=== PATIENT | male | born 1970 | race Caucasian/White ===

== ENCOUNTER 2017-06-01 12:42 | Emergency (ER) | payer OTHER ==
[~2017-06-01] VITALS: Ht 177.8 cm; Wt 113.0 kg
[~2017-06-01 12:42] MED LIST: EFFSR/75 PO; FLM4 PO; MELO7.5T5 PO; PHEN-1043 PO
[2017-06-01 12:47] VITALS: TEMP 37.1; Ht 177.8 cm; Wt 113.0 kg
[2017-06-01] MEDS ORDERED: KETOROLAC TROMETHAMINE 30 MG/ML VIAL IV STA (13:14)
[2017-06-01 13:19] VITALS: O2SAT 94
--- NOTE | 2017-06-01 13:32 | EMERGENCY ROOM VISIT NOTE ---
History Report prepared by Jenna: [facility] Under the Supervision of: Dr. Doni Pappas M.D. First contact with patient: 12:51 Chief Complaint: FLU LIKE SX Stated Complaint: LUNGS AND HEART - SENT BY FROM [facility] History of Present Illness The patient is a 47 year old white male with a past medical history of depression, chronic back pain, hyperlipidemia who presents to the ED with a cc of persistent flu symptoms beginning several days ago. Positive sore throat, SOB. Negative urinary symptoms, change in bowel movement. One week ago, the patient lost consciousness while getting out of bed. He hit his head off of the end table. He denies any alcohol, tobacco, or drug use. He denies any recent travel. He has been eating and drinking well. His son has been sick for a couple weeks. Patient had a negative strep test at his PCP today. Source of History: patient Onset: several days ago Position: other (global) Quality: other (flu symptoms) Timing: other (persistent) Associated Symptoms: + sorethroat, + SOB, No urinary symptoms Review of Systems See HPI for pertinent positives and negatives. A total of ten systems were reviewed and were otherwise negative. Past Medical & Surgical Medical Problems: (1) Appendectomy (2) Back surgery (3) Chronic back pain (4) HLD (hyperlipidemia) (5) Renal colic (6) Ureteral calculus Surgical Problems: (1) H/O discectomy Family History Cancer Diabetes mellitus Hypertension Kidney disease or stones Social History Smoking Status: Never Smoker Alcohol Use: occasionally Drug Use: none Marital Status: Housing Status: lives with family Occupation Status: employed Current/Historical Medications Scheduled Meloxicam (Mobic), 7.5 MG PO DAILY Phenazopyridine HCl (Phenazopyridine HCl), 200 MG PO TID Tamsulosin HCl (Tamsulosin HCl), 0.4 MG PO DAILY Venlafaxine HCl (Venlafaxine HCl ER), PO BID Scheduled PRN Hydrocodone/Acetaminophen 5MG/325MG (Scurry 5MG/325MG), 1 TABLET PO TID PRN for Pain Tramadol (Ultram), 50 MG PO Q8H PRN for Pain Allergies Coded Allergies: Prednisone (Verified Adverse Reaction, Intermediate, Pt states "I get mean ", 06/01/17) Physical Exam Vital Signs Date Time Temp Pulse Resp B/P (MAP) Pulse Ox O2 Delivery O2 Flow Rate FiO2 06/01/17 15:41 86 16 135/89 96 Room Air 06/01/17 14:44 83 18 153/102 96 Room Air 06/01/17 13:19 94 Room Air 06/01/17 13:12 93 18 157/86 94 Room Air 06/01/17 13:09 91 06/01/17 12:47 37.1 94 18 151/97 96 Room Air Physical Exam GENERAL: Awake, alert, well-appearing, NAD, nontoxic HENT: Normocephalic, atraumatic. Posterior pharyngeal erythema. No tonsillar or uvular deviation. No stridor. EYES: Normal conjunctiva. Sclera non-icteric. NECK: Supple. No nuchal rigidity. FROM. RESPIRATORY: CTAB, no rhonchi, wheezing, crackles CARDIAC: RRR, no MRG ABDOMEN: Soft, NTND, BS+ MSK: No chest wall TTP, no LE edema NEURO: GCS 15, CN 2-12 intact, moves all 4s on command SKIN: No rash or jaundice noted. Medical Decision & Procedures ER Provider Diagnostic Interpretation: Radiology results as stated below per my review and radiologist interpretation: CHEST ONE VIEW PORTABLE CLINICAL HISTORY: CHEST PAIN dyspnea COMPARISON STUDY: 12/30/2014 FINDINGS: The bones soft tissues and hemidiaphragms are normal. The cardiomediastinal silhouette is normal. The lungs are clear. The pulmonary vasculature is normal. IMPRESSION: Negative chest. The above report was generated using voice recognition software. It may contain grammatical, syntax or spelling errors. Electronically signed by: Kan Kumar M.D. 06/01/2017 1:37 PM Dictated Date/Time: 06/01/2017 1:36 PM Laboratory Results 06/01/17 13:30 Red Blood Count 4.97, Mean Corpuscular Volume 89.1, Mean Corpuscular Hemoglobin 30.8, Mean Corpuscular Hemoglobin Concent 34.5, Mean Platelet Volume 10.6, Neutrophils (%) (Auto) 51.0, Lymphocytes (%) (Auto) 34.2, Monocytes (%) (Auto) 12.6, Eosinophils (%) (Auto) 1.8, Basophils (%) (Auto) 0.4, Neutrophils # (Auto ) 2.79, Lymphocytes # (Auto) 1.87, Monocytes # (Auto) 0.69, Eosinophils # (Auto ) 0.10, Basophils # (Auto) 0.02 06/01/17 13:30 Test 06/01/17 13:30 White Blood Count 5.47 K/uL (4.8-10.8) Red Blood Count 4.97 M/uL (4.7-6.1) Hemoglobin 15.3 g/dL (14.0-18.0) Hematocrit 44.3 % (42-52) Mean Corpuscular Volume 89.1 fL (80-100) Mean Corpuscular Hemoglobin 30.8 pg (25-34) Mean Corpuscular Hemoglobin Concent 34.5 g/dl (32-36) Platelet Count 208 K/uL (130-400) Mean Platelet Volume 10.6 fL (7.4-10.4) Neutrophils (%) (Auto) 51.0 % Lymphocytes (%) (Auto) 34.2 % Monocytes (%) (Auto) 12.6 % Eosinophils (%) (Auto) 1.8 % Basophils (%) (Auto) 0.4 % Neutrophils # (Auto) 2.79 K/uL (1.4-6.5) Lymphocytes # (Auto) 1.87 K/uL (1.2-3.4) Monocytes # (Auto) 0.69 K/uL (0.11-0.59) Eosinophils # (Auto) 0.10 K/uL (0-0.5) Basophils # (Auto) 0.02 K/uL (0-0.2) RDW Standard Deviation 43.6 fL (36.4-46.3) RDW Coefficient of Variation 13.5 % (11.5-14.5) Immature Granulocyte % (Auto) 0.0 % Immature Granulocyte # (Auto) 0.00 K/uL (0.00-0.02) Prothrombin Time 10.2 SECONDS (9.0-12.0) Prothromb Time International Ratio 1.0 (0.9-1.1) Activated Partial Thromboplast Time 25.6 SECONDS (21.0-31.0) Partial Thromboplastin Ratio 1.0 Anion Gap 8.0 mmol/L (3-11) Est Creatinine Clear Calc Drug Dose 118.4 ml/min Estimated GFR () 108.5 Estimated GFR (Non- 93.6 BUN/Creatinine Ratio 12.4 (10-20) Calcium Level 9.0 mg/dl (8.5-10.1) Total Bilirubin 0.3 mg/dl (0.2-1) Direct Bilirubin < 0.1 mg/dl (0-0.2) Aspartate Amino Transf (AST/SGOT) 18 U/L (15-37) Alanine Aminotransferase (ALT/SGPT) 40 U/L (12-78) Alkaline Phosphatase 65 U/L (45-117) Troponin I < 0.015 ng/ml (0-0.045) Total Protein 8.0 gm/dl (6.4-8.2) Albumin 3.7 gm/dl (3.4-5.0) Lipase 163 U/L (73-393) Laboratory results reviewed by me Medications Administered Medications (Trade) Dose Ordered Sig/James Route Start Time Stop Time Status Last Admin Dose Admin Ketorolac Tromethamine (Toradol Inj) 30 mg NOW STAT IV 06/01/17 13:14 06/01/17 13:15 DC 06/01/17 13:54 30 MG Hydromorphone HCl (Dilaudid Inj) 1 mg NOW STAT IV 06/01/17 14:36 06/01/17 14:38 DC 06/01/17 14:50 1 MG Dexamethasone Sodium Phosphate (Dexamethasone Inj Pf) 10 mg NOW ONCE IV 06/01/17 14:45 06/01/17 14:46 DC 06/01/17 14:51 10 MG Acetaminophen (Tylenol Tab) 1,000 mg NOW STAT PO 06/01/17 14:36 06/01/17 14:38 DC 06/01/17 14:51 1,000 MG ECG Indication: back/shoulder pain Rate (beats per minute): 90 Rhythm: normal sinus Findings: Q waves (lead 3), T-wave inversion (lead 3), other (normal intervals , normal axis, no other STS changes or TWI) Comparison ECG Date: 30-Dec-2014 Change: no significant change ED Course 1308: The patient was evaluated in room B12B. A complete history and physical exam was performed. 1431: I reevaluated the patient. He is complaining of back pain. 1510: Case management has arranged a follow up appointment for tomorrow. 1538: I reevaluated the patient. He is feeling better. Discussed results and discharge instructions: He verbalized understanding and agreement. The patient is ready for discharge. Medical Decision The patient is a 47 year old white male with a past medical history of depression who presents to the ED with a cc of persistent flu symptoms beginning several days ago. Differential diagnosis: Etiologies such as viral syndrome, tonsillitis, streptococcal pharyngitis, mononucleosis, peritonsillar abscess, retropharyngeal abscess, otitis, pneumonia , influenza, as well as others were entertained. Patient was seen and evaluated the bedside. Patient was referred here from her primary care physician's office. Unsure as to whether this was related to the sore throat or due to back pain. Patient does have a history of a prior lumbar surgery completed by Dr. Sosa. On exam the patient is very well-appearing. Patient has stable vitals and is afebrile. Patient did report some questionable syncopal episode approximately a week prior. Patient has no prior history of DVT or PE. Patient did have blood work, EKG, and chest x-ray completed. Patient has a nonfocal and normal neurologic exam. Patient has no bowel or bladder incontinence or saddle anesthesia. Patient has no other high risk features for back pain. Asians EKG was nonischemic with a negative troponin. I don't see any evidence of overt arrhythmia on EKG. Patient has normal white blood cell count has fairly normal blood work otherwise. Patient had a negative chest x-ray. PERC of 0, less likely PE. Upon reassessment the patient did still have some mild back pain. Patient was gait given additional pain medication. Upon reassessment thereafter the patient did have mild improvement but it is back any not resolved. I did discuss the patient with the hospice case manager, who did arrange an appointment for for him to be seen tomorrow at his spinal specialist's office. Patient was agreeable to this plan of care. Patient was deemed suitable for outpatient follow-up and treatment this time. Patient was given strict follow-up, discharge, and return precautions. All questions were answered. Patient was deemed suitable for outpatient follow-up at this time. Patient agreed with the plan of care and was safely discharged home. Medication Reconcilliation Current Medication List: was personally reviewed by me Blood Pressure Screening Patient's blood pressure: Elevated blood pressure Blood pressure disposition: Elevated BP felt to be situational Impression Primary Impression: Sore throat Additional Impression: Back pain Scribe Attestation The scribe's documentation has been prepared under my direction and personally reviewed by me in its entirety. I confirm that the note above accurately reflects all work, treatment, procedures, and medical decision making performed by me. Departure Information Dispostion Home / Self-Care Prescriptions Hydrocodone/Acetaminophen 5MG/325MG (Scurry 5MG/325MG) Tab 1 TABLET PO TID Y for Pain, #9 TAB PRN PAIN Prov: Doni Pappas M.D. 06/01/17 Tramadol (Ultram) 50 Mg Tab 50 MG PO Q8H Y for Pain, #9 TAB Prov: Doni Pappas M.D. 06/01/17 Referrals Kan Cunningham M.D. (PCP) Patient Instructions Back Pain - [facility], [facility], Sore Throat - [facility], Sore Throats Self Care Additional Instructions Please return to the emergency department if you have worsening or recurrent symptoms not amenable to at-home treatment. Please call for a follow-up appointment with her primary care physician. Please take your medications as prescribed. If you have other concerns and/or complaints please feel free to also call your primary care physician's office or return the ED for further evaluation, management, and treatment. Please avoid things like driving or working while ICU or using your medications. They may cause some sedation or tiredness. Please keep her follow-up appointments with your spinal specialist tomorrow. You may take 600 mg Ibuprofen every 6 hours as needed for pain with food for no more than 2 consecutive days. You may take tylenol 1000 mg every 6 hours as needed for pain. You may take motrin and tylenol separately or at the same time. Take your medications as prescribed. You have been examined and treated today on an emergency basis only. This is not a substitute for, or an effort to provide, complete comprehensive medical care. It is impossible to recognize and treat all injuries or illnesses in a single emergency department visit. It is therefore important that you follow up closely with [facility], your PCP, and/or your specialist(s). Call as soon as possible for an appointment. Thank you for your time and consideration. I look forward to speaking with you again soon. Please don't hesitate to call us if you have any questions. Problem Qualifiers Additional Impression: Back pain Back pain location: low back pain Chronicity: chronic Back pain laterality : midline Sciatica presence: without sciatica Qualified Codes: M54.5 - Low back pain; G89.29 - Other chronic pain
--- NOTE | 2017-06-01 13:38 | DIAGNOSTIC IMAGING REPORT ---
CHEST ONE VIEW PORTABLE CLINICAL HISTORY: CHEST PAIN dyspnea COMPARISON STUDY: 12/30/2014 FINDINGS: The bones soft tissues and hemidiaphragms are normal. The cardiomediastinal silhouette is normal. The lungs are clear. The pulmonary vasculature is normal. IMPRESSION: Negative chest. The above report was generated using voice recognition software. It may contain grammatical, syntax or spelling errors. Electronically signed by: Kan Kumar M.D. 06/01/2017 1:37 PM Dictated Date/Time: 06/01/2017 1:36 PM
[2017-06-01 13:58] LABS: ALBUMIN 3.7 gm/dl (3.4-5.0); ALT/SGPT 40 U/L (12-78); BASO % 0.4 %; BASO ABS # 0.02 K/uL (0-0.2); BLOOD UREA NITROGEN 12 mg/dl (7-18); CARBON DIOXIDE 28 mmol/L (21-32); CREATININE 0.95 mg/dl (0.60-1.40); EOS % 1.8 %; GLUCOSE 90 mg/dl (70-99); HEMATOCRIT 44.3 % (42-52); HEMOGLOBIN 15.3 g/dL (14.0-18.0); LIPASE 163 U/L (73-393); LYMPH % 34.2 %; LYMPH ABS # 1.87 K/uL (1.2-3.4); MEAN CELL VOLUME 89.1 fL (80-100); MEAN CORPUSCULAR HEMOGLOBIN 30.8 pg (25-34); MEAN CORPUSCULAR HGB CONC 34.5 g/dl (32-36); MEAN PLATELET VOLUME 10.6 fL (7.4-10.4); MONO % 12.6 %; MONO ABS # 0.69 K/uL (0.11-0.59); NEUT ABS # 2.79 K/uL (1.4-6.5); PLATELET COUNT 208 K/uL (130-400); POTASSIUM 3.9 mmol/L (3.5-5.1); RED CELL DISTRIBUTION WIDTH CV 13.5 % (11.5-14.5); RED CELL DISTRIBUTION WIDTH SD 43.6 fL (36.4-46.3); SODIUM 137 mmol/L (136-145); WHITE BLOOD COUNT 5.47 K/uL (4.8-10.8)
[2017-06-01 14:00] LABS: PTT PATIENT 25.6 SECONDS (21.0-31.0)
[2017-06-01 14:03] LABS: ALKALINE PHOSPHATASE 65 U/L (45-117); AST/SGOT 18 U/L (15-37)
[2017-06-01] MEDS ORDERED: ACETAMINOPHEN 500 MG TAB PO STA (14:36)
[2017-06-01] MEDS ORDERED: HYDROmorphone INJ 1 MG/ML SYR IV STA (14:36)
[2017-06-01] MEDS ORDERED: DEXAMETHASONE **PF** INJ 10 MG/ML VIAL IV ONE (14:45)
[2017-06-01 15:41] VITALS: BP 135/89; PULSE 86; O2SAT 96
[2017-06-01] MEDS ORDERED: HYDR-5688 PO (15:43)
[2017-06-01] MEDS ORDERED: TRAM-10 PO (15:43)
== END 2017-06-01 16:00 | disposition home or self-care (01) ==
LOC: C.EDB 12:43
DX: J02.9 Acute pharyngitis, unspecified (principal); M54.9 Dorsalgia, unspecified; G89.29 Other chronic pain; E78.5 Hyperlipidemia, unspecified; F32.9 Major depressive disorder, single episode, unspecified; Z79.1 Long term (current) use of non-steroidal anti-inflammatories (NSAID); Z80.9 Family history of malignant neoplasm, unspecified; Z83.3 Family history of diabetes mellitus; Z82.49 Family history of ischemic heart disease and other diseases of the circulatory system; Z84.1 Family history of disorders of kidney and ureter

== ENCOUNTER → 2017-08-26 | Day surgery (SDC) | payer OTHER ==
[~2017-08-26] VITALS: Ht 177.8 cm; Wt 111.5 kg
[2017-08-26] VITALS (12 sets, daily range): BP systolic 109–126; BP diastolic 70–89; PULSE 71–81; TEMP 36.4–36.9; O2SAT 92–95; Ht 177.8 cm; Wt 111.5 kg
[~2017-08-26] MED LIST changes: +ACETAMINOPHEN 500 MG TAB PO PRN; +HYDR-5688 PO; +TRAM-10 PO
--- NOTE | 2017-08-26 08:46 | DIAGNOSTIC IMAGING REPORT ---
FLUOROSCOPICALLY GUIDED CERVICAL MYELOGRAM CLINICAL HISTORY: NECK PAIN FLUOROSCOPY TIME: 0.6 minutes. 2 fluoroscopic spot images. PROCEDURE: The procedure, risks and benefits were discussed with the patient including the risk of spinal headache, bleeding, seizure and infection. The patient agreed to the procedure and informed written consent was obtained. The procedure was performed by Dr. Cano following a timeout. The L3 level was targeted. Skin overlying the space was prepped and draped in the usual sterile fashion and local anesthesia was achieved with 1% lidocaine. Under intermittent fluoroscopic guidance, a 20-gauge x 3 1/2 in. Sprotte needle was inserted into the thecal sac. A total of 10 cc of [id number]-M [id number] was injected into the thecal sac. The patient tolerated the procedure well. There were no immediate complications. The patient was transported to the CT suite for further imaging. IMPRESSION: Successful fluoroscopic guided cervical myelogram. No immediate complications. Electronically signed by: Memo Cano M.D. 08/26/2017 8:45 AM Dictated Date/Time: 08/26/2017 8:41 AM
--- NOTE | 2017-08-26 08:57 | DIAGNOSTIC IMAGING REPORT ---
CERVICAL SPINE CT MYELOGRAM HISTORY: Neck pain. TECHNIQUE: Multiaxial CT images of the cervical spinal performed reformatted in the sagittal coronal plane following the intrathecal injection of contrast. COMPARISON STUDY: Outside hospital cervical spine MRI 07/11/2017. FINDINGS: Mild reversal the normal lordotic curvature. No fracture or subluxation within the cervical spine. Prevertebral soft tissues and the C1-C2 interval are intact. The visualized posterior fossa is unremarkable. The lung apices are clear. Mild facet degenerative changes within the mid to lower cervical spine. Mild disc space narrowing at C3-C4 and C4-C5. Mild to moderate disc space narrowing at C5-C6, C6-C7, and C7-T1. Small endplate osteophytes within the mid to lower cervical spine. C2-C3: No central canal or neural foraminal narrowing. C3-C4: Small broad-based posterior disc osteophyte complex resulting in near-complete effacement the anterior thecal sac without cord deformity. This is consistent with minimal central canal narrowing. No significant neural foraminal narrowing. C4-C5: Small broad-based posterior disc osteophyte complex asymmetric to the left without significant central canal narrowing. There is mild left-sided neural foraminal narrowing. C5-C6: Small broad-based posterior osteophyte complex without significant central canal narrowing. There is mild right-sided neural foraminal narrowing. C6-C7: Small broad-based posterior disc osteophyte complex without significant central canal narrowing. There is mild right and moderate left neural foraminal narrowing. C7-T1: No significant central canal or neural foraminal narrowing. IMPRESSION: 1. Mild multilevel degenerative changes as described above most pronounced at the C3-C4 and C5-C6 levels demonstrating minimal central canal narrowing. There is also multilevel [id number] bilateral neural foraminal narrowing. 2. Mild reversal of the normal lordotic curvature. Electronically signed by: Memo Cano M.D. 08/26/2017 8:56 AM Dictated Date/Time: 08/26/2017 8:46 AM
--- NOTE | 2017-08-26 09:26 | Discharge Instructions ---
Discharge Instructions Procedure Procedure Date: Aug 26, 2017. Reason for visit: Cervical Back Pain, Degenerative Disc Disease. Discharge Discharge Date: Aug 26, 2017. Discharge Diagnosis: same Instructions Activity Recommendations: No limitations Return to School/Work: no limitations Recommended Home Diet: Resume Previous Diet Provider Instructions: ACTIVITY RECOMMENDATIONS: * Rest today. * Resume regular activity in one day. MEDICATIONS: * May take Tylenol or Ibuprofen as needed for pain. DIET: * Resume previous diet. SPECIAL CARE INSTRUCTIONS: Call your doctor if: * Temperature above 101 degrees F. * Pain not relieved by pain medicine ordered. * Increased drainage or redness from incision. * Notify your doctor with any questions or concerns. Call your doctor or go to the nearest Emergency Department if you experience: * Increased chest pain or shortness of breath. FOLLOW UP VISIT: Follow-up with Referring Physician as scheduled. Allergies Coded Allergies: Prednisone (Verified Adverse Reaction, Intermediate, Pt states "I get mean ", 08/26/17) Carlos Ibanez Recommendations: Call your doctor if: * Temperature above 101 degrees * Pain not relieved by pain medicine ordered * There is increased drainage or redness from any incision * You have any unanswered questions or concerns. Your Doctors Instructions noted above were prepared by provider Memo Cano. Patient Signature Section: Patient Instructions Signature Page Mike Chamorro Patient (or Guardian) Signature/Date: I have read and understand the instructions given to me by my caregivers. Caregiver/RN/Doctor Signature/Date: The above-named patient and/or guardian has received patient instructions on this date. + Original Patient Signature Page (only) stays with chart. Please make copy for patient.
== END | disposition home or self-care (01) ==
LOC: C.ACU 06:45
PROVIDERS: ATTEND Orthopaedic Surgery Orthopaedic Surgery of the Spine
DX: M50.31 Other cervical disc degeneration, high cervical region (principal); M50.322 Other cervical disc degeneration at C5-C6 level

== ENCOUNTER 2017-12-21 13:41 | Emergency (ER) | payer OTHER ==
[~2017-12-21] VITALS: Ht 177.8 cm; Wt 112.4 kg
[~2017-12-21 13:41] MED LIST changes: -ACETAMINOPHEN 500 MG TAB PO PRN; -FLM4 PO; -HYDR-5688 PO; -PHEN-1043 PO; -TRAM-10 PO
[2017-12-21 13:45] VITALS: TEMP 37.2; Ht 177.8 cm; Wt 112.4 kg
[2017-12-21] MEDS ORDERED: ONDANSETRON 4MG OD TAB PO STA (14:12)
[2017-12-21] MEDS ORDERED: KETOROLAC TROMETHAMINE 60 MG/2 ML VIAL IM STA (14:12)
[2017-12-21] MEDS ORDERED: HYDROmorphone INJ 2 MG/ML SYR/VIAL IM STA (14:12)
[2017-12-21] MEDS ORDERED: IBUP-103 PO (14:14)
--- NOTE | 2017-12-21 14:40 | DIAGNOSTIC IMAGING REPORT ---
LUMBAR SPINE WITHOUT CT DOSE: 671.99 mGy.cm HISTORY: Trauma. Pain. EVAL BACK PAIN AFTER FALL TECHNIQUE: Multiaxial CT images of the lumbar spine were performed and reformatted in the sagittal and coronal plane without the use of contrast. A dose lowering technique was utilized adhering to the principles of ALARA. COMPARISON: 10/28/2012 FINDINGS: Moderate degenerative disc change at the entire lumbar region. Findings of posterior laminectomy and fusion from L3 through S1. The metallic hardware appears to be intact. Paravertebral soft tissues are unremarkable. No evidence for compression deformity. Posterior element. Be intact. IMPRESSION: No acute process. Findings of a laminectomy and fusion from L3 through S1. The above report was generated using voice recognition software. It may contain grammatical, syntax or spelling errors. Electronically signed by: Kan Kumar M.D. 12/21/2017 2:38 PM Dictated Date/Time: 12/21/2017 2:35 PM
[2017-12-21] MEDS ORDERED: HYDROmorphone INJ 1 MG/ML SYR IM STA (15:33)
[2017-12-21] MEDS ORDERED: OXYC-737 PO (16:06)
--- NOTE | 2017-12-21 16:08 | EMERGENCY ROOM VISIT NOTE ---
ED Visit Note First contact with patient: 13:51 CHIEF COMPLAINT: Low back pain after a fall 3 days ago HISTORY OF PRESENT ILLNESS: Patient is a 47-year-old male who is status post lumbar surgery resents the emergency department for evaluation of low back pain after a mechanical fall 3 days ago. He states that he slipped on some wet wood and fell. He landed on his back. He did not strike his head or lose consciousness. He complains of back pain, from his low back to his shoulders, but the worst pain is in the midline of the low back, along the belt line, more to the left. He describes it as a sharp pain that is worse with movement. He rested, took ibuprofen and applied ice to the area but the pain is not getting any better. He rates his discomfort a 9/10 presently. He denies any radiation of the pain into his legs or his buttocks. He does have some chronic weakness in his legs and denies any changes in this, and he denies any numbness or tingling in the legs. No bowel or bladder incontinence or saddle anesthesia. He denies trying to contact his surgeon. REVIEW OF SYSTEMS: Review of systems as per HPI. All other systems reviewed were negative. 10 systems reviewed. PMH: Electronic medical records are reviewed and summarized as above/below. See Problem List. SOCIAL HISTORY: Patient lives at home with his . He is disabled. PHYSICAL EXAM: Vital Signs: Reviewed Nurse's notes. CONSTITUTIONAL: Patient is an uncomfortable appearing 47-year-old male who is awake and alert and laying supine on the gurney in moderate distress due his stated complaint. There is significant discomfort with position changes. CARDIOVASCULAR: Regular rate and rhythm. Peripheral pulses easily palpable. RESPIRATORY: Breath sounds equal and clear to auscultation without wheezes, rales, or rhonchi heard. Full and equal chest expansion without accessory muscle use or retractions. ABDOMEN: Bowel sounds are present. Abdomen is soft, nontender and nondistended. INTEGUMENTARY: No lesions or rash, normal skin turgor. LYMPH: No lymphadenopathy. SPINE: Examination of the patient's back does not demonstrate any ecchymosis, abrasions or outward signs of trauma. No erythema, increased warmth or induration. Well-healed surgical scars are noted. Patient has midline discomfort to palpation over the low lumbar spine, primarily on the left. There is no pain over the SI joint or the sciatic notch. He has increased pain with range of motion including rotation and flexion. EXTREMITIES: Leg lengths are symmetrical. Negative logroll bilaterally. Normal strength including dorsi-flexion and plantar flexion of the great toes and ankles and flexion and extension of the knees and flexion of the hips. Straight leg raise testing causes significant back discomfort, left greater than right, but does not reproduce any radicular symptoms.. Lower extremity DTRs are equal and symmetrical bilaterally. Distal pulses are easily palpable. Sensation light touch is intact over the lower extremities bilaterally. EMERGENCY DEPARTMENT COURSE: The patient was seen and assessed as above. His old records were reviewed. He was medicated with Dilaudid 2 mg IM and Toradol 60 mg IM with Zofran ODT. Lumbar spine CT was obtained. There is no evidence for acute fracture or hardware compromise. The patient was reassessed, reported only slight relief of his discomfort. He was given an additional Dilaudid 1 mg IM. Supportive care measures were discussed. Certainly the fall is enough reason to cause an exacerbation of his chronic underlying pain. Fortunately he does not have any evidence for acute fracture or hardware compromise. He was reassured, and told to continue to ice the back, then switch to moist heat if needed. He was given a small prescription for oxycodone to use as needed for pain was encouraged to use ibuprofen as well. He can follow up with his orthopedic spine surgeon for further care and management if his symptoms are not improving. MEDICAL DECISION MAKING: I do not suspect acute compression syndrome, cauda equina, diskitis, epidural abscess, hematoma or neurovascular compromise. Patient was reviewed in the [facility] Prescription Drug Monitoring Program, and there were no red flags noted. Blood pressure screening : Patient was found to have normal blood pressure on screening and does not require follow-up. Medication reconciliation: I attest that I have personally reviewed the patient' s current medication list. LUMBAR SPINE WITHOUT CT DOSE: 671.99 mGy.cm HISTORY: Trauma. Pain. EVAL BACK PAIN AFTER FALL TECHNIQUE: Multiaxial CT images of the lumbar spine were performed and reformatted in the sagittal and coronal plane without the use of contrast. A dose lowering technique was utilized adhering to the principles of ALARA. COMPARISON: 10/28/2012 FINDINGS: Moderate degenerative disc change at the entire lumbar region. Findings of posterior laminectomy and fusion from L3 through S1. The metallic hardware appears to be intact. Paravertebral soft tissues are unremarkable. No evidence for compression deformity. Posterior element. Be intact. IMPRESSION: No acute process. Findings of a laminectomy and fusion from L3 through S1. Problem List Medical Problems: (1) Back pain Status: Resolved (2) Chronic back pain Status: Chronic (3) HLD (hyperlipidemia) Status: Chronic (4) Hydronephrosis Status: Resolved (5) Hydroureter Status: Resolved (6) Renal colic Status: Resolved (7) Renal stone Status: Resolved (8) Sore throat Status: Resolved (9) Ureteral calculus Status: Resolved Surgical Problems: (1) Appendectomy Status: Resolved (2) Back surgery Status: Resolved (3) H/O discectomy Status: Resolved (4) History of lumbar fusion Status: Resolved Current/Historical Medications Scheduled Venlafaxine HCl (Venlafaxine HCl ER), PO BID Miscellaneous Medications Ibuprofen Tab (Advil), 200 MG PO Allergies Coded Allergies: Prednisone (Verified Adverse Reaction, Intermediate, Pt states "I get mean ", 12/21/17) Vital Signs Date Time Temp Pulse Resp B/P (MAP) Pulse Ox O2 Delivery O2 Flow Rate FiO2 12/21/17 15:51 85 18 142/79 95 Room Air 12/21/17 13:45 37.2 103 18 149/93 98 Room Air Medications Administered Medications (Trade) Dose Ordered Sig/James Route Start Time Stop Time Status Last Admin Dose Admin Ketorolac Tromethamine (Toradol Inj) 60 mg NOW STAT IM 12/21/17 14:12 12/21/17 14:13 DC 12/21/17 14:37 60 MG Hydromorphone HCl (Dilaudid Inj) 2 mg NOW STAT IM 12/21/17 14:12 12/21/17 14:13 DC 12/21/17 14:36 2 MG Ondansetron HCl (Zofran Odt) 4 mg NOW STAT PO 12/21/17 14:12 12/21/17 14:13 DC 12/21/17 14:37 4 MG Hydromorphone HCl (Dilaudid Inj) 1 mg NOW STAT IM 12/21/17 15:33 12/21/17 15:34 DC 12/21/17 15:48 1 MG Departure Information Impression Primary Impression: Acute exacerbation of chronic low back pain Additional Impression: Fall Prescriptions Oxycodone Immediate Rel Tab (ROXICODONE IR) 5 Mg Tab 1-2 TAB PO Q4H Y for Severe Pain, #25 TAB For Initial Treatment Prov: Mónica Uriostegui PA 12/21/17 Referrals Kan Cunningham M.D. (PCP) Patient Instructions My [facility] Additional Instructions DO NOT drive, drink alcohol, operate machinery, or perform dangerous activities today. You were given medications in the ER that can affect your ability to safely function or operate a vehicle. Oxycodone (OxyIR) 5mg: Take 1-2 pills every four hours for breakthrough pain. Avoid alcohol, operating machinery or dangerous equipment, working on ladders or roofs, DRIVING, or situations where being under the influence may be dangerous. It is recommended to use an [id number] stool softener such as Colace, 100mg twice daily while taking this medication to avoid constipation. Ibuprofen(Motrin, Advil) may be used for fever or pain. Use 600mg every six hours as needed. Take with food. Avoid using more than 2400mg in a 24 hour period. Do not use 2400mg per day for more than three consecutive days without physician direction. Prolonged inappropriate use can lead to stomach upset or ulcers. This medication can be taken if you need to drive, work, or perform activities which may be dangerous when taking narcotic pain medication. (AND/OR) Acetaminophen(Tylenol) may be used for fever or pain. Use 1000mg every six hours as needed. Avoid using more than 3000mg in a 24 hour period. This medication can be taken if you need to drive, work, or perform activities which may be dangerous when taking narcotic pain medication. Rest and avoid heavy lifting until your symptoms resolve and then gradually return to full activity. A good rule of thumb is if it hurts your back to perform a certain activity, then it should be avoided until you are healthy again. A heating pad, warm compresses, or a hot shower may help with tight muscles and can be done several times a day as needed. Continue current medications. Return to the ER immediately for any numbness, tingling, severe pain, loss of control of your bowels or bladder, inability to walk, or as needed. Follow up with your primary care physician within 3-5 days for a recheck of your current condition. Problem Qualifiers Additional Impression: Fall Encounter type: initial encounter Qualified Codes: W19.XXXA - Unspecified fall, initial encounter
[2017-12-21 18:04] VITALS: BP 152/100; PULSE 82; O2SAT 92
== END 2017-12-21 18:05 | disposition home or self-care (01) ==
LOC: C.EDB 13:42 → C.EDD 18:05
DX: M54.5 Low back pain (principal); G89.29 Other chronic pain; W01.0XXA Fall on same level from slipping, tripping and stumbling without subsequent striking against object, initial encounter; Z88.8 Allergy status to other drugs, medicaments and biological substances

== ENCOUNTER 2020-01-14 17:11 | Observation (INO) ==
[2020-01-14] MEDS ORDERED: HYDROmorphone INJ 1 MG/ML SYRINGE IV STA ×2 (17:36→19:16)
[2020-01-14] MEDS ORDERED: DIAZEPAM 5 MG/ML INJ 10ML VIAL IV STA (17:36)
[2020-01-14] MEDS ORDERED: DEXAMETHASONE SOD INJ 4 MG/ML VIAL IV STA (17:43)
--- NOTE | 2020-01-14 17:51 | Emergency Department Note ---
History of Present Illness General Chief complaint: Back Injury/Pain Stated complaint: back pain Time Seen by Provider: 01/14/20 17:20 Source: patient Mode of arrival: ambulatory Limitations: no limitations History of Present Illness Provider complaint: back pain Onset (ago): day(s) 4 Location: back Radiation: back Severity: severe Pain Consistency: + constant Maximum Pain Intensity: 9 Current Pain Intensity: 9 Quality: + constant Relieved By: + none Exacerbated By: + movement Associated symptoms: + denies other symptoms Treatments prior to arrival: NSAID and other (flexeril) This is a 49-year-old male presents the emergency department with complaints of worsening back pain. Patient has a long history of back pain and back problems including [address] Sosa. Patient also sees pain management and undergoes injections periodically for increased pain. Patient states he started having pain on of last week. Patient denies any trauma or change in activity. Patient states he was trying to "take it easy", using Tylenol and ibuprofen without any relief. Patient states today when he walked outside he reached over his son's car to pull out the dipstick and the pain suddenly worsened. He states he went inside took 1 of his 's Flexeril and tried to lay down. He states the pain did not improve so he decided come the emergency room. Patient states he has not seen pain management or Dr. Sosa since before the pandemic. Patient does not have an upcoming scheduled appointment, he calls them as needed. Patient denies any other change in his routine medications. States he is staying well-hydrated. Patient denies any abdominal pain, fevers or chills, change in bowel or bladder function. Patient denies saddle anesthesia although reports an intermittent sense of "vibrations" to his right inguinal region. Patient states he does intermittently get lower extremity numbness. Patient denies any sense of lower extremity weakness, patient is able to ambulate. Patient denies any other sick contact or known exposure to any coronavirus positive individual. Pt seen during a time of high acuity and national emergency pandemic while wearing PPE. Home Medications Home Medications Medication Instructions Recorded Confirmed Type venlafaxine 75 mg PO HS 06/14/18 01/14/20 History venlafaxine 150 mg PO QAM 06/14/18 01/14/20 History cyclobenzaprine 0 mg PO .TODAY 01/14/20 01/14/20 History triamcinolone acetonide 1 applic TOPICAL BID PRN 01/14/20 01/14/20 History ibuprofen [Advil] 600 mg PO Q8 PRN #0 tab 01/15/20 01/14/20 Rx oxycodone 5 mg PO Q6 PRN #10 tab 01/15/20 Rx Allergies Allergy/AdvReac Type Severity Reaction Status Date / Time prednisone AdvReac Intermediate Pt states Verified 01/14/20 17:49 "I get mean" Past Med/Surg History Medical History Back pain Renal colic Sore throat Ureteral calculus Surgical History History of lumbar surgery S/P arthroscopic knee surgery Social History Smoking Status: Never smoker Second Hand Exposure: No; Do You Dip or Chew Tobacco: No; Tobacco Cessation Education Requested by Patient: No Hx Alcohol Use: No Hx Substance Use: No Preferred Language: Bulgarian Communication Ability: Effective Strategic Marketing Specialist Required: No Beliefs That Will Affect Care: None Current Living Situation: Family Other Information That Helps Us Care for You: No Feels Safe at Home: Yes Safety Concerns: Feels Safe At This Time Review of Systems See HPI for pertinent positives & negatives. and A total of 10 systems reviewed and were otherwise negative Physical Exam Vital Signs Vital Signs - 24 hr 01/14/20 17:15 01/14/20 18:07 01/14/20 20:00 Temperature 37.2 C Temperature Source Oral Pulse Rate 95 H Pulse Rate [Apical] 84 80 Pulse Rhythm Regular Pulse Strength Normal Respiratory Rate 18 18 20 Respiratory Effort / Characteristics Non-Labored Spontaneous Non-Labored Respiratory Depth Normal Normal Respiratory Pattern Regular Blood Pressure 150/96 H Blood Pressure [Left Arm] 138/87 124/82 Blood Pressure Mean 114 Blood Pressure Mean [Left Arm] 104 96 Blood Pressure Position Sitting Pulse Oximetry 97 94 98 Oxygen Delivery Method Room Air Room Air Room Air Sepsis Recent Fever Within 48 Hours No Sepsis New/Unexplained Change in Mental Status No Sepsis Action Taken by Nursing No Action Required 01/14/20 21:38 Temperature Temperature Source Pulse Rate Pulse Rate [Apical] 76 Pulse Rhythm Pulse Strength Respiratory Rate 18 Respiratory Effort / Characteristics Respiratory Depth Respiratory Pattern Blood Pressure Blood Pressure [Left Arm] 147/84 H Blood Pressure Mean Blood Pressure Mean [Left Arm] 105 Blood Pressure Position Pulse Oximetry 93 Oxygen Delivery Method Room Air Sepsis Recent Fever Within 48 Hours Sepsis New/Unexplained Change in Mental Status Sepsis Action Taken by Nursing GENERAL: alert, uncomfortable appearing, well nourished, mild distress, non- toxic EYE EXAM: normal conjunctiva, PERRL and EOM's grossly intact OROPHARYNX: no exudate, no erythema, lips, buccal mucosa, and tongue normal and mucous membranes are moist NECK: supple, no nuchal rigidity, no adenopathy, non-tender LUNGS: Clear to auscultation. Normal chest wall mechanics, no w/r/r HEART: no murmurs, S1 normal and S2 normal ABDOMEN: abdomen soft, non-tender, normo-active bowel sounds, no masses, no rebound or guarding. BACK: Back is symmetrical on inspection and there is no deformity, pain with palpation of the thoracic and lumbar spine, no CVA tenderness. SKIN: no rashes and no bruising UPPER EXTREMITIES: upper extremities are grossly normal. FROM, nml pulses b/l. LOWER EXTREMITIES: No pitting edema. FROM, nml pulses b/l. NEURO EXAM: Normal sensorium, cranial nerves II-XII grossly intact, normal speech, no gross weakness of arms, no gross weakness of legs. Gross sensation intact. Course Course 1744: After paging Dr. Sosa, his PA Dilshad Hawkins return the call. States he knows patient very well. States he has had complaints of lower extremity paresthesias previously that this is not new. States he typically responds well to Decadron and a Medrol Dosepak. States he try to avoid narcotics in him, and confirmed he does see pain management. States they are happy to follow-up in the office this week to reevaluate him, and he will pass along the patient's name and information to his office staff. Does not feel the patient needs repeat imaging at this time. 0: Patient states he still having pain. Updated on discussion with spine staff PA. 0: Pt and now at bedside stating they are concerned about what to do with his pain. Pt states he is still having back pain. They are concerned about him needing imaging. 2330: Patient updated on imaging results. Patient states additional as needed pen provides only very temporary relief and then it wears off. Discussed options for disposition as well as pain medications I could give him at home. After additional bedside discussion, patient agreeable with additional inpatient evaluation and management. 2342: Case discussed with Dr. Avilez, [facility] hospitalist. Administered Medications Discontinued Medications Dexamethasone (Dexamethasone Sod Inj 4 Mg/Ml Vial) 8 mg IV NOW STA Stop: 01/14/20 17:44 Last Admin: 01/14/20 18:28 Dose: 8 mg Documented by: [id number] Diazepam (Diazepam 5 Mg/Ml Inj 10ml Vial) 2 mg IV NOW STA Stop: 01/14/20 17:37 Last Admin: 01/14/20 18:10 Dose: 2 mg Documented by: [id number] Docusate Sodium (Docusate Sodium 100 Mg Cap) 100 mg PO BID ALEN Stop: 02/14/20 20:59 Last Admin: 01/15/20 20:11 Dose: 100 mg Documented by: [id number] Gadobutrol (Gadobutrol 65ml Vial) 10.8 ml IV ONCE ONE Stop: 01/14/20 22:21 Last Admin: 01/14/20 22:20 Dose: 10.8 ml Documented by: [id number] Hydromorphone HCl (Hydromorphone Inj 1 Mg/Ml Syringe) 1 mg IV NOW STA Stop: 01/14/20 17:37 Last Admin: 01/14/20 18:06 Dose: 1 mg Documented by: [id number] Hydromorphone HCl (Hydromorphone Inj 1 Mg/Ml Syringe) 1 mg IV NOW STA Stop: 01/14/20 19:17 Last Admin: 01/14/20 19:41 Dose: 1 mg Documented by: [id number] Hydromorphone HCl (Hydromorphone Inj 1 Mg/Ml Syringe) 1 mg IV Q15M PRN PRN Reason: Pain Stop: 01/28/20 21:18 Last Admin: 01/14/20 21:37 Dose: 1 mg Documented by: [id number] Hydromorphone HCl (Hydromorphone Inj 1 Mg/Ml Syringe) 1 mg IV Q4H PRN PRN Reason: Pain Stop: 01/29/20 01:12 Last Admin: 01/15/20 20:11 Dose: 1 mg Documented by: [id number] Admin: 01/15/20 13:40 Dose: 1 mg Documented by: [id number] Admin: 01/15/20 09:32 Dose: 1 mg Documented by: [id number] Admin: 01/15/20 01:13 Dose: 1 mg Documented by: [id number] Sodium Chloride (Nss 1000ml) 1,000 mls @ 200 mls/hr IV .Q5H ALEN Stop: 02/13/20 17:44 Last Infusion: 01/15/20 01:43 Dose: 0 mls/hr Documented by: [id number] Admin: 01/15/20 01:15 Dose: Not Given Documented by: [id number] Admin: 01/14/20 18:12 Dose: 200 mls/hr Documented by: [id number] Acetaminophen ([facility]) 1,000 mg in 100 mls @ 400 mls/hr IV NOW STA Stop: 01/14/20 18:53 Last Infusion: 01/14/20 19:08 Dose: 0 mls/hr Documented by: [id number] Admin: 01/14/20 18:43 Dose: 400 mls/hr Documented by: [id number] Ketorolac Tromethamine (Ketorolac Tromethamine 15 Mg/Ml Vial) 10 mg IV NOW ONE Stop: 01/14/20 18:40 Last Admin: 01/14/20 18:43 Dose: 10 mg Documented by: [id number] Ketorolac Tromethamine (Ketorolac Tromethamine 15 Mg/Ml Vial) 15 mg IV Q6H PRN PRN Reason: Pain Stop: 01/20/20 15:13 Last Admin: 01/15/20 15:41 Dose: 15 mg Documented by: [id number] Oxycodone HCl (Oxycodone Hcl Ir 5 Mg Tab (Immediate Release)) 5 mg PO Q6H PRN PRN Reason: Pain Stop: 01/29/20 01:12 Last Admin: 01/15/20 07:22 Dose: 5 mg Documented by: [id number] Venlafaxine HCl (Venlafaxine Hcl Xr 75 Mg Capxr) 75 mg PO HS [facility] Stop: 02/14/20 20:59 Last Admin: 01/15/20 20:11 Dose: Not Given Documented by: [id number] Venlafaxine HCl (Venlafaxine Hcl Xr 150 Mg Capxr) [facility] [place] Stop: 02/14/20 08:59 Last Admin: 01/15/20 09:27 Dose: 150 mg Documented by: [id number] Medical Decision Making Differential Diagnosis Differential diagnoses includes but is not limited to lumbar radiculopathy, muscle strain, facture, cauda equina, mass, and disc herniation. Medical Records Attestation: I reviewed the patient's medical records. Home Medications Current Medication List: was personally reviewed by me Laboratory Data Attestation: I reviewed the patient's lab results. Result diagrams: 01/15/20 07:03 01/15/20 07:03 Lab Results 01/14/20 01/15/20 01/15/20 Range/Units 17:56 07:03 07:03 WBC 12.41 H (4.8-10.8) K/uL RBC 4.72 (4.7-6.1) M/uL Hgb 14.0 (14.0-18.0) g/dL POC Hgb 14.6 (14.0-18.0) g/dl Hct 43.1 (42-52) % POC Hct 43 (42-52) % MCV 91.3 (80-100) fL MCH 29.7 (25-34) pg MCHC 32.5 (32-36) g/dL RDW Std Deviation 44.7 (36.4-46.3) fL RDW Coeff of Elizabeth 13.4 (11.5-14.5) % Plt Count 231 (130-400) K/uL MPV 11.0 H (7.4-10.4) fL Immature Gran % (Auto) 0.2 % Neut % (Auto) 85.2 % Lymph % (Auto) 11.5 % Rock % (Auto) 3.1 % Eos % (Auto) 0.0 % Baso % (Auto) 0.0 % Neut # (Auto) 10.56 H (1.4-6.5) K/uL Lymph # (Auto) 1.43 (1.2-3.4) K/uL Rock # (Auto) 0.39 (0.11-0.59) K/uL Eos # (Auto) 0.00 (0-0.5) K/uL Baso # (Auto) 0.00 (0-0.2) K/uL Immature Gran # (Auto) 0.03 H (0.00-0.02) K/uL POC Sodium 140 (135-144) mmol/L Sodium 139 (136-145) mmol/L POC Potassium 4.1 (3.3-5.0) mmol/L Potassium 4.4 (3.5-5.1) mmol/L POC Chloride 103 (101-112) mmol/L Chloride 105 (98-107) mmol/L Carbon Dioxide 29 (21-32) mmol/L POC Total CO2 26 (24-31) mmol/L Anion Gap 5.0 (3-11) POC Anion Gap 16.0 (16-25) mmol/L POC BUN 14 (7-18) mg/dl BUN 20 H (7-18) mg/dl Creatinine 0.91 (0.6-1.4) mg/dl POC Creatinine 1.0 (0.6-1.3) mg/dl Est Cr Clr Drug Dosing 118.3 ml/min Est GFR ( Amer) 112.7 Est GFR (Non-Af Amer) 97.2 BUN/Creatinine Ratio 21.3 H (10-20) Glucose 131 H (70-99) mg/dl POC Glucose (other) 113 H (70-99) mg/dl Calcium 8.8 (8.5-10.1) mg/dl POC Ioniz Calcium Ender 1.18 (1.12-1.32) mmol/l Magnesium 2.1 (1.8-2.4) mg/dl Imaging Data Radiologist's Impression: MRI T-spine: No acute fracture or subluxation. No bone marrow edema. Incidental hemangiomas at T2, T7, T9. No cord edema or enhancement. Small disc bulge at T2-3, T4-5, T6-7, T7-8, T8-T9, T9-10. Mild central spinal stenosis at T7-8 and a mild left paracentral stenosis at T7-9. Moderate foraminal stenosis at right C5-6 and left T4-5. Radiologist: Lona Kimbrough MD Blood Pressure Blood Pressure Findings: Elevated blood pressure Blood Pressure Disposition: further management by hospitalist CARMEN Narrative Pt presents with hx of chronic back pain and acutely worse pain since last week and worse yet today. Pt sees pain mgmt for injections doesn't use chronic pain meds or muscle relaxers. Pt received several medications and complained his pain wasn't improved. No focal neuro deficit and no sx to suggest cauda equina although pt does have intermittent positional b/l paresthesias in the LE. Pt afebrile. Basix labs reassuring. Pt sent for MR due to persistent pain and pt/ concerned about occult pathology as he has had this happen previously and required emergent surgery. Due to persistent pain, discussed additional inpatient mgmt and pt in agreement. An order was placed for continuous cardiac monitoring. The monitor shows a rate of _96_ with _normal sinus__ rhythm. Impression & Plan Thoracic back pain, Bulging discs, Intractable back pain Discharge Plan Visit Data Chief Complaint: Back Injury/Pain Stated Complaint: back pain ED Provider: Anjana Kuo Discharge Problem: Thoracic back pain, Bulging discs, Intractable back pain Patient Disposition: Admitted As Inpatient Discharge Instructions Interventions: ED Discharge Assessment Last Done: 01/15/20 00:58 Discharge Problem: Thoracic back pain Qualifiers: Chronicity: chronic Back pain laterality: bilateral Qualified Code(s): M54.6 - Pain in thoracic spine
[2020-01-14 18:11] LABS: iSTAT Hemoglobin 14.6 g/dl (14.0-18.0); iSTAT Ionized Calcium 1.18 mmol/l (1.12-1.32); iSTAT Potassium 4.1 mmol/L (3.3-5.0)
[2020-01-14] MEDS: SODIUM CHLORIDE 0.9% 1000ML 1,000 ML IV SCH (18:12)
[2020-01-14] MEDS ORDERED: ACETAMINOPHEN 1,000 MG/100 ML VIAL IV STA (18:39)
[2020-01-14] MEDS ORDERED: KETOROLAC TROMETHAMINE 15 MG/ML VIAL IV ONE (18:39)
[2020-01-14] MEDS ORDERED: HYDROmorphone INJ 1 MG/ML SYRINGE IV PRN (21:19)
[2020-01-14] MEDS ORDERED: GADOBUTROL 65ML VIAL IV ONE (22:20)
[2020-01-15] MEDS ORDERED: ONDANSETRON INJ 2 MG/ML 2 ML VIAL IV PRN (01:13)
[2020-01-15] MEDS ORDERED: OXYCODONE HCL IR 5 MG TAB (IMMEDIATE RELEASE) PO PRN ×2 (01:13→12:31)
[2020-01-15] MEDS ORDERED: ACETAMINOPHEN 325 MG TAB PO PRN (01:13)
[2020-01-15] MEDS ORDERED: TRIAMCINOLONE ACET 0.1% CR 15 GM TUBE TOP PRN (01:13)
[2020-01-15] MEDS: HYDROmorphone INJ 1 MG/ML SYRINGE IV PRN ×4 (01:13→20:11)
[2020-01-15] MEDS ORDERED: POLYETHYLENE (MIRALAX) 17 GM PACK PO PRN (01:13)
[2020-01-15] MEDS: SODIUM CHLORIDE 0.9% 1000ML 1,000 ML IV SCH (01:15)
--- NOTE | 2020-01-15 01:24 | History and Physical Report ---
DATE OF ADMISSION: 01/15/2020 CHIEF COMPLAINT: Severe intractable back pain. HISTORY OF PRESENT ILLNESS: A 49-year-old male with past medical history significant for hyperlipidemia, obstructive sleep apnea, on CPAP; chronic rhinitis, hemorrhoids, history of back surgeries x4, cervical disc disorder with radiculopathy, adjustment disorder with depression, presents with severe back pain. The patient says the pain started last , but yesterday when he tried to bend down to help his son who was changing the oil in the car, the pain became very severe. It made him short of breath and since then the pain was intractable, so he came to the ER. Received Decadron, multiple doses of Dilaudid, Toradol, Valium and still requiring pain medication, so we were called for admission. MRI scan of the thoracic spine was done in the ER which showed multiple level small thoracic spine disc bulges and right C5-C6 and left T4-T5 moderate foraminal stenosis. The patient's pain is in the upper back and thoracic spine and neck region. He is feeling hot, but denies any fever or chills, has headache, no blurred vision, no earache, no runny nose, no sore throat, no cough. No dysphagia, no chest pain, no shortness of breath, no nausea, no abdominal pain. Normal bowel and bladder movements. No swelling in the legs. No rash. Ambulating okay. ALLERGIES: PREDNISONE. PAST MEDICAL HISTORY: As mentioned above. PAST SURGICAL HISTORY: Colonoscopy, cystoscopy, L4-L5 discectomies, back surgery x4, sacroiliac joint steroid shots, umbilical hernia repair. HOME MEDICATIONS: The patient is on venlafaxine 150 mg in a.m. and 175 mg in the p.m., triamcinolone p.r.n., Advil p.r.n., cyclobenzaprine p.r.n. FAMILY HISTORY: Significant for father had arthritis. Mother had colon cancer, diabetes. Son has back pain. SOCIAL HISTORY: and lives with his . Former smoker, quit in 2012, former use of smokeless tobacco, quit in 2012. Alcohol rarely. No drug use. REVIEW OF SYMPTOMS: As per HPI. Rest of review of symptoms negative. PHYSICAL EXAMINATION: GENERAL: The patient is obese, not in acute distress. VITAL SIGNS: Temperature 37.2, pulse 76, respiratory rate 18, blood pressure 147/84, oxygen 93% on room air. HEENT: Pupils equal, round, reactive to light. Extraocular muscles intact. NECK: Supple, no neck masses seen. CARDIOVASCULAR: S1, S2 heard, regular rate and rhythm, no murmur, no gallop. RESPIRATORY SYSTEM: Normal AP diameter. No accessory muscle use. No wheezing, no crackles. ABDOMEN: Soft, bowel sounds present, nontender. No distention. CENTRAL NERVOUS SYSTEM: Cranial nerves II-XII grossly intact, nonfocal. MUSCULOSKELETAL: Thoracic spinal tenderness present. Straight leg test negative. EXTREMITIES: No edema, no erythema. LABORATORY DATA: WBC____, hemoglobin 14.6, hematocrit 43. Point of care sodium 140. Point of care potassium 4.1, point of care chloride 103, point of care CO2 26, point of care BUN 14, point of care creatinine 1, point of care glucose 113, point of care ionized calcium 1.18. Thoracic spine MRI preliminary report shows no acute fracture or subluxation, no bone marrow edema, incidental hemangiomas at T2, T7, T9, no cord edema or enhancement, small disc bulge at T2- T3, T4- T5, T6-T7, T7-T8, T8-T9, T9-T10 levels. Mild central spinal stenosis at T7-T8 and mild left paracentral stenosis at T9-T10, moderate foraminal stenosis at right C5-C6 and left T4-T5. ASSESSMENT AND PLAN: This is a 49-year-old male who presented with intractable back pain. 1. Intractable back pain, multiple level disc bulges and moderate stenosis in the thoracic spine and cervical spine. History of multiple lower back surgeries: Requirements of significant pain medication in the ER, continue with IV Dilaudid 1 mg q. 4 hours p.r.n. and oxycodone 5 mg p.o. q. 6 hours p.r.n. Consult orthopedics in a.m. Monitor in the medical floor. 2. History of depression: Continue venlafaxine. 3. Obstructive sleep apnea: On CPAP at bedtime. 4. Deep venous thrombosis prophylaxis: Sequential compression devices for now. DISPOSITION: Observe in medical floor. Expect discharge home and follow with family doctor. Level 1 full code. MTDD
[2020-01-15 07:25] LABS: Hematocrit (blood only) 43.1 % (42-52); Immature Granulocytes # (auto) 0.03 K/uL (0.00-0.02); Immature Granulocytes % (auto) 0.2 %; Lymphocytes # (auto) 1.43 K/uL (1.2-3.4); Lymphocytes % (auto) 11.5 %; Mean Corpuscular Hemoglobin 29.7 pg (25-34); Mean Corpuscular Hgb Conc 32.5 g/dL (32-36); Mean Corpuscular Volume 91.3 fL (80-100); Monocytes # (auto) 0.39 K/uL (0.11-0.59); Monocytes % (auto) 3.1 %; Neutrophils # (auto) 10.56 K/uL (1.4-6.5); Neutrophils % (auto) 85.2 %; Platelet Count 231 K/uL (130-400); RDW Coefficient of Variation 13.4 % (11.5-14.5); RDW Standard Deviation 44.7 fL (36.4-46.3); Red Blood Count 4.72 M/uL (4.7-6.1); White Blood Count 12.41 K/uL (4.8-10.8)
[2020-01-15 07:51] LABS: BUN Creatinine Ratio 21.3 (10-20); Calcium 8.8 mg/dl (8.5-10.1); Creatinine Clr Calc Pharmacy 118.3 ml/min; Est GFR (African American) 112.7; Est GFR (Non-African American) 97.2; Magnesium 2.1 mg/dl (1.8-2.4); Potassium 4.4 mmol/L (3.5-5.1)
--- NOTE | 2020-01-15 08:21 | Magnetic Resonance Report ---
MRI OF THE THORACIC SPINE COMBO CLINICAL HISTORY: Thoracic back pain. COMPARISON STUDY: Radiographs of the thoracic spine dated 12/30/2014. MRI of the thoracic spine dated 07/28/2015. TECHNIQUE: MRI of the thoracic spine is performed utilizing various T1 and T2-weighted sequences in t he axial and sagittal planes. Contrast-enhanced sequences are acquired following the IV administratio n of 10.8 cc of Gadavist. The examination is degraded by motion artifact. FINDINGS: Vertebral body height and alignment are maintained throughout the thoracic spine. The spino us processes appear intact. Small anterior osteophytes are seen throughout. Small hemangiomas are not ed in the bodies of T2, T7, and T9. No destructive bony lesion is seen. Degenerative disc desiccation and mild loss of height is noted throughout the thoracic spine. Small posterior discussed by complex es are noted at T2-T3, T5-T6, T6-T7, T7-T8. A large posterior disc osteophyte complex eccentric to le ft is seen at T9-T10. This mildly effaces the left ventral aspect of the thecal sac. The central carie l is otherwise clear. The thoracic spinal cord is normal in morphology and signal intensity. The conu s medullaris terminates at the level of L1. There is no evidence of high-grade neural foraminal steno sis throughout the thoracic spine. No enhancing lesion is suggested on the postcontrast sequences. Th e paraspinous soft tissues are within normal limits. The lung parenchyma is grossly unremarkable but not well evaluated by MRI. IMPRESSION: 1. No osseous abnormality is identified. 2. Mild degenerative change as above. There is no high-grade central canal stenosis. 3. No enhancing lesion is suggested on the postcontrast sequences. Dictated: 01/15/2020 7:50 AM Transcribed: 01/15/2020 8:16 AM Sherry [id number] KEENA_Saloni Electronically signed by: Krystian Dc M.D. 01/15/2020 8:19 AM
[2020-01-15] MEDS ORDERED: VENLAFAXINE HCL XR 150 MG CAPXR PO SCH (09:00)
[2020-01-15] MEDS ORDERED: bisacodyL 10 MG SUPP PR PRN (12:31)
--- NOTE | 2020-01-15 13:05 | Consultation ---
Date of Consultation January 15, 2020 Assessment & Plan (1) Thoracic back pain: Thoracic MRI has normal degenerative changes. No high-grade stenosis or acute disc herniations that would be the source of his pain. I strongly suspect his pain is from his adjacent level disease in his lumbar spine. He is fused L3-S1. Last MRI was April 2019 which showed some mild central stenosis L2-3. Would recommend repeating/updating lumbar MRI without contrast with the focus on the adjacent level. Will most likely make referral back to Dr. Delaney for repeat injections as they have been quite successful and pain management in the past. This information has been relayed to the patient. He is comfortable with this plan. Supervising Physician Co-Signing Physician Notes Dr. Antonio Sosa History of Present Illness Mike is a 49-year-old gentleman well-known to our practice. He presented to the ER last evening with acute on chronic lower back pain. He has had multiple surgeries by Dr. Sosa last being about 5 years ago. He normally takes Advil for daily aches and pains. This has not been controlling his pain over the past week. He reports yesterday he was trying to help his son change oil and his pain significantly increased. He reports over the weekend he has had some right-sided groin Pain is along the lower thoracic region radiating around the anterior rib cage bilaterally. paresthesias as well. Denies bowel bladder changes. Normally pain is controlled with injections from Dr. Delaney. Last injection was May 2019 with great relief. Attending Physician: Cristin Carlos MD Allergies Allergy/AdvReac Type Severity Reaction Status Date / Time prednisone AdvReac Intermediate Pt states Verified 01/14/20 17:49 "I get mean" Home Medications Home Medications Medication Instructions Recorded Confirmed Type venlafaxine 75 mg PO HS 06/14/18 01/14/20 History venlafaxine 150 mg PO QAM 06/14/18 01/14/20 History cyclobenzaprine 0 mg PO .TODAY 01/14/20 01/14/20 History ibuprofen [Advil] 600 mg PO Q8 PRN 01/14/20 01/14/20 History triamcinolone acetonide 1 applic TOPICAL BID PRN 01/14/20 01/14/20 History Patient History Medical History Back pain Renal colic Sore throat Ureteral calculus Surgical History History of lumbar surgery S/P arthroscopic knee surgery Social History Smoking Status: Never smoker Second Hand Exposure: No; Do You Dip or Chew Tobacco: No; Tobacco Cessation Education Requested by Patient: No Hx Alcohol Use: No Hx Substance Use: No Preferred Language: Hebrew Communication Ability: Effective Retail Salesworker Required: No Beliefs That Will Affect Care: None Current Living Situation: Family Other Information That Helps Us Care for You: No Feels Safe at Home: Yes Safety Concerns: Feels Safe At This Time Review of Systems Review of Systems: All systems reviewed & are unremarkable except as noted in HPI & below Physical Exam Physical Exam: Patient is sitting in 383 He is sitting on the edge of the bed eating lunch. He is in no acute distress. Strength is 5 5 bilateral EHL, dorsiflexion, plantarflexion, quadriceps, hamstrings, hip flexors, hip abductor's and hip adductor's. Negative tension signs bilaterally. Negative logrolling bilaterally. Is well-healed midline lumbar incision. Nontender to palpation percussion to the thoracolumbar spine. Nontender over the sciatic notch regions. Constitutional: WD/WN, vitals as above Eyes: PERRL, conjunctivae normal, anicteric sclerae ENMT: external ear and nose normal, oropharynx normal Neck: normal visual inspection Respiratory: normal respiratory effort Cardiovascular: Vessels: normal peripheral pulses and dorsalis pedis pulses present Extremities: normal capillary refill Chest (Breasts): Chest: normal inspection of chest Gastrointestinal (Abdomen): Inspection/Auscultation: abdomen normal to inspection Musculoskeletal: no cyanosis or clubbing, extremities motor strength 5/5 Extremities: extremities normal to inspection and strength 5/5 throughout Skin: no rashes, warm and dry Neurologic: normal touch/pain/proprioception, deep tendon reflexes 2+ bilaterally and moves all extremities Psychiatric: A+Ox3, euthymic affect Results & Data ([facility]) Vital Signs (Past 12 Hours) Vital Signs Temp Pulse Pulse Resp BP Pulse Ox 01/15/20 07:26 36.3 C L 68 16 102/57 L 92 01/15/20 02:00 66 16 92 01/15/20 01:05 36.7 C 76 12 152/84 H 92 Diagnostic Findings [phone] Magnetic Resonance Report Patient: MIKE DOMINIQUE Date: 01/15/20 MR#: [id number] JILLIAN RAMIREZ Acct ID:[id number]: Date: [address] Zip: [place] [address] Age: 49Location: 3N Sex: MRoom[facility]Bed: [facility] Att Phy: Cristin Carlos, MDDiagnosis: SEVERE BACK PAIN Elise Phy: Kan Cunningham, MARIANGELervice Date: 01/14/20 Fam Phy:Interpreting Phy: Krystian Dc MD Admit Phy: Javier Avilez MD Ordering Phy: Anjana Kuo DO cc: ~ MRI OF THE THORACIC SPINE COMBO CLINICAL HISTORY: Thoracic back pain. COMPARISON STUDY: Radiographs of the thoracic spine dated 12/30/2014. MRI of the thoracic spine dated 07/28/2015. TECHNIQUE: MRI of the thoracic spine is performed utilizing various T1 and T2- weighted sequences in the axial and sagittal planes. Contrast-enhanced sequences are acquired following the IV administration of 10.8 cc of Gadavist. The examination is degraded by motion artifact. FINDINGS: Vertebral body height and alignment are maintained throughout the thoracic spine. The spinous processes appear intact. Small anterior osteophytes are seen throughout. Small hemangiomas are noted in the bodies of T2, T7, and T9. No destructive bony lesion is seen. Degenerative disc desiccation and mild loss of height is noted throughout the thoracic spine. Small posterior discussed by complexes are noted at T2-T3, T5-T6, T6-T7, T7-T8. A large posterior disc osteophyte complex eccentric to left is seen at T9-T10. This mildly effaces the left ventral aspect of the thecal sac. The central canal is otherwise clear. The thoracic spinal cord is normal in morphology and signal intensity. The conus medullaris terminates at the level of L1. There is no evidence of high-grade neural foraminal stenosis throughout the thoracic spine. No enhancing lesion is suggested on the postcontrast sequences. The paraspinous soft tissues are within normal limits. The lung parenchyma is grossly unremarkable but not well evaluated by MRI. IMPRESSION: 1. No osseous abnormality is identified. 2. Mild degenerative change as above. There is no high-grade central canal stenosis. 3. No enhancing lesion is suggested on the postcontrast sequences. Dictated: 01/15/2020 7:50 AM Transcribed: 01/15/2020 8:16 AM Sherry [id number] KEENA_Saloni Electronically signed by: Krystian Dc M.D. 01/15/2020 8:19 AM Dictated: 01/15/20 0750 Transcribed: 01/15/20 0816 (1) Thoracic back pain Back pain laterality: bilateral Chronicity: chronic Qualified Code(s): M54.6 - Pain in thoracic spine; G89.29 - Other chronic pain
[2020-01-15] MEDS ORDERED: KETOROLAC TROMETHAMINE 15 MG/ML VIAL IV PRN (15:14)
--- NOTE | 2020-01-15 15:21 | Communication Note ---
Date of Service: January 15, 2020 Patient admitted earlier today Please see day history and physical for details 49-year-old male admitted with intractable back pain pt had Numbers of back surgery done by Dr. Sosa Thoracic lumbar spine shows mild degenerative changes no high-grade central stenosis Patient evaluated by spinal orthopedics Dr. Sosa Lumbar spine MRI shows prior lumbar fusion surgery, no acute fracture or subluxation Patient had steroid injection in the past at lumbar spine which has improved his symptoms significantly Cannot take systemic steroids/p.o. prednisone, due to severe side effect Pain management consulted as patient may benefit spinal steroid injection PT OT eval requested Neck/cervical pain: Reports of severe pain on left side of the neck radiation to back of the scalp and shoulder Worse with movement MRI of lumbar spine shows central canal and narrowing on C6-7 Spinal surgery updated Cristin Carlos MD
--- NOTE | 2020-01-15 16:54 | Magnetic Resonance Report ---
CERVICAL SPINE MRI HISTORY: neck pain TECHNIQUE: Multiplanar multisequence MRI of the cervical spine was performed without the use of contr ast. COMPARISON STUDY: Cervical spine CT 08/26/2017. Cervical spine MRI 07/11/2017. FINDINGS: Straightening of the cervical spine. No fracture or subluxation. Prevertebral soft tissues and the C1-C2 interval are intact. The visualized posterior fossa is unremarkable. The cervical spina l cord demonstrates a normal signal intensity. Small hemangioma at T2 is noted. Mild facet degenerati ve changes within the cervical spine. Mild disc space narrowing at C3-C4 and C5-C6. Moderate disc spa ce narrowing at C4-C5 and C6-C7. C2-C3: No significant central canal or neural foraminal narrowing. C3-C4: Broad-based posterior disc osteophyte complex which abuts and slightly deforms the anterior co rd resulting in mild central canal and mild bilateral neural foraminal narrowing. C4-C5: Broad-based posterior disc osteophyte complex which results in partial effacement of the anter ior thecal sac without significant cord deformity. This is consistent with minimal central canal narr owing. There is mild right and moderate left neural foraminal narrowing. C5-C6: Broad-based posterior disc bulge which abuts but does not significantly deform the anterior co rd consistent with mild central canal narrowing. There is moderate right neural foraminal narrowing d ue to the uncovertebral and facet hypertrophy. C6-C7: Broad-based posterior disc bulge asymmetric to the left resulting in mild central canal narrow ing. There is moderate to severe left and moderate right neural foraminal narrowing. C7-T1: No significant central canal or neural foraminal narrowing. IMPRESSION: 1. Straightening of the cervical spine. No fracture or subluxation. 2. Near diffuse degenerative disc disease resulting in mild central canal narrowing from C3-C4 throug h C6-C7 as described above. 3. Bilateral neural foraminal narrowing as described above most pronounced at the left C6-C7 level. ACT 112: Negative or not required by law. Electronically signed by: Memo Cano M.D. 01/15/2020 4:53 PM
--- NOTE | 2020-01-15 17:28 | Magnetic Resonance Report ---
LUMBAR SPINE MRI HISTORY: back/Right groin pain; hx multiple back surgeries TECHNIQUE: Multiplanar multisequence MRI of the lumbar spine was performed without the use of contras t. COMPARISON: Lumbar spine MRI 04/27/2019. FINDINGS: Straightening of the lumbar spine. Paraspinal tissues are within normal limits. Mild likely postsurgical edema of the deep subcutaneous tissues of the lower lumbar spine. No acute fracture, lewis bluxation or significant focal bone marrow edema. Posterior interbody lance and screw fusion at L3-S1. There are laminectomy changes noted at L4-S1. Artifact from the hardware limits evaluation of the adj acent tissues. Conus medullaris terminates at the L1 level. Signal within the imaged thoracic spinal cord appears normal. Cauda equina are within normal limits. T12-L1: Moderate facet arthrosis. No central canal or foraminal narrowing. Unchanged. L1-L2: Moderate disc space narrowing with spondylitic spurring, circumferential annular disc bulge w ith ligamentum flavum thickening and moderate facet arthrosis. Central annular fissure with small timur tral disc extrusion demonstrating mild superior subligamentous migration. This has slightly increased in size. Findings cause mild central canal stenosis with mild bilateral lateral recess narrowing. Mi ld right foraminal narrowing. Left foramen is patent. L2-L3: Moderate disc space narrowing with spondylitic spurring, circumferential annular disc bulge, ligamentum flavum thickening and severe facet arthrosis. Findings result in mild to moderate central canal stenosis with moderate narrowing of the bilateral lateral recesses. There is mild to moderate b ilateral foraminal narrowing. This remains unchanged. L3-L4: Moderate disc space narrowing with ligamentum flavum thickening and moderate facet arthrosis. No central canal or foraminal narrowing. Unchanged. L4-L5: Discectomy changes at this interspace along with facet arthrosis. Mild right neuroforaminal s tenosis. Mild left foraminal disc bulge which results in left-sided neural foraminal narrowing and li brain abuts the exiting left L4 nerve root. No significant central canal stenosis. Unchanged. L5-S1: Mild spondylitic spurring and facet arthrosis. Heterogeneity with decreased T1 and T2 signal of the left lateral recess and left neuroforamen may be on a postsurgical basis. Facet arthrosis at t his interspace is noted. Central canal and right neuroforamen appear patent. There is suggestion of m ild left lateral recess and mild left foraminal narrowing. Findings appear unchanged from comparison. IMPRESSION: 1. No acute fracture, subluxation or bone marrow edema. 2. Posterior interbody lance and screw fusion redemonstrated at L3-S1. 3. Slight increase in size in a small focal central disc extrusion at L1-L2. 4. Mild to moderate central canal stenosis at L2-L3. 5. Additional findings as described above. ACT 112: Negative or not required by law. Electronically signed by: Memo Cano M.D. 01/15/2020 5:27 PM
--- NOTE | 2020-01-15 19:42 | Communication Note ---
Date of Service: January 15, 2020 pt revisited again , as he reports significant improvement of back pain able to walk to bathroom independently walking on hallway with no discomfort pain is controlled with PO pain meds requests to be discharged home today will follow up with Dr Delaney in clinic for spinal steroid injection pts present at bedside agrees with the plan pt is discharged home today Cristin Carlos MD
--- NOTE | 2020-01-15 19:48 | Discharge Summary ---
Date of Service January 15, 2020 Admission HPI Per Admitting Provider DICTATED BY: Javier Avilez MD DATE OF ADMISSION: 01/15/2020 CHIEF COMPLAINT: Severe intractable back pain. HISTORY OF PRESENT ILLNESS: A 49-year-old male with past medical history significant for hyperlipidemia, obstructive sleep apnea, on CPAP; chronic rhinitis, hemorrhoids, history of back surgeries x4, cervical disc disorder with radiculopathy, adjustment disorder with depression, presents with severe back pain. The patient says the pain started last , but yesterday when he tried to bend down to help his son who was changing the oil in the car, the pain became very severe. It made him short of breath and since then the pain was intractable, so he came to the ER. Received Decadron, multiple doses of Dilaudid, Toradol, Valium and still requiring pain medication, so we were called for admission. MRI scan of the thoracic spine was done in the ER which showed multiple level small thoracic spine disc bulges and right C5-C6 and left T4-T5 moderate foraminal stenosis. The patient's pain is in the upper back and thoracic spine and neck region. He is feeling hot, but denies any fever or chills, has headache, no blurred vision, no earache, no runny nose, no sore throat, no cough. No dysphagia, no chest pain, no shortness of breath, no nausea, no abdominal pain. Normal bowel and bladder movements. No swelling in the legs. No rash. Ambulating okay. Principal Diagnosis BACK PAIN Discharge Exam Constitutional WD/WN, vitals as above Eyes PERRL, conjunctivae normal, anicteric sclerae ENMT external ear and nose normal, oropharynx normal Neck trachea midline, no thyromegaly Respiratory normal respiratory effort, lungs clear to auscultation Cardiovascular RRR, no murmur, no edema Gastrointestinal (Abdomen) normal bowel sounds, soft, nontender, no hepatosplenomegaly Musculoskeletal no cyanosis or clubbing, extremities motor strength 5/5 Skin no rashes, warm and dry Neurologic PERRL, EOMI, accommodation nl, no face palsy, no dysarthria Psychiatric A+Ox3, euthymic affect Discharge Data Allergies Allergy/AdvReac Type Severity Reaction Status Date / Time prednisone AdvReac Intermediate Pt states Verified 08/24/20 17:49 "I get mean" Consultations 01/15/20 01:13 Consult Case Management - Discharge Planning Routine 01/15/20 12:29 Consult Orthopedic Surgery Routine 01/15/20 15:19 Consult Pain Management Routine Ordered Studies 01/14/20 19:16 MR thoracic spine wo/w con Urgent 01/15/20 13:01 MR lumbar spine wo con Routine 01/15/20 15:19 MR cervical spine wo con Routine Hospital Course (1) Back pain: Date of Service: January 15, 2020 Patient admitted earlier today Please see day history and physical for details 49-year-old male admitted with intractable back pain pt had Numbers of back surgery done by Dr. Sosa Thoracic lumbar spine shows mild degenerative changes no high-grade central stenosis Patient evaluated by spinal orthopedics Dr. Sosa Lumbar spine MRI shows prior lumbar fusion surgery, no acute fracture or subluxation Patient had steroid injection in the past at lumbar spine which has improved his symptoms significantly Cannot take systemic steroids/p.o. prednisone, due to severe side effect Pain management consulted as patient may benefit spinal steroid injection PT OT eval requested Neck/cervical pain: Reports of severe pain on left side of the neck radiation to back of the scalp and shoulder Worse with movement MRI of lumbar spine shows central canal and narrowing on C6-7 Spinal surgery updated Date of Service: January 15, 2020 pt revisited again , as he reports significant improvement of back pain able to walk to bathroom independently walking on hallway with no discomfort pain is controlled with PO pain meds requests to be discharged home today will follow up with Dr Delaney in clinic for spinal steroid injection pts present at bedside agrees with the plan pt is discharged home today Cristin Carlos MD Total Time Total Time Spent Total Time Spent (In Minutes): 30 mins Total Time Includes: Discharge Planning, Medication Reconciliation and Communication With Other Providers Discharge Plan Discharge Items Patient Disposition: Home - Self-Care Reason For Visit: SEVERE BACK PAIN Discharge Diagnosis: BACK PAIN -IMPROVED Activity: As commented below Activity Comment: TOLERATED Non-emergency contact: Primary Care Provider Call non-emergency contact if: you have any medication questions Follow-up/Referrals: Antonio Sosa DO [Surgeon] - (IN 1-2 WEEKS , PLEASE CALL OFFICE FOR APPOINTMENT ) Kan Cunningham MD [Primary Care Provider] - Diet: Regular Addtl Attending Provider Instructions: FOLLOW UP WITH PAIN MANAGEMENT DR DELANEY FOR SPINAL STEROID INJECTION CAN USE HEATING PAD NEEDED FOR NECK PAIN FOLLOW UP WITH Dr Sosa [facility] follow up with family physician in a week , please call to schedule appointment Pending Studies at Discharge: No Stand-Alone Forms: My [facility], Smoking Cessation Medications and DC Order Prescriptions: New oxycodone 5 mg Tablet 5 mg PO Q6 PRN (Reason: pain) Qty: 10 RF: 0 Continued venlafaxine 75 mg Tablet Extended Release 24hr 75 mg PO HS RF: 0 venlafaxine 75 mg Tablet Extended Release 24hr 150 mg PO QAM RF: 0 triamcinolone acetonide 0.1 % cream 1 applic TOPICAL BID PRN (Reason: BREAKOUTS) RF: 0 cyclobenzaprine 5 mg Tablet 0 mg PO .TODAY RF: 0 ibuprofen [Advil] 200 mg Tablet 600 mg PO Q8 PRN (Reason: Pain) Qty: 0 RF: 0 Discharge Orders: Discharge Order (Routine); Ordered 01/15/20 Ordered By: Cristin Carlos Admission Data Admit Date/Time: 01/15/20 15:20 Attending Provider: Cristin Carlos Admit Provider: Javier Avilez Primary Care Provider: Kan Cunningham Other Providers: Antonio Sosa Jennifer L
[2020-01-15] MEDS ORDERED: OXYCODONE IR HOME PACK PO SCH ×2 (20:00)
[2020-01-15] MEDS ORDERED: VENLAFAXINE HCL XR 75 MG CAPXR PO SCH (21:00)
[2020-01-15] MEDS ORDERED: DOCUSATE SODIUM 100 MG CAP PO SCH (21:00)
[2020-01-16] MEDS ORDERED: POLYETHYLENE (MIRALAX) 17 GM PACK PO SCH (09:00)
== END 2020-01-15 20:57 | disposition home or self-care (01) | DRG 552 ==
LOC: 3N 17:11 → ED 17:11 → SUATTDRO 01-15 00:26 → 3N 01-15 00:58

== ENCOUNTER 2024-12-05 01:13 | Inpatient (IN) ==
[2024-12-05] MEDS: KETOROLAC 30 MG/ML VIAL IV ONE (01:46)
--- NOTE | 2024-12-05 01:50 | Emergency Department Note ---
Impression & Plan Left-sided chest pain, Acute pain of left shoulder admitted to the [facility] ED Provider Note NAME: JUAN PABLO DOMINIQUE AGE: 54 SEX: Male INFORMANT: Patient ED PROVIDER(S): Kelly Mathias DO CHIEF COMPLAINT: left-sided chest pain and left shoulder pain PLAN: Disposition: Admit to the [facility] MEDICAL DECISION MAKING: This is a 54-year-old male patient who presents to the emergency department with significant left-sided chest pain and left shoulder pain. Patient states that around 6 PM this evening he developed severe left shoulder pain for which he took 4 Advil but got no improvement. Throughout the evening he developed significant nausea and moderate diaphoresis. He then developed sharp left- sided chest pain around 11:30 PM for which he took aspirin. symptoms persisted and his brought him here to the emergency department. She notes that the patient has been increasingly short of breath for the past 1 month. He has been evaluated by his PCP for this and is scheduled for outpatient stress testing on January 01. Patient was given a dose of IV Toradol for the left shoulder pain with no relief of his symptoms. He was given sublingual nitro which took his left shoulder pain/chest pain from a 6/10 down to a 2/10. Laboratory studies revealed no leukocytosis or anemia. The patient was hypoglycemic with a blood sugar of 67. He was given something to drink which brought his blood sugar up to 114. Troponin was normal at 3.7. D-dimer was negative. Renal function was normal. I discussed the case with the [facility] and they will evaluate for further inpatient care. Care/management discussed with: The patient's was at the bedside and the [facility] Triage Nursing notes: reviewed and agree with them. Vital Signs: reviewed and unremarkable Additional History obtained from: patient's who is at the bedside Differential Diagnosis: PE, cardiac ischemia, aortic dissection, STEMI, NSTEMI Diagnostics, independently interpreted by me: ECG: Normal sinus rhythm at a rate of [address] segment elevation or signs of ischemia. There is no ectopy. Cardiac Monitoring: Normal sinus rhythm at a rate of 72 Imaging studies: portable chest x-ray: As per [facility] HPI: 54 year old Male arrives for evaluation of left-sided chest pain and left shoulder pain. presents to the emergency department with significant left-sided chest pain and left shoulder pain. Patient states that around 6 PM this evening he developed severe left shoulder pain for which he took 4 Advil but got no improvement. Throughout the evening he developed significant nausea and moderate diaphoresis. He then developed sharp left-sided chest pain around 11:30 PM for which he took aspirin. PAST MEDICAL HISTORY: See Below, PAST SURGICAL HISTORY: See Below, SOCIAL HISTORY: See Below, HOME MEDICATIONS: See list ALLERGIES: see list VITALS: See Below PHYSICAL EXAMINATION: HEENT: Head - normocephalic and atraumatic. Pupils are equal, round, and reactive to light. Extraocular eye muscles are intact, and sclera are anicteric. Nose - moist nasal mucosa without discharge. Mouth - moist buccal mucosa. Oropharynx is nonerythematous and there is no tonsillar exudate or edema noted. Neck: Supple; no JVD, nuchal rigidity, cervical lymphadenopathy, or auscultated bruits. Heart: Regular rate and rhythm. There is a normal S1 and S2 with no murmurs, clicks, or gallops appreciated. Lungs: Clear to auscultation bilaterally with no wheezes, rales, or rhonchi. Abdomen: Soft, completely nontender, nondistended, with good bowel sounds. There are no palpable pulsatile masses or hepatosplenomegaly. There is no guarding, rigidity, or rebound noted. Extremities: No evidence of cyanosis, clubbing, or edema. There are easily palpable peripheral pulses. Skin: warm and dry with good turgor and no rashes. Emergency Department treatment: playground monitor, IV Toradol, sublingual nitro Emergency Department course: The patient was evaluated in room C-6. A complete history and physical was performed. An order was placed for continuous cardiac monitoring. The patient was in a normal sinus rhythm at a rate of 72. A twelve-lead EKG was obtained as described above. Patient was given a dose of IV Toradol. Portable chest x-ray was performed. Upon repeat assessment, the patient was asleep. Upon awakening, patient states he got no relief from the above IV Toradol. He was given sublingual nitro. This did decrease his chest discomfort. Past Med/Surg History Problem List (Updated 12/05/24 @ 06:39 by Kelly Mathias DO) Acute pain of left shoulder (Acute) Left-sided chest pain (Acute) Chest pain Nocturnal hypoxemia Severe obstructive sleep apnea Bulging discs (Acute) Intractable back pain (Acute) COVID-19 (Acute) Thoracic back pain (Acute) Surgical History History of lumbar surgery S/P arthroscopic knee surgery Social History Smoking Status: Never smoker Second Hand Exposure: No; Do You Dip or Chew Tobacco: No; Hx Alcohol Use: Yes Alcohol type: beer Hx Substance Use: No Preferred Language: Estonian Communication Ability: Effective Oil 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 Operator Required: No Beliefs That Will Affect Care: None Current Living Situation: Spouse Other Information That Helps Us Care for You: No Feels Safe at Home: Yes Safety Concerns: Feels Safe At This Time Assistive Devices: CPAP Allergies Allergies Allergy/AdvReac Type Severity Reaction Status Date / Time prednisone AdvReac Intermediate Pt states Verified 09/04/24 13:57 "I get mean", AGGRESSIVE Home Meds Home Medications Medication Instructions Recorded Confirmed rosuvastatin 20 mg tablet 20 mg PO DAILY 12/05/24 12/05/24 venlafaxine 75 mg tablet 75 mg PO HS 12/05/24 12/05/24 venlafaxine 75 mg tablet 150 mg PO QAM 12/05/24 12/05/24 Results & Data (ED) Vital Signs Vital Signs - 24 hr 12/05/24 01:15 12/05/24 01:23 12/05/24 01:27 Pulse Rate 78 78 82 Pulse Rate from SpO2 Sensor Respiratory Rate 20 21 Respiratory Effort / Characteristics Non-Labored Spontaneous Respiratory Depth Normal Blood Pressure 174/91 H Blood Pressure Mean 118 Pulse Oximetry 93 Oxygen Delivery Method Room Air Sepsis Recent Fever Within 48 Hours No Sepsis New/Unexplained Change in Mental Status No Sepsis Action Taken by Nursing No Action Required 12/05/24 01:31 12/05/24 01:40 12/05/24 02:00 Pulse Rate 73 Pulse Rate from SpO2 Sensor 71 Respiratory Rate 20 Respiratory Effort / Characteristics Respiratory Depth Blood Pressure 151/87 H Blood Pressure Mean 95 Pulse Oximetry 97 92 Oxygen Delivery Method Room Air Sepsis Recent Fever Within 48 Hours Sepsis New/Unexplained Change in Mental Status Sepsis Action Taken by Nursing 12/05/24 02:15 12/05/24 02:33 12/05/24 02:51 Pulse Rate 72 74 72 Pulse Rate from SpO2 Sensor 72 74 73 Respiratory Rate 18 16 17 Respiratory Effort / Characteristics Respiratory Depth Blood Pressure Blood Pressure Mean Pulse Oximetry 91 91 91 Oxygen Delivery Method Sepsis Recent Fever Within 48 Hours Sepsis New/Unexplained Change in Mental Status Sepsis Action Taken by Nursing 12/05/24 03:00 12/05/24 03:21 12/05/24 03:33 Pulse Rate 70 72 74 Pulse Rate from SpO2 Sensor 70 71 73 Respiratory Rate 15 14 16 Respiratory Effort / Characteristics Respiratory Depth Blood Pressure Blood Pressure Mean Pulse Oximetry 92 92 92 Oxygen Delivery Method Sepsis Recent Fever Within 48 Hours Sepsis New/Unexplained Change in Mental Status Sepsis Action Taken by Nursing 12/05/24 03:45 12/05/24 04:03 12/05/24 04:03 Pulse Rate 76 76 Pulse Rate from SpO2 Sensor 76 73 Respiratory Rate 19 14 Respiratory Effort / Characteristics Respiratory Depth Blood Pressure 94/60 L Blood Pressure Mean 70 Pulse Oximetry 93 90 Oxygen Delivery Method Sepsis Recent Fever Within 48 Hours Sepsis New/Unexplained Change in Mental Status Sepsis Action Taken by Nursing 12/05/24 04:03 12/05/24 04:06 12/05/24 04:13 Pulse Rate 75 Pulse Rate from SpO2 Sensor 74 Respiratory Rate 17 Respiratory Effort / Characteristics Respiratory Depth Blood Pressure 94/60 L 124/79 Blood Pressure Mean 70 89 Pulse Oximetry 90 Oxygen Delivery Method Sepsis Recent Fever Within 48 Hours Sepsis New/Unexplained Change in Mental Status Sepsis Action Taken by Nursing 12/05/24 04:27 12/05/24 04:30 12/05/24 04:36 Pulse Rate 73 70 Pulse Rate from SpO2 Sensor 73 72 Respiratory Rate 12 15 Respiratory Effort / Characteristics Respiratory Depth Blood Pressure 127/77 Blood Pressure Mean 88 Pulse Oximetry 91 91 Oxygen Delivery Method Sepsis Recent Fever Within 48 Hours Sepsis New/Unexplained Change in Mental Status Sepsis Action Taken by Nursing 12/05/24 04:51 Pulse Rate 72 Pulse Rate from SpO2 Sensor 72 Respiratory Rate 17 Respiratory Effort / Characteristics Respiratory Depth Blood Pressure Blood Pressure Mean Pulse Oximetry 91 Oxygen Delivery Method Sepsis Recent Fever Within 48 Hours Sepsis New/Unexplained Change in Mental Status Sepsis Action Taken by Nursing Laboratory Data 12/05/24 01:25 12/05/24 02:38 Lab Results 12/05/24 12/05/24 12/05/24 Range/Units 01:25 02:38 03:50 WBC 8.62 (4.8-10.8) K/ul RBC 4.81 (4.70-6.10) M/uL Hgb 14.5 (14.0-18.0) g/dl Hct 42.8 (42.0-52.0) % MCV 89.0 (80.0-100.0) fL MCH 30.1 (25.0-34.0) pg MCHC 33.9 (32.0-36.0) g/dL RDW Std Deviation 43.2 (36.4-46.3) fL RDW Coeff of Elizabeth 13.2 (11.5-14.5) % Plt Count 223 (130-400) K/uL MPV 11.5 (9.4-12.4) fL Immature Gran % (Auto) 0.2 % Neut % (Auto) 40.7 % Lymph % (Auto) 43.5 % [place] % (Auto) 9.6 % Eos % (Auto) 5.2 % Baso % (Auto) 0.8 % Neut # (Auto) 3.50 (1.40-6.50) K/uL Lymph # (Auto) 3.75 H (1.20-3.40) K/uL [place] # (Auto) 0.83 H (0.11-0.59) K/uL Eos # (Auto) 0.45 (0.00-0.50) K/uL Baso # (Auto) 0.07 (0.00-0.20) K/uL Immature Gran # (Auto) 0.02 (0.01-0.20) K/uL RBC Morphology Unremarkable APTT 28 (21-31) Seconds PTT Ratio 1.0 D-Dimer 340 (0-500) ug/L FEU Sodium TNP 139 Potassium TNP 3.7 Chloride 104 (98-107) mmol/L Carbon Dioxide 28 (21-32) mmol/L Anion Gap TNP BUN 17 (6-23) mg/dl Creatinine 0.92 (0.6-1.4) mg/dl Est Cr Clr Drug Dosing 114.7 ml/min eGFR 97.63 BUN/Creatinine Ratio 18.5 (10-20) Glucose 67 L (70-99(Fasting)) mg/dl POC Glucose (70-99) mg/dl Calcium 9.1 (8.6-10.3) mg/dl Total Bilirubin 0.3 (0.2-1.0) mg/dl AST TNP 20 ALT 22 (7-52) U/L Alkaline Phosphatase 61 (34-104) U/L Troponin I High Sens 3.7 (0-20) pg/ml Total Protein 8.1 (6.0-8.3) gm/dl Albumin 4.2 (3.4-5.0) gm/dl Globulin 3.9 (2.5-4.0) gm/dl Albumin/Globulin Ratio 1.1 (0.9-2) Lipase 71 (11-82) U/L 12/05/24 Range/Units 03:52 WBC (4.8-10.8) K/ul RBC (4.70-6.10) M/uL Hgb (14.0-18.0) g/dl Hct (42.0-52.0) % MCV (80.0-100.0) fL MCH (25.0-34.0) pg MCHC (32.0-36.0) g/dL RDW Std Deviation (36.4-46.3) fL RDW Coeff of Elizabeth (11.5-14.5) % Plt Count (130-400) K/uL MPV (9.4-12.4) fL Immature Gran % (Auto) % Neut % (Auto) % Lymph % (Auto) % [place] % (Auto) % Eos % (Auto) % Baso % (Auto) % Neut # (Auto) (1.40-6.50) K/uL Lymph # (Auto) (1.20-3.40) K/uL [place] # (Auto) (0.11-0.59) K/uL Eos # (Auto) (0.00-0.50) K/uL Baso # (Auto) (0.00-0.20) K/uL Immature Gran # (Auto) (0.01-0.20) K/uL RBC Morphology APTT (21-31) Seconds PTT Ratio D-Dimer (0-500) ug/L FEU Sodium Potassium Chloride (98-107) mmol/L Carbon Dioxide (21-32) mmol/L Anion Gap BUN (6-23) mg/dl Creatinine (0.6-1.4) mg/dl Est Cr Clr Drug Dosing ml/min eGFR BUN/Creatinine Ratio (10-20) Glucose (70-99(Fasting)) mg/dl POC Glucose 114 H (70-99) mg/dl Calcium (8.6-10.3) mg/dl Total Bilirubin (0.2-1.0) mg/dl AST ALT (7-52) U/L Alkaline Phosphatase (34-104) U/L Troponin I High Sens (0-20) pg/ml Total Protein (6.0-8.3) gm/dl Albumin (3.4-5.0) gm/dl Globulin (2.5-4.0) gm/dl Albumin/Globulin Ratio (0.9-2) Lipase (11-82) U/L Administered Medications Sodium Chloride (Nss) 1,000 mls @ 50 mls/hr IV .Q20H ONE Stop: 12/06/24 01:22 Last Admin: 12/05/24 06:04 Dose: 50 mls/hr Documented By: NRS Discontinued Medications Ketorolac Tromethamine (Ketorolac 30 Mg/Ml Vial) 30 mg IV NOW ONE Stop: 12/05/24 01:38 Last Admin: 12/05/24 01:46 Dose: 30 mg Documented By: YENI Nitroglycerin (Nitroglycerin Sl 0.4 Mg/Tab Tab) Confirm Administered Dose 0.4 mg .ROUTE .STK-MED ONE Stop: 12/05/24 03:55 Last Admin: 12/05/24 03:58 Dose: Not Given Documented By: YENI Nitroglycerin (Nitroglycerin Sl 0.4 Mg/Tab Tab) Confirm Administered Dose 0.4 mg .ROUTE .STK-MED ONE Stop: 12/05/24 03:57 Last Admin: 12/05/24 03:58 Dose: Not Given Documented By: YENI Nitroglycerin (Nitroglycerin Sl 0.4 Mg/Tab Tab) 0.4 mg SL NOW STA Stop: 12/05/24 03:58 Last Admin: 12/05/24 03:58 Dose: 0.4 mg Documented By: YENI Imaging Data Radiologist's Impression: Chest X-Ray 12/05/24 01:37 EXAM: XR chest 1V portable CLINICAL HISTORY: Chest pain, nonspecific TECHNIQUE: An X-ray image of the chest is obtained in AP projection. COMPARISON: 09/25/2020 FINDINGS: Pulmonary Parenchyma: Lungs are clear bilaterally. No evidence of consolidation, collapse, or focal opacities. No pulmonary nodules are identified. No evidence of pleural effusion or pleural thickening on the right. There is blunting of the left costophrenic angle. Minor fissure is thickened on the right. Heart and Mediastinum: Heart size is increased. No mediastinal widening or masses. No hilar or mediastinal lymphadenopathy. Bony Thorax: Bony thorax appears intact without fractures or deformities. Soft Tissues: Soft tissues overlying the chest wall are unremarkable. IMPRESSION: 1. Blunting of the left costophrenic angle, which might be mild effusion and/or secondary to adhesion. Interval new. 2. Cardiomegaly. Electronically signed by Rj Billingsley 12-05-2024 03:01 AM Discharge Plan Visit Data Chief Complaint: Cardiac Assessment Stated Complaint: CHEST PAIN,LEFT SHOULDER PAIN,NAUSEA ED Provider: Kelly Mathias Discharge Problem: Left-sided chest pain, Acute pain of left shoulder Patient Disposition: Admitted As Inpatient Condition: Serious Discharge Instructions Interventions: ED Discharge Assessment Last Done: 12/05/24 05:34
[2024-12-05 02:01] LABS: Hematocrit (blood only) 42.8 % (42.0-52.0); Hemoglobin 14.5 g/dl (14.0-18.0); Mean Corpuscular Hemoglobin 30.1 pg (25.0-34.0); Mean Corpuscular Volume 89.0 fL (80.0-100.0); Platelet Count 223 K/uL (130-400); RDW Standard Deviation 43.2 fL (36.4-46.3); Red Blood Count 4.81 M/uL (4.70-6.10); White Blood Count 8.62 K/ul (4.8-10.8)
[2024-12-05 02:33] LABS: Immature Granulocytes # (auto) 0.02 K/uL (0.01-0.20); Immature Granulocytes % (auto) 0.2 %; RBC Morphology Unremarkable
[2024-12-05 02:34] LABS: Alanine Aminotransferase 22 U/L (7-52); Albumin Globulin Ratio 1.1 (0.9-2); Alkaline Phosphatase 61 U/L (34-104); Bilirubin,Total 0.3 mg/dl (0.2-1.0); Blood Urea Nitrogen 17 mg/dl (6-23); Calcium 9.1 mg/dl (8.6-10.3); Carbon Dioxide 28 mmol/L (21-32); Chloride 104 mmol/L (98-107); Creatinine Clr Calc Pharmacy 114.7 ml/min; Globulin 3.9 gm/dl (2.5-4.0); Glucose 67 mg/dl (70-99(Fasting)); Lipase 71 U/L (11-82); Total Protein 8.1 gm/dl (6.0-8.3)
--- NOTE | 2024-12-05 03:01 | XRay Report ---
EXAM: XR chest 1V portable CLINICAL HISTORY: Chest pain, nonspecific TECHNIQUE: An X-ray image of the chest is obtained in AP projection. COMPARISON: 09/25/2020 FINDINGS: Pulmonary Parenchyma: Lungs are clear bilaterally. No evidence of consolidation, collapse, or focal opacities. No pulmonary nodules are identified. No evidence of pleural effusion or pleural thickening on the right. There is blunting of the left costophrenic angle. Minor fissure is thickened on the right. Heart and Mediastinum: Heart size is increased. No mediastinal widening or masses. No hilar or mediastinal lymphadenopathy. Bony Thorax: Bony thorax appears intact without fractures or deformities. Soft Tissues: Soft tissues overlying the chest wall are unremarkable. IMPRESSION: 1. Blunting of the left costophrenic angle, which might be mild effusion and/or secondary to adhesion. Interval new. 2. Cardiomegaly. Electronically signed by Rj Billingsley 12-05-2024 03:01 AM
[2024-12-05 03:14] LABS: Potassium 3.7 mmol/L (3.5-5.1); Sodium 139.0 mmol/L (136-145)
[2024-12-05] MEDS: NITROGLYCERIN SL 0.4 MG/TAB TAB SL STA (03:58)
[2024-12-05] MEDS: NITROGLYCERIN SL 0.4 MG/TAB TAB ONE ×2 (03:58)
--- NOTE | 2024-12-05 04:53 | History & Physical Report ---
Date of Service December 05, 2024 Assessment & Plan (1) Chest pain: Plan: Assessment and plan below following discussion of case with ED provider and reviewing patient history/pertinent normal/abnormal diagnostic test results. Chest pain relieved by nitroglycerin Rule out ACS Situational hypertension Possible chronic BP elevation given cardiomegaly on CXR hyperlipidemia on statin Rx KELLEE on CPAP Hyperglycemia rule out DM OBS Admit to PCU Continue aspirin for CAD prevention until ACS ruled out Follow BP, initiate lisinopril if with persistent BP elevation Follow troponin Stress echo in a.m. if second troponin within normal limits Check hemoglobin A1c DVT prophylaxis. Lovenox subcu Full code Text document was generated using [employer]aris voice recognition software. It may contain grammatical or spelling errors. Kindly contact undersigned for clarification of any documentation item in question. History of Present Illness Chief Complaint: Chest pain Primary Care Provider: Kan Cunningham MD History obtained from patient and records. Medical history significant for hyperlipidemia, KELLEE on CPAP, mood disorder. Last confinement December 2019 for intractable back pain. Patient with exertional SOB symptoms last month last month during a family trip to [place]. No chest pain, no fluid retention. Compliant with CPAP. Patient seen at PCPs office last week. Outpatient stress test contemplated. Patient experience achy left shoulder pain while painting a door yesterday. He later developed sharp left-sided chest pain with SOB. No cough symptoms. Patient given aspirin at home by . SBP 170s upon arrival at the ER. Chest pain relieved by nitroglycerin administration at the ER. Patient currently comfortable. Medical History as above Surgical History : Urologic procedure, back surgery, knee surgery, umbilical hernia repair Family History : DM, colon cancer; negative heart disease Personal/Social history : Non-smoker, occasional EtOH intake, disabled Allergies Allergy/AdvReac Type Severity Reaction Status Date / Time prednisone AdvReac Intermediate Pt states Verified 09/04/24 13:57 "I get mean", AGGRESSIVE Home Medications Medication Instructions Recorded Confirmed Type rosuvastatin 20 mg tablet 20 mg PO DAILY 12/05/24 12/05/24 History venlafaxine 75 mg tablet 75 mg PO HS 12/05/24 12/05/24 History venlafaxine 75 mg tablet 150 mg PO QAM 12/05/24 12/05/24 History Past Med/Surg History Problem List (Updated 07/16/25 @ 06:39 by Kelly Mathias DO) Acute pain of left shoulder (Acute) Left-sided chest pain (Acute) Chest pain Nocturnal hypoxemia Severe obstructive sleep apnea Bulging discs (Acute) Intractable back pain (Acute) COVID-19 (Acute) Thoracic back pain (Acute) Surgical History History of lumbar surgery S/P arthroscopic knee surgery Social History Smoking Status: Never smoker Second Hand Exposure: No; Do You Dip or Chew Tobacco: No; Hx Alcohol Use: Yes Alcohol type: beer Hx Substance Use: No Preferred Language: South Sudanese Communication Ability: Effective Risk Management Analyst Required: No Beliefs That Will Affect Care: None Current Living Situation: Spouse Other Information That Helps Us Care for You: No Feels Safe at Home: Yes Safety Concerns: Feels Safe At This Time Assistive Devices: CPAP Review of Systems Review of Systems: As per HPI, all other systems reviewed and negative Physical Exam Physical Exam: GENERAL: Comfortable, pleasant, obese, no respiratory distress SKIN: Normal color, warm HEENT: Partial alopecia, pink palpebral conjunctivae, no ptosis, moist buccal mucosa NECK : Supple, no tenderness CHEST : CTA, no tenderness HEART : RRR, no obvious murmurs ABDOMEN: Some distention, nontender EXTREMITIES : No LE swelling/tenderness, palpable pulses, no other conspicuous deformities noted NEUROLOGIC : Coherent, no facial asymmetry, no other gross focality Results & Data Results & Data Vital Signs (Past 12 Hours) Vital Signs Pulse Resp BP Pulse Ox O2 Del Method 12/05/24 02:15 72 18 91 12/05/24 02:00 73 20 92 12/05/24 01:40 97 Room Air 12/05/24 01:31 151/87 H 12/05/24 01:27 82 21 12/05/24 01:23 78 12/05/24 01:15 78 20 174/91 H 93 Room Air Laboratory Results Laboratory Results WBC 8.62 K/ul (4.8-10.8) 12/05/24 01:25 RBC 4.81 M/uL (4.70-6.10) 12/05/24 01:25 Hgb 14.5 g/dl (14.0-18.0) 12/05/24 01:25 Hct 42.8 % (42.0-52.0) 12/05/24 01:25 MCV 89.0 fL (80.0-100.0) 12/05/24 01:25 MCH 30.1 pg (25.0-34.0) 12/05/24 01:25 MCHC 33.9 g/dL (32.0-36.0) 12/05/24 01:25 RDW Std Deviation 43.2 fL (36.4-46.3) 12/05/24 01:25 RDW Coeff of Elizabeth 13.2 % (11.5-14.5) 12/05/24 01:25 Plt Count 223 K/uL (130-400) 12/05/24 01:25 MPV 11.5 fL (9.4-12.4) 12/05/24 01:25 Immature Gran % (Auto) 0.2 % 12/05/24 01:25 Neut % (Auto) 40.7 % 12/05/24 01:25 Lymph % (Auto) 43.5 % 12/05/24 01:25 [place] % (Auto) 9.6 % 12/05/24 01:25 Eos % (Auto) 5.2 % 12/05/24 01:25 Baso % (Auto) 0.8 % 12/05/24 01:25 Neut # (Auto) 3.50 K/uL (1.40-6.50) 12/05/24 01:25 Lymph # (Auto) 3.75 K/uL (1.20-3.40) H 12/05/24 01:25 [place] # (Auto) 0.83 K/uL (0.11-0.59) H 12/05/24 01:25 Eos # (Auto) 0.45 K/uL (0.00-0.50) 12/05/24 01:25 Baso # (Auto) 0.07 K/uL (0.00-0.20) 12/05/24 01:25 Immature Gran # (Auto) 0.02 K/uL (0.01-0.20) 12/05/24 01:25 RBC Morphology Unremarkable 12/05/24 01:25 D-Dimer 340 ug/L FEU (0-500) 12/05/24 03:50 Sodium 139 mmol/L (136-145) 12/05/24 02:38 Potassium 3.7 mmol/L (3.5-5.1) 12/05/24 02:38 Chloride 104 mmol/L (98-107) 12/05/24 01:25 Carbon Dioxide 28 mmol/L (21-32) 12/05/24 01:25 Anion Gap TNP 12/05/24 01:25 BUN 17 mg/dl (6-23) 12/05/24 01:25 Creatinine 0.92 mg/dl (0.6-1.4) 12/05/24 01:25 Est Cr Clr Drug Dosing 114.7 ml/min 12/05/24 01:25 eGFR 97.63 12/05/24 01:25 BUN/Creatinine Ratio 18.5 (10-20) 12/05/24 01:25 Glucose 67 mg/dl (70-99(Fasting)) L 12/05/24 01:25 POC Glucose 114 mg/dl (70-99) H 12/05/24 03:52 Calcium 9.1 mg/dl (8.6-10.3) 12/05/24 01:25 Total Bilirubin 0.3 mg/dl (0.2-1.0) 12/05/24 01:25 AST 20 U/L (13-39) 12/05/24 02:38 ALT 22 U/L (7-52) 12/05/24 01:25 Alkaline Phosphatase 61 U/L (34-104) 12/05/24 01:25 Troponin I High Sens 3.7 pg/ml (0-20) 12/05/24 01:25 Total Protein 8.1 gm/dl (6.0-8.3) 12/05/24 01:25 Albumin 4.2 gm/dl (3.4-5.0) 12/05/24 01:25 Globulin 3.9 gm/dl (2.5-4.0) 12/05/24 01:25 Albumin/Globulin Ratio 1.1 (0.9-2) 12/05/24 01:25 Lipase 71 U/L (11-82) 12/05/24 01:25 Impressions Chest X-Ray 12/05/24 01:37 EXAM: XR chest 1V portable CLINICAL HISTORY: Chest pain, nonspecific TECHNIQUE: An X-ray image of the chest is obtained in AP projection. COMPARISON: 09/25/2020 FINDINGS: Pulmonary Parenchyma: Lungs are clear bilaterally. No evidence of consolidation, collapse, or focal opacities. No pulmonary nodules are identified. No evidence of pleural effusion or pleural thickening on the right. There is blunting of the left costophrenic angle. Minor fissure is thickened on the right. Heart and Mediastinum: Heart size is increased. No mediastinal widening or masses. No hilar or mediastinal lymphadenopathy. Bony Thorax: Bony thorax appears intact without fractures or deformities. Soft Tissues: Soft tissues overlying the chest wall are unremarkable. IMPRESSION: 1. Blunting of the left costophrenic angle, which might be mild effusion and/or secondary to adhesion. Interval new. 2. Cardiomegaly. Electronically signed by Rj Billingsley 12-05-2024 03:01 AM Diagnostic Findings EKG as per my interpretation :Rate 85, NSR, normal axis, no ischemia
[2024-12-05] MEDS ORDERED: LORazepam 0.5 MG TAB PO PRN (04:55)
[2024-12-05] MEDS ORDERED: NITROGLYCERIN SL 0.4 MG/TAB TAB SL PRN (04:55)
[2024-12-05] MEDS ORDERED: MoRPHine SULFATE 4 MG/ML 1 ML CARP\\VIAL IV PRN (04:55)
[2024-12-05] MEDS ORDERED: PROMETHAZINE 12.5 MG/50.5 ML BAG IV PRN (04:55)
[2024-12-05 05:03] LABS: Partial Thromboplastin Time 28 Seconds (21-31)
[2024-12-05] MEDS: SODIUM CHLORIDE 0.9% 1,000 ML IV ONE (06:04)
[2024-12-05 07:12] LABS: Cholesterol 114.0 mg/dl (0-200); HDL Cholesterol 36.0 mg/dl; Triglycerides 102.0 mg/dl (0-150)
[2024-12-05 07:47] LABS: Hemoglobin A1C 6.2 % (4.5-5.6)
[2024-12-05] MEDS: ENOXAPARIN INJ 40 MG/0.4 ML SYR SQ SCH (11:21)
--- NOTE | 2024-12-05 11:56 | Cardiology Consultation ---
Date of Consultation December 05, 2024 Assessment & Plan (1) Acute pain of left shoulder: (2) Left-sided chest pain: As noted, the patient's exercise stress echocardiogram revealed no stress- induced EKG abnormalities to suggest ischemia and the resting and stress wall motion were normal. The test was terminated due to fatigue and dyspnea. Patient was more dyspneic than what I would expect in a man of his age and fitness level. Chest discomfort was not reproduced with exercise but the left shoulder discomfort rating to his left scapula was. Symptoms not reproduced with deep inspiration or movement of the shoulder. Although the EKG and echocardiographic findings are reassuring, I am concerned about his symptoms. D-dimer screen was within normal limits however given his shortness of breath and recent prolonged car travel would recommend consideration of increased workup for venous thromboembolic disease, perhaps he CT angiogram of the chest pulmonary embolism protocol. I have requested a third troponin level, erythrocyte sedimentation rate and C- reactive protein. Patient to remain NPO pending further test results. Continue aspirin 81 mg daily, DVT prophylaxis Lovenox. Will order this prior to hospital treatment with rosuvastatin. Case discussed with Dr Bray of the hospitalist service for the purpose of coordination of care. History of Present Illness Attending Physician: Jacinta Bray MD History of Present Illness Mike Chamorro Is a 54-year-old male seen in cardiology consultation per the request of Dr. Bray for the evaluation of left shoulder and chest discomfort. The patient notes recent travel including a family trip to [place] last week, and recent travel to [place] and in the [place] to go to the beach. He attributed that the shortness of breath while in [place] due to heat, humidity and elevation. The patient noted onset of left shoulder discomfort yesterday that waxed and waned. He does not recall having injured his shoulder. The discomfort is not reproduced with palpation or moving his shoulder. The discomfort has radiated to the left scapula. He had a brief interval when it seemed to radiate to his chest. He had some tingling down his forearm yesterday but that has since resolved. D-dimer test performed in the emergency department was within normal limits. High-sensitivity troponin x 2 was within normal limits. An EKG performed on arrival revealed sinus rhythm without ST segment changes. He went on to have an exercise stress echocardiogram today during which time he exercised to a moderately high workload. At baseline left shoulder discomfort 2/10 intensity was present prior to exercise which increased to a 5/10 intensity and radiated to his scapula. No chest discomfort was reported with exercise. In the post-rest recovery interval his shoulder discomfort was worse, but it is difficult to discern if that was related to how he had to position his arm in order to have the echocardiogram images performed. There is no EKG or echocardiographic evidence of inducible ischemia. PAST MEDICAL HISTORY overweight, obstructive sleep apnea for which he utilizes CPAP, dyslipidemia, and mood disorder. FAMILY HISTORY Denies any family history of coronary disease Allergies Allergy/AdvReac Type Severity Reaction Status Date / Time prednisone AdvReac Intermediate Pt states Verified 09/04/24 13:57 "I get mean", AGGRESSIVE Home Medications Medication Instructions Recorded Confirmed Type rosuvastatin 20 mg tablet 20 mg PO DAILY 12/05/24 12/05/24 History venlafaxine 75 mg tablet 75 mg PO HS 12/05/24 12/05/24 History venlafaxine 75 mg tablet 150 mg PO QAM 12/05/24 12/05/24 History Patient History Surgical History History of lumbar surgery S/P arthroscopic knee surgery Social History Smoking Status: Never smoker Second Hand Exposure: No; Do You Dip or Chew Tobacco: No; Hx Alcohol Use: Yes Alcohol type: beer Hx Substance Use: No Preferred Language: Greenlandic Communication Ability: Effective Alliance Director Required: No Beliefs That Will Affect Care: None Current Living Situation: Spouse Other Information That Helps Us Care for You: No Feels Safe at Home: Yes Safety Concerns: Feels Safe At This Time Assistive Devices: CPAP Review of Systems Review of Systems: All systems reviewed & are unremarkable except as noted in HPI & below Physical Exam Physical Exam: General: no acute distress and stated age Eyes: conjunctiva are pink and non-injected, sclera clear Neck: normal jugular venous pulse, no hepatojugular reflux Chest: normal shape and normal respiratory effort Lungs: clear to auscultation and percussion Cardiac Exam: - regular heart sounds, no murmurs, rubs, or gallops, no jugular venous distention Abdomen: abdomen soft, non-tender, no abnormal masses and no hepatosplenomegaly Musculoskeletal: no gait disturbance, no weakness,No discomfort reproduced with palpation at manipulation of the left shoulder joint Extremities: no edema and no cyanosis Neuro:awake, conversant, follows commands, no focal motor deficits Psych: appropriate affect and insight. Skin: No rashes Results & Data Vital Signs (Past 12 Hours) Vital Signs Temp Pulse Pulse Resp BP BP Pulse Ox 12/05/24 08:33 36.5 C 72 19 145/88 H 92 12/05/24 06:00 36.5 C 72 18 121/73 93 12/05/24 05:30 129/82 12/05/24 05:24 68 12 92 12/05/24 05:21 67 15 93 12/05/24 05:12 70 17 94 12/05/24 05:00 71 17 129/80 93 12/05/24 04:51 72 17 91 12/05/24 04:36 70 15 91 12/05/24 04:30 127/77 12/05/24 04:27 73 12 91 12/05/24 04:13 124/79 12/05/24 04:06 75 17 90 12/05/24 04:03 94/60 L 12/05/24 04:03 94/60 L 12/05/24 04:03 76 14 90 12/05/24 03:45 76 19 93 12/05/24 03:33 74 16 92 12/05/24 03:21 72 14 92 12/05/24 03:00 70 15 92 12/05/24 02:51 72 17 91 12/05/24 02:33 74 16 91 12/05/24 02:15 72 18 91 12/05/24 02:00 73 20 92 12/05/24 01:40 97 12/05/24 01:31 151/87 H 12/05/24 01:27 82 21 12/05/24 01:23 78 12/05/24 01:15 78 20 174/91 H 93 O2 Del Method 12/05/24 08:33 Room Air 12/05/24 06:00 Room Air 12/05/24 05:30 12/05/24 05:24 12/05/24 05:21 12/05/24 05:12 12/05/24 05:00 12/05/24 04:51 12/05/24 04:36 12/05/24 04:30 12/05/24 04:27 12/05/24 04:13 12/05/24 04:06 12/05/24 04:03 12/05/24 04:03 12/05/24 04:03 12/05/24 03:45 12/05/24 03:33 12/05/24 03:21 12/05/24 03:00 12/05/24 02:51 12/05/24 02:33 12/05/24 02:15 12/05/24 02:00 12/05/24 01:40 Room Air 12/05/24 01:31 12/05/24 01:27 12/05/24 01:23 12/05/24 01:15 Room Air Laboratory Results Cardiac Enzymes 12/05/24 12/05/24 12/05/24 Range/Units 01:25 02:38 05:38 AST TNP 20 Troponin I High Sens 3.7 4.1 (0-20) pg/ml Coagulation 12/05/24 Range/Units 03:50 APTT 28 (21-31) Seconds Lipids 12/05/24 Range/Units 05:38 Triglycerides 102 (0-150) mg/dl Cholesterol 114 (0-200) mg/dl HDL Cholesterol 36 mg/dl Cholesterol/HDL Ratio 3.2 (0-5) LDL cholesterol: 58 mg;dl CBC 12/05/24 Range/Units 01:25 WBC 8.62 (4.8-10.8) K/ul RBC 4.81 (4.70-6.10) M/uL Hgb 14.5 (14.0-18.0) g/dl Hct 42.8 (42.0-52.0) % Plt Count 223 (130-400) K/uL Neut # (Auto) 3.50 (1.40-6.50) K/uL Lymph # (Auto) 3.75 H (1.20-3.40) K/uL [place] # (Auto) 0.83 H (0.11-0.59) K/uL Eos # (Auto) 0.45 (0.00-0.50) K/uL Baso # (Auto) 0.07 (0.00-0.20) K/uL Comprehensive Metabolic Panel 12/05/24 12/05/24 Range/Units 01:25 02:38 Sodium TNP 139 Potassium TNP 3.7 Chloride 104 (98-107) mmol/L Carbon Dioxide 28 (21-32) mmol/L BUN 17 (6-23) mg/dl Creatinine 0.92 (0.6-1.4) mg/dl Glucose 67 L (70-99(Fasting)) mg/dl Calcium 9.1 (8.6-10.3) mg/dl AST TNP 20 ALT 22 (7-52) U/L Alkaline Phosphatase 61 (34-104) U/L Total Protein 8.1 (6.0-8.3) gm/dl Albumin 4.2 (3.4-5.0) gm/dl Intake and Output 12/04/24 12/05/24 12/05/24 22:59 06:59 14:59 Other: Weight 113.398 kg Weight Measurement Method Built in [facility] Diagnostic Findings EKG performed today 12/05/2024 at 1:20 AM and interpret independently: Sinus rhythm at 86 bpm, normal EKG [place] [address] IN/OBS CONSULT LVL 4,60M Patient Type New History Comprehensive Exam Comprehensive Medical Decision Making High Complexity Diagnoses Acute pain of left shoulder M25.512 Left-sided chest pain R07.9
[2024-12-05] MEDS: OPTIRAY 320 125ml IV ONE (12:32)
--- NOTE | 2024-12-05 12:44 | CT Scan Report ---
CT angio chest PE protocol CT DOSE: 907.01 mGy.cm HISTORY: R/O PE. TECHNIQUE: Multiple CTA images of the chest were obtained after the intravenous administration of 120 ml Optiray. Coronal and sagittal MIPS were obtained from the axial data set and were submitted for review. All measurements were obtained according to NASCET criteria. A dose lowering technique was u tilized adhering to the principles of ALARA. COMPARISON STUDY: None FINDINGS: Inspiration is shallow. There is mild dependent atelectasis lung bases. No other consolidat ion or pleural effusion. No pneumothorax. No enlarged adenopathy. No thoracic aortic aneurysm. There are coronary artery calcifications. No pulmonary embolism seen. No acute osseous findings. IMPRESSION: No pulmonary embolism seen. ACT 112: Negative or not required by law. The above report was generated using voice recognition software. It may contain grammatical, syntax o r spelling errors. Electronically signed by: Adriano Patrick M.D. 12/05/2024 12:42 PM
--- NOTE | 2024-12-05 13:10 | Electrocardiogram Report ---
Test Reason : Blood Pressure : */* mmHG Vent. Rate : 86 BPM Atrial Rate : 86 BPM P-R Int : 178 ms QRS Dur : 88 ms QT Int : 358 ms P-R-T Axes : 30 26 38 degrees QTcB Int : 428 ms Normal sinus rhythm Normal ECG When compared with ECG of 28-Feb-2023 09:09, No significant change was found Confirmed by Ti Pino ([id number]) on 12/05/2024 1:10:11 PM Referred By: REFERRED SELF Confirmed By: Ti Pino
[2024-12-05] MEDS: ROSUVASTATIN CALCIUM 20 MG TAB PO SCH (13:27)
--- NOTE | 2024-12-05 14:14 | Hospitalist Progress Note ---
Date of Service December 05, 2024 Assessment & Plan (1) Left-sided chest pain: (2) Acute pain of left shoulder: (3) Severe obstructive sleep apnea: (4) Dyslipidemia: (5) Depression: Plan 54 year old male with PMH significant for dyslipidemia, KELLEE on CPAP, and depression who presented to the ED on 12/05/2024 with chest pain and left shoulder pain and is admitted for further work up of this. Left sided chest pain Patient with dull chest pain and SOB with exertion x1 month and acute onset of sharp stabbing chest pain last night EKG and stress echocardiogram without evidence of ischemia Troponin x2 negative Cardiology consulted and recommending: * CTA PE - no PE but coronary artery calcifications appreciated * CRP and ESR - both WNL * Third troponin level - negative * Continue baby aspirin and lovenox for DVT prophylaxis * Continue rosuvastatin * NPO at midnight for possible cath tomorrow Acute pain of left shoulder Acute onset of pain yesterday with no history of injury, changes locations, not reproducible, no alleviating factors identified Associated radiculopathy Obtain cervical and thoracic spine MRI to rule out disc disease Pain control with PRN tylenol and morphine KELLEE CPAP HS Dyslipidemia Continue rosuvastatin Depression Continue venlafaxine DVT Prophylaxis: SQ lovenox Code Status: FULL CODE PCP: Kan Cunningham Patient seen in collaboration with Dr Bray. Please see addendum. I spent a total of 60 minutes coordinating, documenting and providing care for this patient excluding time spent in the performance of separately billed services or time spent by another provider/QHP. Admission and Anticipated Discharge Date Admission Date: December 05, 2024 Supervising Physician Co-Signing Physician Notes Attending addendum: The patient was seen and examined in telemetry unit He complains to have some pain in the precordium and also at the back over the lower end of the scapula Active movements of the left shoulder joint did not produce much pain Pain is worse with prolonged standing and doing some activities Denies any shortness of breath or palpitation On examination Remains stable weight without any acute distress Hemodynamically stable Chest was clear to auscultation bilaterally Minimal tenderness noted at the lower end of the left scapula No precordial tenderness HeartS1-S2, regular Abdomenbenign CNSalert, awake and oriented x 3 His labs, medications and imaging studies were reviewed Underwent stress echo which was unequivocal and required further testing Appreciate cardiology input and recommendation CTA did not show any pulmonary embolism but showed calcium burden in coronaries Will get MRI of the cervical and thoracic spine to rule out any nerve entrapment Possible cardiac cath tomorrow Agree with assessment plan as outlined above by Elisabet THOMAS and take the full responsibility of care in the hospital DR Idania Bray Subjective Patient seen laying in bed after stress echo test Reports intermittent left shoulder pain that changes locations from anterior to posterior with no alleviating factors, no recent injury or overuse Reports dull aching chest pain and SOB with exertion x1 month, recalls getting very [place] Noted sharp left chest pain last night that he described as a knife in his chest prompting evaluation Current chest pain 07/02 and left shoulder pain 10/30 Review of Systems Review of Systems: All systems reviewed & are unremarkable except as noted in Subjective Physical Exam Physical Exam: General/Psych: obese, sitting up in bed, NAD, conversing easily, appears anxious Head: normocephalic, atraumatic Eyes: normal inspection, PERRL, conjunctivae pink ENT: external ear and nose normal, oropharynx normal Neck: normal visual inspection, trachea midline, no thyromegaly Respiratory: normal respiratory effort, lungs clear to auscultation, no wheeze/rales/rhonchi, no accessory muscle use Cardiovascular: regular rate and rhythm, no murmur/rub/gallop, no JVD Extremities: no cyanosis or clubbing, normal peripheral pulses, no BLE edema Abdomen/GI: normal bowel sounds, soft, nontender Neurologic/MSK: A+Ox3, motor strength 5/5, moves all extremities Skin: no rashes, normal color, warm and dry Results & Data Results & Data Vital Signs (Past 12 Hours) Vital Signs Temp Pulse Pulse Resp BP BP Pulse Ox 12/05/24 12:29 36.6 C 73 19 143/93 H 90 12/05/24 08:33 36.5 C 72 19 145/88 H 92 12/05/24 06:00 36.5 C 72 18 121/73 93 12/05/24 05:30 129/82 12/05/24 05:24 68 12 92 12/05/24 05:21 67 15 93 12/05/24 05:12 70 17 94 12/05/24 05:00 71 17 129/80 93 12/05/24 04:51 72 17 91 12/05/24 04:36 70 15 91 12/05/24 04:30 127/77 12/05/24 04:27 73 12 91 12/05/24 04:13 124/79 12/05/24 04:06 75 17 90 12/05/24 04:03 94/60 L 12/05/24 04:03 94/60 L 12/05/24 04:03 76 14 90 12/05/24 03:45 76 19 93 12/05/24 03:33 74 16 92 12/05/24 03:21 72 14 92 12/05/24 03:00 70 15 92 12/05/24 02:51 72 17 91 12/05/24 02:33 74 16 91 12/05/24 02:15 72 18 91 O2 Del Method 12/05/24 12:29 Room Air 12/05/24 08:33 Room Air 12/05/24 06:00 Room Air 12/05/24 05:30 12/05/24 05:24 12/05/24 05:21 12/05/24 05:12 12/05/24 05:00 12/05/24 04:51 12/05/24 04:36 12/05/24 04:30 12/05/24 04:27 12/05/24 04:13 12/05/24 04:06 12/05/24 04:03 12/05/24 04:03 12/05/24 04:03 12/05/24 03:45 12/05/24 03:33 12/05/24 03:21 12/05/24 03:00 12/05/24 02:51 12/05/24 02:33 12/05/24 02:15 Laboratory Results Short CBC 12/05/24 Range/Units 01:25 WBC 8.62 (4.8-10.8) K/ul Hgb 14.5 (14.0-18.0) g/dl Hct 42.8 (42.0-52.0) % Plt Count 223 (130-400) K/uL BMP 12/05/24 12/05/24 01:25 02:38 Sodium TNP 139 Potassium TNP 3.7 Chloride 104 Carbon Dioxide 28 BUN 17 Creatinine 0.92 Glucose 67 L Calcium 9.1 Liver Function 12/05/24 12/05/24 Range/Units 01:25 02:38 Total Bilirubin 0.3 (0.2-1.0) mg/dl AST TNP 20 ALT 22 (7-52) U/L Alkaline Phosphatase 61 (34-104) U/L Albumin 4.2 (3.4-5.0) gm/dl I have independently reviewed and interpreted patient's labs including CBC, CMP, PTT, PT/INR, troponin, A1C, lipid panel, CRP, ESR. Diagnostic Findings Chest X-Ray 12/05/24 01:37 EXAM: XR chest 1V portable CLINICAL HISTORY: Chest pain, nonspecific TECHNIQUE: An X-ray image of the chest is obtained in AP projection. COMPARISON: 09/25/2020 FINDINGS: Pulmonary Parenchyma: Lungs are clear bilaterally. No evidence of consolidation, collapse, or focal opacities. No pulmonary nodules are identified. No evidence of pleural effusion or pleural thickening on the right. There is blunting of the left costophrenic angle. Minor fissure is thickened on the right. Heart and Mediastinum: Heart size is increased. No mediastinal widening or masses. No hilar or mediastinal lymphadenopathy. Bony Thorax: Bony thorax appears intact without fractures or deformities. Soft Tissues: Soft tissues overlying the chest wall are unremarkable. IMPRESSION: 1. Blunting of the left costophrenic angle, which might be mild effusion and/or secondary to adhesion. Interval new. 2. Cardiomegaly. Electronically signed by Rj Billingsley 12-05-2024 03:01 AM Chest CTA 12/05/24 11:26 CT angio chest PE protocol CT DOSE: 907.01 mGy.cm HISTORY: R/O PE. TECHNIQUE: Multiple CTA images of the chest were obtained after the intravenous administration of 120 ml Optiray. Coronal and sagittal MIPS were obtained from the axial data set and were submitted for review. All measurements were obtained according to NASCET criteria. A dose lowering technique was utilized adhering to the principles of ALARA. COMPARISON STUDY: None FINDINGS: Inspiration is shallow. There is mild dependent atelectasis lung bases. No other consolidation or pleural effusion. No pneumothorax. No enlarged adenopathy. No thoracic aortic aneurysm. There are coronary artery calcifications. No pulmonary embolism seen. No acute osseous findings. IMPRESSION: No pulmonary embolism seen. ACT 112: Negative or not required by law. The above report was generated using voice recognition software. It may contain grammatical, syntax or spelling errors. Electronically signed by: Adriano Patrick M.D. 12/05/2024 12:42 PM Medications Administered Current Inpatient Medications Acetaminophen (Acetaminophen 325 Mg Tab) 650 mg PO QID PRN PRN Reason: pain/fever Stop: 01/04/25 04:54 Aspirin (Aspirin 81 Mg Ectab) 81 mg PO HS ALEN Stop: 01/04/25 20:59 Enoxaparin Sodium (Enoxaparin Inj 40 Mg/0.4 Ml Syr) 40 mg SQ QAM ALEN Stop: 01/04/25 08:59 Last Admin: 12/05/24 11:21 Dose: 40 mg Promethazine HCl (Phenergan) 12.5 mg in 50.5 mls @ 202 mls/hr IV Q6H PRN PRN Reason: Nausea And Vomiting Stop: 01/04/25 04:54 Sodium Chloride (Nss) 1,000 mls @ 50 mls/hr IV .Q20H ONE Stop: 12/06/24 01:22 Last Admin: 12/05/24 06:04 Dose: 50 mls/hr Lorazepam (Lorazepam 0.5 Mg Tab) 0.5 mg PO TID PRN PRN Reason: Anxiety Stop: 01/04/25 04:54 Morphine Sulfate (Morphine Sulfate 4 Mg/Ml 1 Ml Carp\Vial) 4 mg IV Q4H PRN PRN Reason: Pain Stop: 12/19/24 04:54 Nitroglycerin (Nitroglycerin Sl 0.4 Mg/Tab Tab) 0.4 mg SL Q5M PRN PRN Reason: Chest Pain Stop: 01/04/25 04:54 Rosuvastatin Calcium (Rosuvastatin Calcium 20 Mg Tab) 20 mg PO QAM ALEN Stop: 01/04/25 11:59 Last Admin: 12/05/24 13:27 Dose: 20 mg Venlafaxine HCl (Venlafaxine Hcl 37.5 Mg Tab) 150 mg PO QAM ALEN Stop: 01/05/25 08:59 Venlafaxine HCl (Venlafaxine Hcl 37.5 Mg Tab) 75 mg PO HS ALEN Stop: 01/04/25 20:59
[2024-12-05] MEDS: VENLAFAXINE HCL 50 MG TAB PO ONE (14:57)
--- NOTE | 2024-12-05 19:47 | Magnetic Resonance Report ---
MRI CERVICAL SPINE WITHOUT CONTRAST TECHNIQUE: An MRI examination of the cervical spine was performed. The examination consists of sagittal T1-weighted, inversion recovery and T2 weighted images as well as axial T1-weighted, T2-weighted and gradient echo images. INDICATION: Neck pain COMPARISON: MRI of the cervical spine January 15, 2020 FINDINGS: No significant vertebral body height loss. No significant spondylolisthesis. There is straightening of the usual cervical lordosis. Bone marrow signal is unremarkable, noting a small intraosseous hemangioma in T2 vertebral body. The spinal cord bulk is normal. There are multilevel degenerative changes of the cervical spine as below: C2-3: Mild disc osteophyte complex, bilateral facet and uncovertebral hypertrophy. No significant spinal canal or neural foraminal narrowing. C3-4: Disc osteophyte complex, bilateral facet and uncovertebral hypertrophy. These changes result in moderate narrowing of the spinal canal with mass effect being exerted upon the cervical cord that is flattened. Severe left and moderate to severe right neural foraminal narrowing. C4-5: Disc osteophyte complex that is eccentric to the left, bilateral facet and uncovertebral hypertrophy. These changes result in mild narrowing of the spinal canal, severe left and moderate to severe right neural foraminal narrowing. C5-6: Disc osteophyte complex that is eccentric to the right, bilateral facet and uncovertebral hypertrophy. These changes result in mild narrowing of the spinal canal, moderate left and severe right neural foraminal narrowing. C6-7: Disc osteophyte complex that is eccentric to the left, bilateral facet and uncovertebral hypertrophy. These changes result in mild narrowing of the spinal canal, severe left and moderate to severe right neural foraminal narrowing. C7-T1: Disc osteophyte complex, bilateral facet and uncovertebral hypertrophy. These changes result in mild narrowing of the spinal canal, severe and moderate bilateral neural foraminal narrowing. IMPRESSION: Advanced and diffuse multilevel degenerative changes of the cervical spine as above. Electronically signed by Ed Samuel 12-05-2024 7:47 PM
--- NOTE | 2024-12-05 20:34 | Magnetic Resonance Report ---
EXAM: MR thoracic spine wo con CLINICAL HISTORY: Left shoulder pain with numbness. TECHNIQUE: Multiplanar multi sequential MRI sequences of the thoracic spine without contrast administration were obtained. COMPARISON: Previous MRI dated 01/14/2020. FINDINGS: Intervertebral Discs: Multi-level mild disc dessication. No evidence of nerve root compression or spinal cord compression. No arthropathy of the uncovertebral and zygapophyseal joints in visualized images. Facet Joints: Normal appearance of the facet joints. No evidence of facet arthropathy or significant degenerative changes. Vertebrae: Normal alignment of the thoracic vertebrae. No fractures, lytic or sclerotic lesions. Normal bone marrow signal intensity besides redemonstrated small bony hemangiomas at T2, T7 and T9. [id number] analysis: C7-T1: No significant disc pathology. Normal ligamentum flava morphology, no arthropathy of the facet joints, and no significant spinal canal stenosis. T1-T2: No significant disc pathology. Normal ligamentum flava morphology, no arthropathy of the facet joints, and no significant spinal canal stenosis. T2-T3: Diffuse disc bulge extending approximately 2.3 mm posteriorly, causing mild narrowing of the spinal canal and mild to moderate narrowing of bilateral neural foramina. T3-T4: Mild diffuse disc bulge extending approximately 1.6 mm posteriorly, causing indentation on the anterior thecal sac. The spinal canal and neural foramina are normal. T4-T5: Mild diffuse disc bulge extending approximately 1.8 mm posteriorly, causing indentation on the anterior thecal sac. The spinal canal and neural foramina are normal. T5-T6: Diffuse disc bulge extending approximately 2.2 mm posteriorly, causing indentation on the anterior thecal sac. The spinal canal and neural foramina are normal. T6-T7: Diffuse disc bulge extending approximately 2.3 mm posteriorly, causing indentation on the anterior thecal sac. The spinal canal and neural foramina are normal. T7-T8: Diffuse disc bulge (3.8 mm) causing indentation of thecal sac and mild spinal canal narrowing. Normal ligamentum flava morphology, no arthropathy of the facet joints. Normal ligamentum flava morphology, no arthropathy of the facet joints. T8-T9: No significant disc pathology. Normal ligamentum flava morphology, no arthropathy of the facet joints, and no significant spinal canal stenosis. T9-T10: Broad-based disc protrusion (5.1 mm) with predominantly left paracentral component, seen causing moderate spinal canal narrowing. A slight extruded component seen extending caudally. Increased. Normal ligamentum flava morphology, no arthropathy of the facet joints, and no significant spinal canal stenosis. T10-T11: There is thickening of left-sided ligamentum flavum, causing mild to moderate narrowing. Stable. No significant disc pathology. No arthropathy of the facet joints. T11-T12: Fused disc bulge extending approximately 2.8 mm posteriorly causing indentation on the anterior thecal sac. Spinal canal and neural foramina are normal. T12:L1: Focal left para-central disc bulge (3.0 mm) causing mild left neural foraminal stenosis. Radial tear in annulus fibers. Normal ligamentum flava morphology, no arthropathy of the facet joints, Spinal Cord: Normal signal intensity and morphology of the spinal cord. No evidence of intrinsic cord lesions, syrinx, or abnormal signal changes. Soft Tissues: Normal appearance of the paraspinal soft tissues. No abnormal masses, fluid collections, or signs of inflammation. Thoracic Kyphosis: Normal thoracic kyphosis without abnormal curvature. IMPRESSION: 1. Thoracic spondylosis with multi-level degenerative discs. Progression of T9-10 disc protrusion, now seen causing moderate spinal canal stenosis. Extruded component also seen extending caudally in the current images. Overall, interval progression in this degenerative disease process. 2. No compression of the spinal cord or nerve roots. Electronically signed by Rj Billingsley 12-05-2024 8:33 PM
[2024-12-05] MEDS: ASPIRIN 81 MG ECTAB PO SCH (20:49)
[2024-12-05] MEDS: VENLAFAXINE HCL 37.5 MG TAB PO SCH (20:50)
[2024-12-05] MEDS ORDERED: VENLAFAXINE HCL XR 75 MG CAPXR PO SCH (21:00)
[2024-12-06 06:14] LABS: Hematocrit (blood only) 40.1 % (42.0-52.0); Hemoglobin 13.7 g/dl (14.0-18.0); Mean Corpuscular Hemoglobin 30.5 pg (25.0-34.0); Mean Corpuscular Volume 89.3 fL (80.0-100.0); Platelet Count 195 K/uL (130-400); RDW Standard Deviation 43.8 fL (36.4-46.3); Red Blood Count 4.49 M/uL (4.70-6.10); White Blood Count 11.02 K/ul (4.8-10.8)
[2024-12-06 06:34] LABS: Anion Gap 5.0 (3-11); Blood Urea Nitrogen 14.0 mg/dl (6-23); Calcium 8.3 mg/dl (8.6-10.3); Carbon Dioxide 29.0 mmol/L (21-32); Chloride 106.0 mmol/L (98-107); Creatinine Clr Calc Pharmacy 113.1 ml/min; Glucose 87.0 mg/dl (70-99(Fasting)); Potassium 4.1 mmol/L (3.5-5.1); Sodium 140.0 mmol/L (136-145)
--- NOTE | 2024-12-06 09:03 | Cardiology Progress Note ---
Date of Service December 06, 2024 Assessment & Plan (1) Acute pain of left shoulder: (2) Left-sided chest pain: (3) BROWN (dyspnea on exertion): (4) Equivocal stress echocardiogram: (5) Degenerative disc disease, cervical: Plan: I do not think that the patient's shoulder discomfort is an anginal equivalent. He states he has had bicep tendon repair on that side and in retrospect the pain seems similar to when he had that performed. I do however have concern of his shortness of breath being an anginal equivalent. His spouse accompanies him at the bedside this morning. She notes observing progressive dyspnea on exertion over the last few years. 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 Recently on vacation he attempted to walk a distance of 40 yards in the sand and became severely short of breath was doubled over to try to catch his breath and it was his breathing that limited him not difficulty with his low back pain or sciatica at that time. Multivessel coronary calcification noted on CT angiogram pulmonary embolism study. Recommend proceeding with invasive coronary angiography for definitive diagnosis to rule in or rule out occlusive coronary disease. Cervical and thoracic MRI reveals multilevel disc disease but no acute emergent findings. If invasive procedure or to become necessary for the cervical spine, I feel cardiac catheterization will be helpful with regards to preoperative assessment. Discussed with patient and spouse who are agreeable with plan. Case discussed with Dr. Bray of the hospitalist service for the purpose of coordination of care. Continue ASA, rosuvastatin. With regards to treatment of back pain, patient has not done well with prednisone before which is caused change in mental status. He has been on gabapentin in the past but was not tolerated well/or effective. Future considerations include a trial of duloxetine However this would have to be performed in caution given his current treatment with venlafaxine. Lydia Diallo DO Admission and Anticipated Discharge Date Admission Date: December 05, 2024 Subjective Patient seen in cardiology follow up. Notes ongoing left shoulder pain. Physical Exam Physical Exam: General: no acute distress and stated age Eyes: conjunctiva are pink and non-injected, sclera clear Neck: normal jugular venous pulse, no hepatojugular reflux Chest: normal shape and normal respiratory effort Lungs: clear to auscultation and percussion Cardiac Exam: - regular heart sounds, no murmurs, rubs, or gallops, no jugular venous distention Abdomen: abdomen soft, non-tender, no abnormal masses and no hepatosplenomegaly Musculoskeletal: no gait disturbance, no weakness,No discomfort reproduced with palpation at manipulation of the left shoulder joint Extremities: no edema and no cyanosis Neuro:awake, conversant, follows commands, no focal motor deficits Psych: appropriate affect and insight. Skin: No rashes Results & Data Vital Signs (Past 12 Hours) Vital Signs Temp Pulse Pulse Resp BP Pulse Ox O2 Del Method 12/06/24 07:33 86 18 139/86 96 Room Air 12/06/24 02:28 36.7 C 73 18 148/90 H 93 CPAP 12/05/24 22:54 73 12/05/24 22:07 36.6 C 74 18 150/92 H 94 Room Air Laboratory Results Cardiac Enzymes 12/05/24 Range/Units 11:30 Troponin I High Sens 3.2 (0-20) pg/ml CBC 12/06/24 Range/Units 05:47 WBC 11.02 H (4.8-10.8) K/ul RBC 4.49 L (4.70-6.10) M/uL Hgb 13.7 L (14.0-18.0) g/dl Hct 40.1 L (42.0-52.0) % Plt Count 195 (130-400) K/uL Comprehensive Metabolic Panel 12/06/24 Range/Units 05:47 Sodium 140 (136-145) mmol/L Potassium 4.1 (3.5-5.1) mmol/L Chloride 106 (98-107) mmol/L Carbon Dioxide 29 (21-32) mmol/L BUN 14 (6-23) mg/dl Creatinine 0.92 (0.6-1.4) mg/dl Glucose 87 (70-99(Fasting)) mg/dl Calcium 8.3 L (8.6-10.3) mg/dl Intake and Output 12/05/24 12/06/24 12/06/24 22:59 06:59 14:59 Intake Total 720 / 1020 1000 / 1000 Balance 720 / 1020 1000 / 1000 Intake: IV 1000 / 1000 Sodium Chloride 0.9% 1,000 ml @ 1000 / 1000 50 mls/hr IV .Q20H ONE Rx#: [id number] Oral 720 / 1020 Other: # Unmeasured Voids 2 2 1 Weight 113.398 kg Weight Measurement [facility] Coding Level of Care Code 23643 SUB INP/OBS CARE 3/50MIN Diagnoses Acute pain of left shoulder M25.512 Left-sided chest pain R07.9 BROWN (dyspnea on exertion) R06.09 Equivocal stress echocardiogram R93.1 Degenerative disc disease, cervical M50.30
--- NOTE | 2024-12-06 13:02 | Pre Anesthesia Assessment ---
Date of Service December 06, 2024 Pre Sedation Assessment Vital Signs Temp Pulse Pulse Resp BP Pulse Ox O2 Del Method 12/06/24 07:33 86 18 139/86 96 Room Air 12/06/24 02:28 98.1 F 73 18 148/90 H 93 CPAP 12/05/24 22:54 73 12/05/24 22:07 97.9 F 74 18 150/92 H 94 Room Air 12/05/24 19:33 98.1 F 78 18 145/90 H 93 Room Air 12/05/24 16:45 97.3 F L 74 19 138/83 94 Room Air Cardiovascular + regular rate Respiratory + respiratory effort normal Pre-Sedation Airway Assessment Smoking Status: Never smoker Hx Sleep Apnea: No Hx Difficult Intubation: No Short, Thick Neck: No Thyromental Distance: > or= 3.5 Finger Breadths Oral Cavity: + WNL Mallampati Class: III ASA: ASA3 NPO Status Date of Last Intake of Fluids: 12/05/24 Time of Last Intake of Fluids: 20:00 Date of Last Intake of Solid Food: 12/05/24 Time of Last Intake of Solid Foods: 20:00 Procedure Planning Contraindications for Sedation: none Current Medications Reviewed: Yes Notes The planned sedation has been discussed with the patient. Informed Consent was obtained. I have identified the patient, determined the appropriateness of sedation and have assessed the patient immediately prior to the procedure. All medicine(s) and interventions are by my order.
[2024-12-06] MEDS: IODIXANOL (VISIPAQUE) 320 MG/ML 100ML IV ONE (14:15)
[2024-12-06] MEDS: MIDAZOLAM HCL 1 MG/ML 2ML VIAL ONE ×2 (14:15→14:57)
[2024-12-06] MEDS: niCARdipine 2,000 MCG/20 ML SYR ONE (14:17)
[2024-12-06] MEDS: NITROGLYCERIN/D5W 100MCG/ML 20ML SYR ONE (14:18)
--- NOTE | 2024-12-06 14:54 | Post Anesthesia Assessment ---
Date of Service December 06, 2024 Post Sedation Assessment Vital Signs Temp Pulse Pulse Resp BP Pulse Ox O2 Del Method 12/06/24 07:33 86 18 139/86 96 Room Air 12/06/24 02:28 98.1 F 73 18 148/90 H 93 CPAP 12/05/24 22:54 73 12/05/24 22:07 97.9 F 74 18 150/92 H 94 Room Air 12/05/24 19:33 98.1 F 78 18 145/90 H 93 Room Air 12/05/24 16:45 97.3 F L 74 19 138/83 94 Room Air Recovery Score Activity: Moves 4 extremities Respiration: Deep Breath/Cough Circulation: +/-20% PreAnes Value Consciousness: Fully Awake Oxygen Saturation: O2 needed for >90% Discharge Sedation Level of Care: Fast Track Phase II
[2024-12-06] MEDS: HEPARIN (PORCINE) 1000 UNIT/ML 10 ML (CATH LAB USE ONLY) ONE ×2 (14:56→16:42)
[2024-12-06] MEDS: OPTIRAY 350 ONE (14:56)
--- NOTE | 2024-12-06 14:56 | Cardiac Catheterization ---
[facility] Data: Order Entry Specialist Cardiac Status Clinical evaluation leading to the procedure CAD Presenation: Positive Stress Test Anginal Classification: CCS III Diagnostic Physicians Name: Gil Quach MD Closure Device Recommendations: PCI without planned CABG Cardiac Cath Procedure Full Procedure Date December 06, 2024 Pre-Procedure Diagnosis Pre-Procedure Diagnosis: Positive Stress Test AUC Score AUC Score: 7 Post-Procedure Diagnosis Post-Procedure Diagnosis: Severe CAD, Successful PCI and Normal Intracardiac Pressures Procedure(s) Performed Procedure(s) Performed: Coronary Angiography, Left Heart Cath, Drug Eluting Stent and IVUS Certified Technician Specialist Gil Quach MD Creative Services Intern(s) Laura Estimated Blood Loss Estimated Blood Loss: 15 Medication(s) Medication(s): Clopidogrel, Fentanyl, Heparin, Nicardipine, Nitroglycerin and Versed Summary of Findings Indication: Abnormal stress test, exertional dyspnea Access: 6 Fr right radial artery Catheters: Tangent, EBU 3.5 guide Findings: LM -dominant, normal caliber LAD -medium caliber, calcified severe proximal to mid disease up to 90% at takeoff of medium D2. Remainder of LAD without significant disease and extends to the apex. Medium D2 without significant disease. Circumflex -medium caliber, no significant disease. Medium OM 2 without disease. RCA -dominant, medium caliber, 40 to 50% mid segment disease, 30% distal stenosis at takeoff of PDA. Ostial PDA 6070% stenosis. 40-50% ostial stenosis in right posterior AV branch. Medium PLB without significant disease LVEDP -9 -- PCI -- Antithrombotic therapy: Heparin, clopidogrel Procedure: Left main cannulated with EBU 3.5 guide Pre-procedure flow KENNEDY 3 Driver Guard 50 wire passed across lesion into distal LAD [place] blue wire placed into D2 Proximal to mid LAD lesion predilated with 2.5 compliant balloon ConsiderC IVUS catheter placed to mid LAD. Pullback revealed diffuse calcified disease beginning in mid segment and extending across takeoff of D1 back to LAD ostium. No significant left main disease. Dilated lesion stented with 3.0 x 26 mm Tacos drug-eluting stent Stent post-dilated with 3.5 noncompliant balloon IC vasodilators administered for spasm KENNEDY-3 flow but moderate stenosis and jailed D2. D2 rewired with pilot submersible 50 wire Proximal/ostium of jailed D2 dilated with 2.0 balloon Repeat IVUS of LAD showed well opposed, potentially underexpanded stent around takeoff of D2 LAD stent predilated with 4.0 NC balloon IC vasodilators administered Post procedure KENNEDY 3 flow, stent well expanded with minimal residual stenosis. Mild to moderate residual jailed D2 stenosis but KENNEDY-3 flow and no other apparent coronary complications. Arterial Closure: TR band Summary: 1. Multivessel coronary artery disease - Calcified, diffuse prox-mid LAD disease up to 90% at takeoff of D2 40-50% mid RCA. 60-70% ostial RPDA. 40-50% ostial RPAV 2. Normal intracardiac filling pressure 3. Successful PCI of proximal to mid LAD with single drug-eluting stent (3.0 x 26 mm Tacos; postdilated with 4.0 NC). -- Angioplasty of jailed ostialproximal second diagonal Recommendations: To PCU for continued monitoring Loaded with clopidogrel 600 mg in Order Entry Specialist Continue dual-antiplatelet therapy for at least 6 months Continue statin, and ASCVD risk factor modification Medical management of residual non-high risk CAD. Hemodynamics Rest Ao:: 125/86/103 Final Ao: 105/71/117 LV: 114/9 Recommendations Recommendations: PCI without planned CABG Radiation Exposure (mGy) 2939 Contrast (mls) 140 Anesthesia Moderate 8917-2784 Procedural Complication(s) None Disposition Order Entry Specialist Holding/Recovery I attest to the content of the Intraoperative Record and any orders documented therein. Any exceptions are noted below. [facility] Card Cath Procedure Codes Cardiac Catheterization Procedure 1: Cardiovascular Cath Procedures: 62071 Coronaries and LHC (+/-LV) Therapeutic Services & Ancillary Procedure 1: Cardiovascular Tx and Anc Procedures: 82885 Ultrasonic Guidance Vascular Access Moderate Sedation Procedure 1: Sedation/Anesthesia: 25583 Mod Sedation by the same physician;Init15 Min Child Age 5 & Up Procedure 2: Sedation/Anesthesia: 76240 Mod Sedation by the same physician; Ea [id number] Minutes Stenting Procedure 1: Cardiovascular Stent Procedures: 80856 Perc transcatheter placement of intracoronary stent(s), with ang PG Care Time/CCT Total # of Minutes Spent Total Time Spent with Patient: Total time spent is greater than 50% in coordination of care (as documented) at patient's floor/unit and/or counseling patient:
[2024-12-06] MEDS: CLOPIDOGREL BISULFATE 300 MG TAB ONE (14:57)
--- NOTE | 2024-12-06 16:20 | Hospitalist Progress Note ---
Date of Service December 06, 2024 Assessment & Plan (1) Left-sided chest pain: (2) Acute pain of left shoulder: (3) Severe obstructive sleep apnea: (4) Dyslipidemia: (5) Depression: Plan 54 year old male with PMH significant for dyslipidemia, KELLEE on CPAP, and depression who presented to the ED on 12/05/2024 with chest pain and left shoulder pain and is admitted for further work up of this. Left sided chest pain Patient with dull chest pain and SOB with exertion x1 month and acute onset of sharp stabbing chest pain night of 12/04 EKG and stress echocardiogram without evidence of ischemia Troponin x2 negative Cardiology consulted and recommending: * CTA PE - no PE but coronary artery calcifications appreciated * CRP and ESR - both WNL * Third troponin level - negative * Continue baby aspirin and lovenox for DVT prophylaxis * Continue rosuvastatin * Cardiac cath as below Multivessel coronary artery disease Dyslipidemia s/p successful PCI of LAD with single XIOMY by Dr Gil Quach on 12/06 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 DAPT for 6 months Continue statin Acute pain of left shoulder Acute onset of pain on 12/04 with no history of injury, changes locations, not reproducible, no alleviating factors identified Given history of back surgery obtained MRI cervical and thoracic spine Cervical spine MRI revealed advanced and diffuse multilevel degenerative changes of the cervical spine with moderate to severe neural foraminal narrowing from C3-T1 Thoracic spine MRI revealed thoracic spondylosis with multi-level degenerative discs; progression of T9-10 disc protrusion, now seen causing moderate spinal canal stenosis Case was discussed with Dr Sosa but this will not be able to be addressed surgically for 6 months due to need for DAPT Pain control with PRN tylenol and morphine Recommend outpatient follow up with orthospine for medical management Prediabetes A1C 6.2% Counseled patient on lifestyle modifications Follow up with PCP KELLEE CPAP HS Depression Continue venlafaxine DVT Prophylaxis: SQ lovenox Code Status: FULL CODE PCP: Kan Cunningham Patient seen in collaboration with Dr Bray. Please see addendum. I spent a total of 60 minutes coordinating, documenting and providing care for this patient excluding time spent in the performance of separately billed ser vices or time spent by another provider/QHP. Admission and Anticipated Discharge Date Admission Date: December 05, 2024 Supervising Physician Co-Signing Physician Notes Attending addendum: The patient was seen and examined in telemetry unit He complains to have some pain in the precordium and also at the back over the lower end of the scapula Active movements of the left shoulder joint did not produce much pain Pain is worse with prolonged standing and doing some activities Denies any shortness of breath or palpitation On examination Remains stable weight without any acute distress Hemodynamically stable Chest was clear to auscultation bilaterally Minimal tenderness noted at the lower end of the left scapula No precordial tenderness HeartS1-S2, regular Abdomenbenign CNSalert, awake and oriented x 3 His labs, medications and imaging studies were reviewed Underwent stress echo which was unequivocal and required further testing Appreciate cardiology input and recommendation CTA did not show any pulmonary embolism but showed calcium burden in coronaries Will get MRI of the cervical and thoracic spine to rule out any nerve entrapment Possible cardiac cath tomorrow Agree with assessment plan as outlined above by Elisabet THOMAS and take the full responsibility of care in the hospital DR Idania Bray 12/06/2024 The patient was seen and examined in telemetry unit in presence of the family members He is status postcardiac cath and successful PCI with XIOMY placement in LAD Denies any chest pain, shortness of breath or palpitation following the procedure Denies any other significant symptoms He remains hemodynamically stable Systemic examination remains unremarkable His labs and other imaging studies reviewed CAD status post And successful stent placement as above Multilevel cervical spine disease with left orthospine evaluation Agree with assessment and plan as outlined above by Elisabet THOMAS and take the full responsiility of care in the hospital DR Idania Bray Subjective Patient seen in bed after cardiac catheterization Reporting headache and hunger Notes slight SOB Denies chest pain, abdominal pain, N/V Review of Systems Review of Systems: All systems reviewed & are unremarkable except as noted in Subjective Physical Exam Physical Exam: General/Psych: obese, laying in bed, NAD, conversing easily, flat affect Head: normocephalic, atraumatic Eyes: normal inspection, PERRL, conjunctivae pink ENT: external ear and nose normal, oropharynx normal Neck: normal visual inspection, trachea midline, Respiratory: normal respiratory effort, lungs clear to auscultation, no wheeze/rales/rhonchi, no accessory muscle use Cardiovascular: regular rate and rhythm, no murmur/rub/gallop, no JVD Extremities: no cyanosis or clubbing, normal peripheral pulses, no BLE edema, radial band in place Abdomen/GI: normal bowel sounds, soft, nontender Neurologic/MSK: A+Ox3, motor strength 5/5, moves all extremities Skin: no rashes, normal color, warm and dry Results & Data Results & Data Vital Signs (Past 12 Hours) Vital Signs Pulse Resp BP Pulse Ox O2 Del Method 12/06/24 15:15 81 18 110/74 96 Room Air 12/06/24 07:33 86 18 139/86 96 Room Air Laboratory Results Short CBC 12/06/24 Range/Units 05:47 WBC 11.02 H (4.8-10.8) K/ul Hgb 13.7 L (14.0-18.0) g/dl Hct 40.1 L (42.0-52.0) % Plt Count 195 (130-400) K/uL BMP 12/06/24 05:47 Sodium 140 Potassium 4.1 Chloride 106 Carbon Dioxide 29 BUN 14 Creatinine 0.92 Glucose 87 Calcium 8.3 L I have independently reviewed and interpreted patient's labs including CBC and BMP Diagnostic Findings Cervical Spine MRI 12/05/24 14:50 MRI CERVICAL SPINE WITHOUT CONTRAST TECHNIQUE: An MRI examination of the cervical spine was performed. The examination consists of sagittal T1-weighted, inversion recovery and T2 weighted images as well as axial T1-weighted, T2-weighted and gradient echo images. INDICATION: Neck pain COMPARISON: MRI of the cervical spine January 15, 2020 FINDINGS: No significant vertebral body height loss. No significant spondylolisthesis. There is straightening of the usual cervical lordosis. Bone marrow signal is unremarkable, noting a small intraosseous hemangioma in T2 vertebral body. The spinal cord bulk is normal. There are multilevel degenerative changes of the cervical spine as below: C2-3: Mild disc osteophyte complex, bilateral facet and uncovertebral hypertrophy. No significant spinal canal or neural foraminal narrowing. C3-4: Disc osteophyte complex, bilateral facet and uncovertebral hypertrophy. These changes result in moderate narrowing of the spinal canal with mass effect being exerted upon the cervical cord that is flattened. Severe left and moderate to severe right neural foraminal narrowing. C4-5: Disc osteophyte complex that is eccentric to the left, bilateral facet and uncovertebral hypertrophy. These changes result in mild narrowing of the spinal canal, severe left and moderate to severe right neural foraminal narrowing. C5-6: Disc osteophyte complex that is eccentric to the right, bilateral facet and uncovertebral hypertrophy. These changes result in mild narrowing of the spinal canal, moderate left and severe right neural foraminal narrowing. C6-7: Disc osteophyte complex that is eccentric to the left, bilateral facet and uncovertebral hypertrophy. These changes result in mild narrowing of the spinal canal, severe left and moderate to severe right neural foraminal narrowing. C7-T1: Disc osteophyte complex, bilateral facet and uncovertebral hypertrophy. These changes result in mild narrowing of the spinal canal, severe and moderate bilateral neural foraminal narrowing. IMPRESSION: Advanced and diffuse multilevel degenerative changes of the cervical spine as above. Electronically signed by Ed Samuel 12-05-2024 7:47 PM Thoracic Spine MRI 12/05/24 14:50 EXAM: MR thoracic spine wo con CLINICAL HISTORY: Left shoulder pain with numbness. TECHNIQUE: Multiplanar multi sequential MRI sequences of the thoracic spine without contrast administration were obtained. COMPARISON: Previous MRI dated 01/14/2020. FINDINGS: Intervertebral Discs: Multi-level mild disc dessication. No evidence of nerve root compression or spinal cord compression. No arthropathy of the uncovertebral and zygapophyseal joints in visualized images. Facet Joints: Normal appearance of the facet joints. No evidence of facet arthropathy or significant degenerative changes. Vertebrae: Normal alignment of the thoracic vertebrae. No fractures, lytic or sclerotic lesions. Normal bone marrow signal intensity besides redemonstrated small bony hemangiomas at T2, T7 and T9. [id number] analysis: C7-T1: No significant disc pathology. Normal ligamentum flava morphology, no arthropathy of the facet joints, and no significant spinal canal stenosis. T1-T2: No significant disc pathology. Normal ligamentum flava morphology, no arthropathy of the facet joints, and no significant spinal canal stenosis. T2-T3: Diffuse disc bulge extending approximately 2.3 mm posteriorly, causing mild narrowing of the spinal canal and mild to moderate narrowing of bilateral neural foramina. T3-T4: Mild diffuse disc bulge extending approximately 1.6 mm posteriorly, causing indentation on the anterior thecal sac. The spinal canal and neural foramina are normal. T4-T5: Mild diffuse disc bulge extending approximately 1.8 mm posteriorly, causing indentation on the anterior thecal sac. The spinal canal and neural foramina are normal. T5-T6: Diffuse disc bulge extending approximately 2.2 mm posteriorly, causing indentation on the anterior thecal sac. The spinal canal and neural foramina are normal. T6-T7: Diffuse disc bulge extending approximately 2.3 mm posteriorly, causing indentation on the anterior thecal sac. The spinal canal and neural foramina are normal. T7-T8: Diffuse disc bulge (3.8 mm) causing indentation of thecal sac and mild spinal canal narrowing. Normal ligamentum flava morphology, no arthropathy of the facet joints. Normal ligamentum flava morphology, no arthropathy of the facet joints. T8-T9: No significant disc pathology. Normal ligamentum flava morphology, no arthropathy of the facet joints, and no significant spinal canal stenosis. T9-T10: Broad-based disc protrusion (5.1 mm) with predominantly left paracentral component, seen causing moderate spinal canal narrowing. A slight extruded component seen extending caudally. Increased. Normal ligamentum flava morphology, no arthropathy of the facet joints, and no significant spinal canal stenosis. T10-T11: There is thickening of left-sided ligamentum flavum, causing mild to moderate narrowing. Stable. No significant disc pathology. No arthropathy of the facet joints. T11-T12: Fused disc bulge extending approximately 2.8 mm posteriorly causing indentation on the anterior thecal sac. Spinal canal and neural foramina are normal. T12:L1: Focal left para-central disc bulge (3.0 mm) causing mild left neural foraminal stenosis. Radial tear in annulus fibers. Normal ligamentum flava morphology, no arthropathy of the facet joints, Spinal Cord: Normal signal intensity and morphology of the spinal cord. No evidence of intrinsic cord lesions, syrinx, or abnormal signal changes. Soft Tissues: Normal appearance of the paraspinal soft tissues. No abnormal masses, fluid collections, or signs of inflammation. Thoracic Kyphosis: Normal thoracic kyphosis without abnormal curvature. IMPRESSION: 1. Thoracic spondylosis with multi-level degenerative discs. Progression of T9-10 disc protrusion, now seen causing moderate spinal canal stenosis. Extruded component also seen extending caudally in the current images. Overall, interval progression in this degenerative disease process. 2. No compression of the spinal cord or nerve roots. Electronically signed by Rj Billingsley 12-05-2024 8:33 PM Medications Administered Current Inpatient Medications Acetaminophen (Acetaminophen 325 Mg Tab) 650 mg PO QID PRN PRN Reason: pain/fever Stop: 01/04/25 04:54 Aspirin (Aspirin 81 Mg Ectab) 81 mg PO HS ALEN Stop: 01/04/25 20:59 Last Admin: 12/05/24 20:49 Dose: 81 mg Clopidogrel Bisulfate (Clopidogrel Bisulfate 75 Mg Tab) 75 mg PO QAM [facility] Stop: 01/06/25 08:59 Enoxaparin Sodium (Enoxaparin Inj 40 Mg/0.4 Ml Syr) 40 mg SQ QAM [facility] Stop: 01/04/25 08:59 Last Admin: 12/05/24 11:21 Dose: 40 mg Promethazine HCl (Phenergan) 12.5 mg in 50.5 mls @ 202 mls/hr IV Q6H PRN PRN Reason: Nausea And Vomiting Stop: 01/04/25 04:54 Lorazepam (Lorazepam 0.5 Mg Tab) 0.5 mg PO TID PRN PRN Reason: Anxiety Stop: 01/04/25 04:54 Morphine Sulfate (Morphine Sulfate 4 Mg/Ml 1 Ml Carp\Vial) 4 mg IV Q4H PRN PRN Reason: Pain Stop: 12/19/24 04:54 Nitroglycerin (Nitroglycerin Sl 0.4 Mg/Tab Tab) 0.4 mg SL Q5M PRN PRN Reason: Chest Pain Stop: 01/04/25 04:54 Rosuvastatin Calcium (Rosuvastatin Calcium 20 Mg Tab) 20 mg PO QAM [facility] Stop: 01/04/25 11:59 Last Admin: 12/05/24 13:27 Dose: 20 mg Venlafaxine HCl (Venlafaxine Hcl 37.5 Mg Tab) 150 mg PO QAM [facility] Stop: 01/05/25 08:59 Venlafaxine HCl (Venlafaxine Hcl 37.5 Mg Tab) 75 mg PO [facility] Stop: 01/04/25 20:59 Last Admin: 12/05/24 20:50 Dose: 75 mg
[2024-12-06] MEDS: VENLAFAXINE HCL 37.5 MG TAB PO SCH (16:29)
[2024-12-06] MEDS: CLOPIDOGREL BISULFATE 75 MG TAB ONE (16:41)
[2024-12-06] MEDS: SODIUM CHLORIDE 0.9% 1,000 ML IV SCH (17:14)
[2024-12-06] MEDS: ACETAMINOPHEN 325 MG TAB PO PRN (17:30)
[2024-12-07 06:10] LABS: Hematocrit (blood only) 42.6 % (42.0-52.0); Hemoglobin 14.3 g/dl (14.0-18.0); Mean Corpuscular Hemoglobin 30.1 pg (25.0-34.0); Mean Corpuscular Volume 89.7 fL (80.0-100.0); Platelet Count 203 K/uL (130-400); RDW Standard Deviation 44.3 fL (36.4-46.3); Red Blood Count 4.75 M/uL (4.70-6.10); White Blood Count 7.25 K/ul (4.8-10.8)
[2024-12-07 06:26] LABS: Anion Gap 5.0 (3-11); Blood Urea Nitrogen 10.0 mg/dl (6-23); Calcium 8.4 mg/dl (8.6-10.3); Carbon Dioxide 29.0 mmol/L (21-32); Chloride 106.0 mmol/L (98-107); Creatinine Clr Calc Pharmacy 112.2 ml/min; Glucose 97.0 mg/dl (70-99(Fasting)); Magnesium 2.1 mg/dl (1.7-2.4); Potassium 4.2 mmol/L (3.5-5.1); Sodium 140.0 mmol/L (136-145)
[2024-12-07 09:33] VITALS: O2SAT 93
[2024-12-07] MEDS: CLOPIDOGREL BISULFATE 75 MG TAB PO SCH (09:36)
--- NOTE | 2024-12-07 11:29 | Discharge Summary ---
Date of Service December 07, 2024 Admission HPI Per Admitting Provider History obtained from patient and records. Medical history significant for hyperlipidemia, KELLEE on CPAP, mood disorder. Last confinement December 2019 for intractable back pain. Patient with exertional SOB symptoms last month last month during a family trip to [place]. No chest pain, no fluid retention. Compliant with CPAP. Patient seen at PCPs office last week. Outpatient stress test contemplated. Patient experience achy left shoulder pain while painting a door yesterday. He later developed sharp left-sided chest pain with SOB. No cough symptoms. Patient given aspirin at home by . SBP 170s upon arrival at the ER. Chest pain relieved by nitroglycerin administration at the ER. Patient currently comfortable. Medical History as above Surgical History : Urologic procedure, back surgery, knee surgery, umbilical hernia repair Family History : DM, colon cancer; negative heart disease Personal/Social history : Non-smoker, occasional EtOH intake, disabled Admission Exam Per Admitting Provider GENERAL: Comfortable, pleasant, obese, no respiratory distress SKIN: Normal color, warm HEENT: Partial alopecia, pink palpebral conjunctivae, no ptosis, moist buccal mucosa NECK : Supple, no tenderness CHEST : CTA, no tenderness HEART : RRR, no obvious murmurs ABDOMEN: Some distention, nontender EXTREMITIES : No LE swelling/tenderness, palpable pulses, no other conspicuous deformities noted NEUROLOGIC : Coherent, no facial asymmetry, no other gross focality Principal Diagnosis Multivessel CAD Discharge Exam Neuro: AAOx4, PERRLA, no aphagia, memory changes, CNII-XII grossly intact HEENT: head normocephalic, moist mucus membranes CV: S1/S2, (-) M/G/R, (-) edema, cap refill < 3 seconds Resp: Lungs CTA in all [place]. On RA GI: Abdomen S/NT/ND, Ax4 bowel sounds, (-) CVA tenderness Musculoskeletal: 5/5 B/L UE strength, 5/5 B/L LE strength. No gait disturbance Skin: (-) rashes , (-) erythema. Psych: euthymic mood Discharge Data Allergies Allergy/AdvReac Type Severity Reaction Status Date / Time prednisone AdvReac Intermediate Pt states Verified 12/06/24 07:40 "I get mean", AGGRESSIVE Consultations 12/05/24 04:42 ED Decision to Admit Stat 12/05/24 12:19 Consult Cardiology Routine Procedures Performed Operation Date: 12/06/24 11:00 Actual Procedures p Cineradiography w/Routine Exam - Gil Quach MD p Cath, Left with Cors and Vent - Gil Quach MD p Drug Eluting Stent SGl Vessel - Gil Quach MD p POBA each ADDTL Vessel - Gil Quach MD s IVUS Coronary Single Vessel - Gil Quach MD Ordered Studies 12/05/24 11:26 CT for pulmonary embolism PE FINDINGS: Inspiration is shallow. There is mild dependent atelectasis lung bases. No other consolidation or pleural effusion. No pneumothorax. No enlarged adenopathy. No thoracic aortic aneurysm. There are coronary artery calcifications. No pulmonary embolism seen. No acute osseous findings. IMPRESSION: No pulmonary embolism seen. 12/05/24 14:50 MR cervical spine wo con MR thoracic spine wo con FINDINGS: No significant vertebral body height loss. No significant spondylolisthesis. There is straightening of the usual cervical lordosis. Bone marrow signal is unremarkable, noting a small intraosseous hemangioma in T2 vertebral body. The spinal cord bulk is normal. There are multilevel degenerative changes of the cervical spine as below: C2-3: Mild disc osteophyte complex, bilateral facet and uncovertebral hypertrophy. No significant spinal canal or neural foraminal narrowing. C3-4: Disc osteophyte complex, bilateral facet and uncovertebral hypertrophy. These changes result in moderate narrowing of the spinal canal with mass effect being exerted upon the cervical cord that is flattened. Severe left and moderate to severe right neural foraminal narrowing. C4-5: Disc osteophyte complex that is eccentric to the left, bilateral facet and uncovertebral hypertrophy. These changes result in mild narrowing of the spinal canal, severe left and moderate to severe right neural foraminal narrowing. C5-6: Disc osteophyte complex that is eccentric to the right, bilateral facet and uncovertebral hypertrophy. These changes result in mild narrowing of the spinal canal, moderate left and severe right neural foraminal narrowing. C6-7: Disc osteophyte complex that is eccentric to the left, bilateral facet and uncovertebral hypertrophy. These changes result in mild narrowing of the spinal canal, severe left and moderate to severe right neural foraminal narrowing. C7-T1: Disc osteophyte complex, bilateral facet and uncovertebral hypertrophy. These changes result in mild narrowing of the spinal canal, severe and moderate bilateral neural foraminal narrowing. IMPRESSION: Advanced and diffuse multilevel degenerative changes of the cervical spine as above. FINDINGS: Intervertebral Discs: Multi-level mild disc dessication. No evidence of nerve root compression or spinal cord compression. No arthropathy of the uncovertebral and zygapophyseal joints in visualized images. Facet Joints: Normal appearance of the facet joints. No evidence of facet arthropathy or significant degenerative changes. Vertebrae: Normal alignment of the thoracic vertebrae. No fractures, lytic or sclerotic lesions. Normal bone marrow signal intensity besides redemonstrated small bony hemangiomas at T2, T7 and T9. [id number] analysis: C7-T1: No significant disc pathology. Normal ligamentum flava morphology, no arthropathy of the facet joints, and no significant spinal canal stenosis. T1-T2: No significant disc pathology. Normal ligamentum flava morphology, no arthropathy of the facet joints, and no significant spinal canal stenosis. T2-T3: Diffuse disc bulge extending approximately 2.3 mm posteriorly, causing mild narrowing of the spinal canal and mild to moderate narrowing of bilateral neural foramina. T3-T4: Mild diffuse disc bulge extending approximately 1.6 mm posteriorly, causing indentation on the anterior thecal sac. The spinal canal and neural foramina are normal. T4-T5: Mild diffuse disc bulge extending approximately 1.8 mm posteriorly, causing indentation on the anterior thecal sac. The spinal canal and neural foramina are normal. T5-T6: Diffuse disc bulge extending approximately 2.2 mm posteriorly, causing indentation on the anterior thecal sac. The spinal canal and neural foramina are normal. T6-T7: Diffuse disc bulge extending approximately 2.3 mm posteriorly, causing indentation on the anterior thecal sac. The spinal canal and neural foramina are normal. T7-T8: Diffuse disc bulge (3.8 mm) causing indentation of thecal sac and mild spinal canal narrowing. Normal ligamentum flava morphology, no arthropathy of the facet joints. Normal ligamentum flava morphology, no arthropathy of the facet joints. T8-T9: No significant disc pathology. Normal ligamentum flava morphology, no arthropathy of the facet joints, and no significant spinal canal stenosis. T9-T10: Broad-based disc protrusion (5.1 mm) with predominantly left paracentral component, seen causing moderate spinal canal narrowing. A slight extruded component seen extending caudally. Increased. Normal ligamentum flava morphology, no arthropathy of the facet joints, and no significant spinal canal stenosis. T10-T11: There is thickening of left-sided ligamentum flavum, causing mild to moderate narrowing. Stable. No significant disc pathology. No arthropathy of the facet joints. T11-T12: Fused disc bulge extending approximately 2.8 mm posteriorly causing indentation on the anterior thecal sac. Spinal canal and neural foramina are normal. T12:L1: Focal left para-central disc bulge (3.0 mm) causing mild left neural foraminal stenosis. Radial tear in annulus fibers. Normal ligamentum flava morphology, no arthropathy of the facet joints, Spinal Cord: Normal signal intensity and morphology of the spinal cord. No evidence of intrinsic cord lesions, syrinx, or abnormal signal changes. Soft Tissues: Normal appearance of the paraspinal soft tissues. No abnormal masses, fluid collections, or signs of inflammation. Thoracic Kyphosis: Normal thoracic kyphosis without abnormal curvature. IMPRESSION: 1. Thoracic spondylosis with multi-level degenerative discs. Progression of T9-10 disc protrusion, now seen causing moderate spinal canal stenosis. Extruded component also seen extending caudally in the current images. Overall, interval progression in this degenerative disease process. 2. No compression of the spinal cord or nerve roots. Multivessel coronary artery disease - Calcified, diffuse prox-mid LAD disease up to 90% at takeoff of D2 40-50% mid RCA. 60-70% ostial RPDA. 40-50% ostial RPAV 2. Normal intracardiac filling pressure 3. Successful PCI of proximal to mid LAD with single drug-eluting stent (3.0 x 26 mm [place]; postdilated with 4.0 NC). -- Angioplasty of jailed ostialproximal second diagonal Hospital Course (1) Left-sided chest pain: (2) Acute pain of left shoulder: (3) Severe obstructive sleep apnea: (4) Dyslipidemia: (5) Depression: Plan 54 year old male with PMH significant for dyslipidemia, KELLEE on CPAP, and depression who presented to the ED on 12/05/2024 with chest pain and left shoulder pain. An EKG and stress ECHO without evidence of ischemia was identified. Troponin was negative x2. Cardiology was consulted and recommended additional testing including a cardiac cath which was performed on 12/06 where he was identified to have multivessel CAD s/p successful PCU of LAD with single XIOMY under the care of Dr. Quach. He was loaded with Plavix in the labor conciliator and was advised to continue DAPT treatment x 6 months and cardiology follow up within 2- 4 weeks. Separately, he was experiencing acute onset of pain on 12/04 with no history of injury, changes locations, not reproducible, no alleviating factors identified. Given his history of back surgery obtained MRI cervical and thoracic spine Cervical spine MRI revealed advanced and diffuse multilevel degenerative changes of the cervical spine with moderate to severe neural foraminal narrowing from C3-T1 Thoracic spine MRI revealed thoracic spondylosis with multi-level degenerative discs; progression of T9-10 disc protrusion, now seen causing moderate spinal canal stenosis Given the new stent placed and need for dual antiplatelet therapy; this condition can be addressed as an outpatient. It is recommended to manage his symptoms conservatively until established care as an outpatient with orthopedic spine . Mr. Chamorro was discharged home in stable condition from the hospital. Total Time Total Time Spent Total Time Spent (In Minutes): I spent a total of 48 minutes coordinating, documenting, and providing care for this patient excluding time spent inthe performance of separately billed services or time spent by another provider/QHP. Discharge Plan Discharge Items Patient Disposition: Home - Self-Care Reason For Visit: CP Discharge Diagnosis: CAD Condition on Discharge: Serious Activity: Resume your previous activity Non-emergency contact: Primary Care Provider and Blueprint Cutter Call non-emergency contact if: you have any medication questions and your pain is unusual for you Follow-up/Referrals: Ruben Chang DO [Blueprint Cutter] - (The office will call you with a follow up appointment.) Kan Cunningham MD [Primary Care Provider] - (Date & Time 12/11/2024 10:20 AM Provider: Kan Cunningham MD [facility] ) Diet: Heart Healthy Addtl Attending Provider Instructions: Mr. Chamorro, Kael presented to the [facility] with persistent chest pain with shortness of breath that you have been experiencing for approximately one month. It worsened on December 04 when you presented to the emergency room. An ECG and echocardiogram were obtained without evidence of lack of blood flow to your heart. A troponin level was drawn and negative twice, which was normal. A chest CT was obtained negative for pulmonary embolism (clots in your lungs) but did reveal coronary artery calcifications. The cardiac catheterization team was consulted and you underwent a successful PCI (percutaneous coronary intervention) with a single drug eluting stent under the care of Dr. Quach on December 06. Regarding your left shoulder pain; a cervical spine MRI revealed advanced and diffuse multilevel degenerative changes of the cervical spine with moderate to severe neural foraminal narrowing from C3-T1. Thoracic spine MRI revealed thoracic spondylosis with multi-level degenerative discs; progression of T9-10 disc protrusion, now seen causing moderate spinal canal stenosis. Given that you will require six months of dual antiplatelet treatment, conservative treatment and outpatient follow up for medical management. MEDICATION CHANGES: 1. You were started on Plavix 75 mg and will take this daily unless otherwise instructed by cardiology 2. You will continue taking a baby aspirin daily. Together Plavix and Aspirin make up dual antiplatelet therapy. You will continue with dual antiplatelet therapy for six months and continue taking your statin medication as well. IMAGING STUDIES: CXR: 12/05/24: IMPRESSION: 1. Blunting of the left costophrenic angle, which might be mild effusion and/or secondary to adhesion. Interval new. 2. Cardiomegaly. 12/05/24: Chest CTA: IMPRESSION: No pulmonary embolism seen. Cervical Spine MRI: 12/05/24: IMPRESSION: Advanced and diffuse multilevel degenerative changes of the cervical spine as above. Thoracic Spine MRI: 12/05/24: IMPRESSION: 1. Thoracic spondylosis with multi-level degenerative discs. Progression of T9-10 disc protrusion, now seen causing moderate spinal canal stenosis. Extruded component also seen extending caudally in the current images. Overall, interval progression in this degenerative disease process. 2. No compression of the spinal cord or nerve roots. RECOMMENDATIONS FOR FOLLOW-UP: 1. You have a follow up appointment arranged with your primary care provider for December [address] Cunningham as outlined above. 2. Cardiology would like to see you as a follow up also; they will be arranging their own follow up and will contact you. 3. You will need to receive a referral from [facility] prior to being seen; given that you will require six months of dual antiplatelet treatment, concervative treatment and outpatient follow up for medical management. OTHER INSTRUCTIONS: Seek medical attention if you have: * temperature above 101 * chest pain or trouble breathing * abdominal pain, nausea, vomiting * diarrhea, dark stools or bloody stools * any unanswered questions or concerns Call 911 if symptoms are severe. Please take good care of yourself. It has been a pleasure taking care of you. Please take care of yourself. If you have any questions regarding your recent hospitalization please contact [facility] and request Reed Singh @ [phone]. Addtl Loan Closer Provider Instructions: ACTIVITY RECOMMENDATIONS from Cardiology: It is common to feel weak and fatigue for a few days. * Do not drive or operate any motorized equipment for the next three days. * Limit stair usage (2 or 3 trips a day only) for the next three days. * Do not lift anything heavier than 10 pounds for the next three days. * Do not engage in vigorous exercise or any sports for the next five days. * You may shower the day after your procedure, but do not immerse the area for three days. Cleanse the site gently with soap and water. SPECIAL CARE INSTRUCTIONS: * You may replace the pressure dressing or band-aid the morning after the procedure. * After your procedure, it is normal to have a small bruise or small lump at the site. Examine your site daily for any change in the bruise or lump, redness, swelling, drainage or numbness. Notify your doctor if any change. BLEEDING: * If there is a small amount of bleeding at the site, lie down and apply firm pressure with a clean cloth for ten minutes. When the bleeding stops, lie quietly keeping the procedure limb straight for six hours. Notify your doctor as soon as possible. * If the bleeding does not stop after ten minutes or if there is a large amount of bleeding or spurting, call 911 immediately. Continue to lie down and hold firm pressure until help arrives. SKIN IRRITATION: * You may experience some redness and/or swelling in the area where radiation was administered. If any skin irritation occurs, please contact your family physician. Pending Studies at Discharge: No Stand-Alone Forms: My [facility], Smoking Cessation Medications and DC Order Prescriptions: New clopidogrel 75 mg Tablet 75 mg PO QAM Qty: 30 0RF aspirin 81 mg Tablet,Delayed Release (Dr/Ec) 81 mg PO HS Qty: 30 0RF nitroglycerin [Nitrostat] 0.4 mg Tablet, Sublingual 0.4 mg sublingual Q5M PRN (Reason: chest pain ) Qty: 7 0RF Continued rosuvastatin 20 mg tablet 20 mg PO DAILY venlafaxine 75 mg tablet 75 mg PO HS venlafaxine 75 mg tablet 150 mg PO QAM Discharge Orders: Discharge Order (Routine); Ordered 12/07/24 Ordered By: Kennedi Rhodes/Other Patient Handouts: Prediabetes, 5 Steps for Eating Healthier, Coronary Angioplasty Stenting Dc Admission Data Admit Date/Time: 12/06/24 16:18 Attending Provider: Jacinta Bray Admit Provider: Marcell Johnson Primary Care Provider: Kan Cunningham Other Providers: Marcell Johnson; Nando Diallo Other Interventions: Discharge Summary Assessment (RN) Last Done: 12/07/24 13:32 Supervising Physician Co-Signing Physician Notes Attending addendum: The patient was seen and examined in telemetry unit He complains to have some pain in the precordium and also at the back over the lower end of the scapula Active movements of the left shoulder joint did not produce much pain Pain is worse with prolonged standing and doing some activities Denies any shortness of breath or palpitation On examination Remains stable weight without any acute distress Hemodynamically stable Chest was clear to auscultation bilaterally Minimal tenderness noted at the lower end of the left scapula No precordial tenderness HeartS1-S2, regular Abdomenbenign CNSalert, awake and oriented x 3 His labs, medications and imaging studies were reviewed Underwent stress echo which was unequivocal and required further testing Appreciate cardiology input and recommendation CTA did not show any pulmonary embolism but showed calcium burden in coronaries Will get MRI of the cervical and thoracic spine to rule out any nerve entrapment Possible cardiac cath tomorrow Agree with assessment plan as outlined above by Elisabet THOMAS and take the full responsibility of care in the hospital DR Idania Bray 12/06/2024 The patient was seen and examined in telemetry unit in presence of the family members He is status postcardiac cath and successful PCI with XIOMY placement in LAD Denies any chest pain, shortness of breath or palpitation following the procedure Denies any other significant symptoms He remains hemodynamically stable Systemic examination remains unremarkable His labs and other imaging studies reviewed CAD status post And successful stent placement as above Multilevel cervical spine disease with left orthospine evaluation Agree with assessment and plan as outlined above by Elisabet THOMAS and take the full responsiility of care in the hospital DR Idania Bray 12/07/2024 The patient was seen and examined in the medical unit He has been doing much better denies any significant symptoms Remains hemodynamically stable on examination System examination remain unremarkable His labs and medications reviewed CAD status post successful stent placement which remains stable on current medications Agree with assessment plan as outlined above by WILLIAM Fisher and take the full responsibility of care in the hospital DR Idania Bray
--- NOTE | 2024-12-07 12:32 | Cardiology Progress Note ---
Date of Service December 07, 2024 Assessment & Plan (1) Status post insertion of drug-eluting stent into left anterior descending (LAD) artery: (2) Equivocal stress echocardiogram: (3) Dyslipidemia: (4) Severe obstructive sleep apnea: Plan Natural history and pathophysiology of coronary artery disease and XIOMY implantation reviewed. Discussed importance of continuing dual antiplatelet therapy uninterrupted for minimum of 6 months post percutaneous intervention. Patient voiced understanding. Continue high intensity statin therapy with rosuvastatin 20 mg daily. Cardiology follow-up in 2 to 4 weeks. No further inpatient cardiac testing or intervention recommended at this time. Post cardiac catheterization activity restrictions listed below. ACTIVITY RECOMMENDATIONS: It is common to feel weak and fatigue for a few days. * Do not drive or operate any motorized equipment for the next three days. * Limit stair usage (2 or 3 trips a day only) for the next three days. * Do not lift anything heavier than 10 pounds for the next three days. * Do not engage in vigorous exercise or any sports for the next five days. * You may shower the day after your procedure, but do not immerse the area for three days. Cleanse the site gently with soap and water. SPECIAL CARE INSTRUCTIONS: * You may replace the pressure dressing or band-aid the morning after the procedure. * After your procedure, it is normal to have a small bruise or small lump at the site. Examine your site daily for any change in the bruise or lump, redness, swelling, drainage or numbness. Notify your doctor if any change. BLEEDING: * If there is a small amount of bleeding at the site, lie down and apply firm pressure with a clean cloth for ten minutes. When the bleeding stops, lie quietly keeping the procedure limb straight for six hours. Notify your doctor as soon as possible. * If the bleeding does not stop after ten minutes or if there is a large amount of bleeding or spurting, call 911 immediately. Continue to lie down and hold firm pressure until help arrives. SKIN IRRITATION: * You may experience some redness and/or swelling in the area where radiation was administered. If any skin irritation occurs, please contact your family physician. FOLLOW UP VISIT: Keep any scheduled doctor appointments. Admission and Anticipated Discharge Date Admission Date: December 06, 2024 Subjective 54-year-old male seen and examined at the bedside. Denies chest pain or shortness of breath. Tolerating medications. Drug-eluting stent implanted to left anterior descending artery 12/06/2024 without complication. RPDA stenosis managed medically. Telemetry reveals sinus rhythm 60s to 70s with occasional PACs. Review of Systems Review of Systems: All systems reviewed & are unremarkable except as noted in Subjective Physical Exam Constitutional: well nourished; no acute distress Respiratory: no respiratory distress and no labored breathing Auscultation: no crackles, no rales, no rhonchi and no wheezes Cardiovascular: Rate/Rhythm: regular rate and regular rhythm Heart Sounds: normal S1 and normal S2; no murmur Vessels: no JVD and no carotid bruit Extremities: no edema Gastrointestinal (Abdomen): Inspection/Auscultation: normal bowel sounds; abdomen not distended Percussion/Palpation: abdomen soft; abdomen nontender and abdomen not rigid Neurologic: CN's II-XI intact bilaterally and moves all extremities Results & Data Vital Signs (Past 12 Hours) Vital Signs Temp Pulse Pulse Resp BP Pulse Ox O2 Del Method 12/07/24 09:32 36.7 C 71 19 119/75 93 Room Air 12/07/24 07:00 70 12/07/24 04:33 36.4 C L 66 18 148/92 H 96 CPAP Laboratory Results CBC 12/07/24 Range/Units 05:49 WBC 7.25 (4.8-10.8) K/ul RBC 4.75 (4.70-6.10) M/uL Hgb 14.3 (14.0-18.0) g/dl Hct 42.6 (42.0-52.0) % Plt Count 203 (130-400) K/uL Comprehensive Metabolic Panel 12/07/24 Range/Units 05:49 Sodium 140 (136-145) mmol/L Potassium 4.2 (3.5-5.1) mmol/L Chloride 106 (98-107) mmol/L Carbon Dioxide 29 (21-32) mmol/L BUN 10 (6-23) mg/dl Creatinine 0.94 (0.6-1.4) mg/dl Glucose 97 (70-99(Fasting)) mg/dl Calcium 8.4 L (8.6-10.3) mg/dl Intake and Output 12/06/24 12/07/24 12/07/24 22:59 06:59 14:59 Intake Total 460 / 2453.75 993.75 / 2453.75 Output Total Balance 459 / 2452.75 993.75 / 2452.75 Intake: IV 993.75 / 1993.75 Sodium Chloride 0.9% 1,000 ml @ 993.75 / 993.75 75 mls/hr IV .[id number] ALEN Rx#: [id number] Oral 460 / 460 Output: # Bowel Movements Other: # Unmeasured Voids 2 2 Weight 116.6 kg Weight Measurement Method Built in [facility] Care Time/CCT Total # of Minutes Spent Total Time Spent with Patient: Total time spent is greater than 50% in coordination of care (as documented) at patient's floor/unit and/or counseling patient: Coding Level of Care Code 14014 SUB INP/OBS CARE 3/50MIN Diagnoses Status post insertion of drug-eluting stent into left anterior descending (LAD) artery Z95.5 Equivocal stress echocardiogram R93.1 Dyslipidemia E78.5 Severe obstructive sleep apnea G47.33
[2024-12-07 12:42] VITALS: BP 152/99; PULSE 82; RESP 18; TEMP 98.6
--- NOTE | 2024-12-09 15:42 | Electrocardiogram Report ---
Test Reason : Blood Pressure : */* mmHG Vent. Rate : 66 BPM Atrial Rate : 66 BPM P-R Int : 176 ms QRS Dur : 86 ms QT Int : 412 ms P-R-T Axes : 23 50 37 degrees QTcB Int : 431 ms Normal sinus rhythm Normal ECG When compared with ECG of 05-Dec-2024 01:20, No significant change was found Confirmed by Fabián Menjivar ([id number]) on 12/09/2024 3:42:30 PM Referred By: REFERRED SELF Confirmed By: Faibán Menjivar
== END 2024-12-07 14:22 | disposition home or self-care (01) | DRG 322 ==
LOC: ED 01:13 → 4W 01:13 → SUATTDRO 04:54 → 4W 05:34

== ENCOUNTER 2024-12-24 18:44 | Observation (INO) ==
[2024-12-24 19:15] LABS: Hematocrit (blood only) 42.0 % (42.0-52.0); Hemoglobin 14.5 g/dl (14.0-18.0); Immature Granulocytes # (auto) 0.01 K/uL (0.01-0.20); Immature Granulocytes % (auto) 0.1 %; Mean Corpuscular Hemoglobin 30.6 pg (25.0-34.0); Mean Corpuscular Volume 88.6 fL (80.0-100.0); Platelet Count 228 K/uL (130-400); RDW Standard Deviation 43.1 fL (36.4-46.3); Red Blood Count 4.74 M/uL (4.70-6.10); White Blood Count 7.30 K/ul (4.8-10.8)
[2024-12-24 19:31] LABS: Chloride 104.0 mmol/L (98-107); Potassium 4.0 mmol/L (3.5-5.1); Sodium 140.0 mmol/L (136-145)
[2024-12-24 19:42] LABS: INR 1.0 (0.9-1.1); Partial Thromboplastin Time 26 Seconds (21-31); Prothrombin Time 10.7 Seconds (9.0-12.0)
--- NOTE | 2024-12-24 20:25 | XRay Report ---
EXAM: XR chest 1V not portable CLINICAL HISTORY: Chest pain, nonspecific TECHNIQUE: An X-ray image of the chest is obtained in AP projection. COMPARISON: comparison with the previous study dated 12/05/2024. FINDINGS: Pulmonary Parenchyma: Lungs are clear bilaterally. No evidence of consolidation, collapse, or focal opacities. No pulmonary nodules are identified. No evidence of pleural effusion or pleural thickening. Heart and Mediastinum: Heart size and shape are normal. No mediastinal widening or masses. No hilar or mediastinal lymphadenopathy. Bony Thorax: Bony thorax appears intact without fractures or deformities. Soft Tissues: Soft tissues overlying the chest wall are unremarkable. IMPRESSION: 1. No acute cardiopulmonary abnormalities are identified. 2. Non-visualization of the previously noted minimal left-sided pleural effusion. Electronically signed by Rj Billingsley 12-24-2024 8:25 PM
[2024-12-24 20:39] LABS: Anion Gap 10.0 (3-11); Bilirubin,Total 0.3 mg/dl (0.2-1.0); Calcium 9.2 mg/dl (8.6-10.3); Carbon Dioxide 26.0 mmol/L (21-32)
[2024-12-24 20:45] LABS: Alanine Aminotransferase 25.0 U/L (7-52); Albumin Globulin Ratio 1.2 (0.9-2); Alkaline Phosphatase 61.0 U/L (34-104); Blood Urea Nitrogen 15.0 mg/dl (6-23); Creatinine Clr Calc Pharmacy 95.1 ml/min; Globulin 3.4 gm/dl (2.5-4.0); Glucose 150.0 mg/dl (70-99(Fasting)); Total Protein 7.4 gm/dl (6.0-8.3)
[2024-12-24] MEDS: NITROGLYCERIN 2% OINTMENT 30GM TUBE EXT ONE (21:46)
--- NOTE | 2024-12-24 21:51 | Emergency Department Note ---
History of Present Illness General Chief complaint: Chest Pain Stated complaint: CHEST PAIN Time Seen by Provider: 12/24/24 21:28 History of Present Illness Maximum Pain Intensity: 7 This a 54-year-old male presenting to the emergency department for evaluation of chest pain. Patient has recent history of 90% LAD lesion that was stented about 2-1/2 weeks ago. The patient he did some light yard work today, came inside, and felt very hot and flushed. He began having chest pain and some difficulty breathing, took nitroglycerin, and this may have helped his chest discomfort about 80%. The patient has not had fevers or chills. He is scheduled with outpatient cardiology, but has not had his post cath outpatient visit. No fevers or chills. No recent travel. He rates his discomfort a 7/10. Pain does not radiate. Home Medications Medication Instructions Recorded Confirmed Type rosuvastatin 20 mg tablet 20 mg PO QPM 12/05/24 12/24/24 History venlafaxine 75 mg tablet 75 mg PO HS 12/05/24 12/24/24 History venlafaxine 75 mg tablet 150 mg PO QAM 12/05/24 12/24/24 History clopidogrel 75 mg tablet 75 mg PO QAM #30 tabs 12/07/24 12/24/24 Rx nitroglycerin 0.4 mg sublingual 0.4 mg sublingual Q5M PRN chest 12/07/24 12/24/24 Rx tablet (Nitrostat) pain #7 tabs aspirin 81 mg tablet,delayed 81 mg PO QAM 12/24/24 12/24/24 History release Allergies Allergy/AdvReac Type Severity Reaction Status Date / Time prednisone AdvReac Intermediate Pt states Verified 12/06/24 07:40 "I get mean", AGGRESSIVE Past Med/Surg History Problem List (Updated 12/25/24 @ 04:05 by Nando Rojas PA-C) Status post insertion of drug-eluting stent into left anterior descending (LAD) artery (Acute) Degenerative disc disease, cervical Equivocal stress echocardiogram BROWN (dyspnea on exertion) Depression Dyslipidemia Acute pain of left shoulder (Acute) Left-sided chest pain (Acute) Chest pain Severe obstructive sleep apnea Medical History Sore throat Back pain Ureteral calculus Renal colic Thoracic back pain COVID-19 Intractable back pain Bulging discs Nocturnal hypoxemia Surgical History History of lumbar surgery S/P arthroscopic knee surgery Social History Smoking Status: Never smoker Second Hand Exposure: No; Do You Dip or Chew Tobacco: No; Hx Alcohol Use: Yes Alcohol type: beer Hx Substance Use: No Preferred Language: Japanese Communication Ability: Effective Vice President Quality Required: No Beliefs That Will Affect Care: None Current Living Situation: Spouse Other Information That Helps Us Care for You: No Feels Safe at Home: Yes Safety Concerns: Feels Safe At This Time Assistive Devices: CPAP Review of Systems A total of 10 systems reviewed and were otherwise negative Physical Exam Vital Signs Vital Signs - 24 hr 12/24/24 18:49 12/24/24 21:00 12/24/24 21:30 Temperature 36.5 C Temperature Source Skin Pulse Rate 101 H 77 73 Pulse Rate from SpO2 Sensor Pulse Rhythm Regular Pulse Strength Normal Respiratory Rate 20 16 Respiratory Effort / Characteristics Non-Labored Spontaneous Respiratory Depth Normal Respiratory Pattern Regular Blood Pressure 157/83 H 125/90 121/82 Blood Pressure Mean 107 94 93 Pulse Oximetry 91 95 94 Oxygen Delivery Method Room Air Oxygen Flow Rate Sepsis Recent Fever Within 48 Hours No Sepsis New/Unexplained Change in Mental Status N/A Sepsis Action Taken by Nursing No Action Required 12/24/24 21:41 12/24/24 21:41 12/24/24 22:00 Temperature Temperature Source Pulse Rate 68 74 Pulse Rate from SpO2 Sensor Pulse Rhythm Regular Pulse Strength Respiratory Rate 18 18 Respiratory Effort / Characteristics Respiratory Depth Respiratory Pattern Blood Pressure 128/87 Blood Pressure Mean 92 Pulse Oximetry 98 98 93 Oxygen Delivery Method Room Air Room Air Oxygen Flow Rate 0 Sepsis Recent Fever Within 48 Hours Sepsis New/Unexplained Change in Mental Status Sepsis Action Taken by Nursing 12/24/24 22:30 12/24/24 22:30 12/24/24 23:09 Temperature Temperature Source Pulse Rate 76 74 85 Pulse Rate from SpO2 Sensor 85 Pulse Rhythm Pulse Strength Respiratory Rate 19 18 23 Respiratory Effort / Characteristics Respiratory Depth Respiratory Pattern Blood Pressure 116/84 116/84 126/78 Blood Pressure Mean 92 92 94 Pulse Oximetry 94 93 94 Oxygen Delivery Method Room Air Oxygen Flow Rate Sepsis Recent Fever Within 48 Hours Sepsis New/Unexplained Change in Mental Status Sepsis Action Taken by Nursing 12/24/24 23:11 12/24/24 23:30 Temperature Temperature Source Pulse Rate 85 77 Pulse Rate from SpO2 Sensor 85 77 Pulse Rhythm Pulse Strength Respiratory Rate 16 22 Respiratory Effort / Characteristics Respiratory Depth Respiratory Pattern Blood Pressure 126/78 125/77 Blood Pressure Mean 94 94 Pulse Oximetry 93 94 Oxygen Delivery Method Room Air Room Air Oxygen Flow Rate Sepsis Recent Fever Within 48 Hours Sepsis New/Unexplained Change in Mental Status Sepsis Action Taken by Nursing VITALS: Vitals are noted on the nurse's note and reviewed by myself. Vital signs stable. GENERAL: Well-developed, well-nourished, white male, who is in no acute distress and resting comfortably. Patient is cooperative with the examination. HEAD: Normocephalic atraumatic. EARS: External ear normal. External auditory canals clear, tympanic membranes pearly cohen without erythema or effusion bilaterally. EYES: Pupils equal round and reactive to light and accommodation. Conjunctivae without injection, sclerae without icterus. Extraocular movements intact. NOSE: Patent, turbinates without inflammation or discharge. MOUTH: Mucous membranes moist. Pharynx without erythema, blood, or exudate. Uvula midline. Airway patent. NECK: Supple without nuchal rigidity. No lymphadenopathy. No thyromegaly. Cervical spine is nontender. HEART: Regular rate and rhythm without murmurs gallops or rubs. LUNGS: Clear to auscultation bilaterally without wheezes, rales or rhonchi. No retractions or accessory muscle use. Course Administered Medications Lactated Ringer's (Lr) 1,000 mls @ 60 mls/hr IV .[id number] STA Stop: 12/25/24 17:03 Last Admin: 12/25/24 01:09 Dose: 60 mls/hr Documented By: STEPH Rosuvastatin Calcium (Rosuvastatin Calcium 20 Mg Tab) 20 mg PO QPM ALEN Stop: 01/24/25 01:29 Last Admin: 12/25/24 01:45 Dose: 20 mg Documented By: STEPH Venlafaxine HCl (Venlafaxine Hcl Xr 75 Mg Capxr) 75 mg PO HS ALEN Stop: 01/24/25 01:29 Last Admin: 12/25/24 01:45 Dose: 75 mg Documented By: STEPH Discontinued Medications Nitroglycerin (Nitroglycerin 2% Ointment 30gm Tube) 1 inch EXT NOW ONE Stop: 12/24/24 21:39 Last Admin: 12/24/24 21:46 Dose: 1 inch Documented By: DARIUS Oxycodone HCl (Oxycodone Hcl Ir 5 Mg Tab (Immediate Release)) 5 mg PO NOW STA Stop: 12/25/24 00:18 Last Admin: 12/25/24 01:09 Dose: 5 mg Documented By: STEPH Medical Decision Making Differential Diagnosis differential diagnosis includes, but is not limited to: Myocardial infarction, dysrhythmia, pericarditis, pneumothorax, aortic aneurysm/dissection, DVT/PE, anxiety, GERD, PUD, electrolyte imbalance, thyroid disorder, pneumonia, bronchitis, pancreatitis, and others Laboratory Data 12/24/24 18:56 12/24/24 18:56 Lab Results 12/24/24 12/24/24 Range/Units 18:56 23:42 WBC 7.30 (4.8-10.8) K/ul RBC 4.74 (4.70-6.10) M/uL Hgb 14.5 (14.0-18.0) g/dl Hct 42.0 (42.0-52.0) % MCV 88.6 (80.0-100.0) fL MCH 30.6 (25.0-34.0) pg MCHC 34.5 (32.0-36.0) g/dL RDW Std Deviation 43.1 (36.4-46.3) fL RDW Coeff of Elizabeth 13.1 (11.5-14.5) % Plt Count 228 (130-400) K/uL MPV 10.9 (9.4-12.4) fL Immature Gran % (Auto) 0.1 % Neut % (Auto) 58.0 % Lymph % (Auto) 33.2 % Freestone % (Auto) 6.0 % Eos % (Auto) 2.3 % Baso % (Auto) 0.4 % Neut # (Auto) 4.23 (1.40-6.50) K/uL Lymph # (Auto) 2.42 (1.20-3.40) K/uL Freestone # (Auto) 0.44 (0.11-0.59) K/uL Eos # (Auto) 0.17 (0.00-0.50) K/uL Baso # (Auto) 0.03 (0.00-0.20) K/uL Immature Gran # (Auto) 0.01 (0.01-0.20) K/uL PT 10.7 (9.0-12.0) Seconds INR 1.0 (0.9-1.1) APTT 26 (21-31) Seconds PTT Ratio 1.0 Sodium 140 (136-145) mmol/L Potassium 4.0 (3.5-5.1) mmol/L Chloride 104 (98-107) mmol/L Carbon Dioxide 26 (21-32) mmol/L Anion Gap 10 (3-11) BUN 15 (6-23) mg/dl Creatinine 1.09 (0.6-1.4) mg/dl Est Cr Clr Drug Dosing 95.1 ml/min eGFR 79.65 BUN/Creatinine Ratio 13.8 (10-20) Glucose 150 H (70-99(Fasting)) mg/dl Calcium 9.2 (8.6-10.3) mg/dl Total Bilirubin 0.3 (0.2-1.0) mg/dl AST 22 (13-39) U/L ALT 25 (7-52) U/L Alkaline Phosphatase 61 (34-104) U/L Total Creatine Kinase 205 (30-223) U/L Troponin I High Sens 7.0 7.9 (0-20) pg/ml Total Protein 7.4 (6.0-8.3) gm/dl Albumin 4.0 (3.4-5.0) gm/dl Globulin 3.4 (2.5-4.0) gm/dl Albumin/Globulin Ratio 1.2 (0.9-2) Imaging Data Radiologist's Impression: Chest X-Ray 12/24/24 18:52 EXAM: XR chest 1V not portable CLINICAL HISTORY: Chest pain, nonspecific TECHNIQUE: An X-ray image of the chest is obtained in AP projection. COMPARISON: comparison with the previous study dated 12/05/2024. FINDINGS: Pulmonary Parenchyma: Lungs are clear bilaterally. No evidence of consolidation, collapse, or focal opacities. No pulmonary nodules are identified. No evidence of pleural effusion or pleural thickening. Heart and Mediastinum: Heart size and shape are normal. No mediastinal widening or masses. No hilar or mediastinal lymphadenopathy. Bony Thorax: Bony thorax appears intact without fractures or deformities. Soft Tissues: Soft tissues overlying the chest wall are unremarkable. IMPRESSION: 1. No acute cardiopulmonary abnormalities are identified. 2. Non-visualization of the previously noted minimal left-sided pleural effusion. Electronically signed by Rj Billingsley 12-24-2024 8:25 PM ECG Data Attestation: I personally reviewed and interpreted this ECG as follows: Indication: + chest pain Additional Comments: Normal sinus rhythm at [address] elevation No significant change from previous MDM Narrative Physical exam and history were performed. Nursing notes, EMR, and Medication List were personally reviewed. No social concerns were identified as barriers to patients care. History was provided by the Patient and significant other who is at bedside. Patient appears to have chest pain bring him to the ER. Patient was seen during a period of very high ER volume and acuity with extended wait times. Nursing protocol order have been performed and some of these are available for my review at the time of patient encounter. Patient seems to have chest pain with recent stenting. He did have improvement of symptoms prehospital with nitro, and was given Nitropaste here in the ER. Patient's blood work is as above and was reviewed. He does not have significant elevated white blood cell count, gross anemia, bandemia, or significant electrolyte imbalance. Transaminases not diagnostic. Troponin x 1 is negative. Chest x-ray reviewed by myself and radiology showing no acute process. An order was placed for continuous cardiac monitoring. The monitor shows a rate of 70 with normal sinus rhythm. On reevaluation the patient remains in stable condition. Case was discussed with my attending. Due to his recent cardiac cath and chest pain symptoms that seem to improve with nitro, escalation of care was considered and felt to be necessary. [facility] to evaluate the patient here in the ER. Please see their dictation for further patient course, plan, and disposition. The chart was completed utilizing [employer] Speech Voice Recognition Software. Grammatical errors, random word insertions, pronoun errors, and incomplete sentences are an occasional consequence of this system due to software limitations, ambient noise, and hardware issues. Any formal questions or concerns about the content, text, or information contained within the body of this dictation should be directly addressed to the provider for clarification. Impression & Plan Status post insertion of drug-eluting stent into left anterior descending (LAD) artery, Left-sided chest pain Discharge Plan Visit Data Chief Complaint: Chest Pain Stated Complaint: CHEST PAIN ED Provider: Alfred Petersen ED Midlevel Provider: Nando Rojas Discharge Problem: Status post insertion of drug-eluting stent into left anterior descending (LAD) artery, Left-sided chest pain Patient Disposition: Admitted As Inpatient Condition: Fair Discharge Instructions Interventions: ED Discharge Assessment Last Done: 12/25/24 00:36
--- NOTE | 2024-12-24 23:48 | History & Physical Report ---
Date of Service December 24, 2024 Assessment & Plan (1) Chest pain: Plan: Assessment and plan below following discussion of case with ED provider and reviewing patient history/pertinent normal/abnormal diagnostic test results. Worsening chest pain Multivessel CAD on recent diagnostic cardiac catheterization LAD status post PCI Possible ACS hypertension, stable, patient currently not on maintenance medications, unclear why beta-debra not initiated for CAD during recent confinement hyperlipidemia, on statin Rx KELLEE on CPAP, patient compliant mood disorder, stable. Hyperglycemia secondary to prediabetes, hemoglobin A1c of 6.2 from last month Left foot pain of sudden onset, etiology to be determined LLE pain rule out DVT OBS Admit to PCU Continue aspirin and statin Rx for CAD prevention Add beta-debra to regimen if cardiology agreeable Follow troponin TTE, Cardiology consult re: chest pain N.p.o. in anticipation of ischemic procedure Plain x-ray left foot LLE venous Dopplers rule out DVT DVT prophylaxis. Lovenox subcu Full code Text document was generated using P[employer]to voice recognition software. It may contain grammatical or spelling errors. Kindly contact undersigned for clarification of any documentation item in question. History of Present Illness Chief Complaint: Chest pain Primary Care Provider: Kan Cunningham MD History obtained from patient and records. Medical history significant for CAD status post recent stent, hypertension, hyperlipidemia, KELLEE on CPAP, mood disorder. Recent confinement 2 weeks ago for multivessel CAD. Calcified, diffuse prox-mid LAD disease up to 90% at takeoff of D2, 40-50% mid RCA. 60-70% ostial RPDA. 40-50% ostial RPAV as per cath report. PCI of LAD lesion with single XIOMY done. Patient still with mild chest pain/SOB symptoms following discharge from the hospital. Patient discharged on new aspirin and statin Rx meds. Yesterday, patient noted left foot pain which later radiated to left lower leg. More pronounced bump on foot dorsum as per patient. No recollection of recent trauma. Patient experienced more intense achy chest pain going to his left arm while doing yard work today. Nonpleuritic. No cough. Some SOB. Compliant with home meds. Chest discomfort partially improved with nitroglycerin intake at home. Headache symptoms after nitro intake. Patient brought to ER by for evaluation. Medical History as above Surgical History : Urologic procedure, back surgery, knee surgery, umbilical hernia repair Family History : DM, colon cancer; negative heart disease Personal/Social history : Non-smoker, occasional EtOH intake, disabled Allergies Allergy/AdvReac Type Severity Reaction Status Date / Time prednisone AdvReac Intermediate Pt states Verified 12/06/24 07:40 "I get mean", AGGRESSIVE Home Medications Medication Instructions Recorded Confirmed Type rosuvastatin 20 mg tablet 20 mg PO QPM 12/05/24 12/24/24 History venlafaxine 75 mg tablet 75 mg PO HS 12/05/24 12/24/24 History venlafaxine 75 mg tablet 150 mg PO QAM 12/05/24 12/24/24 History clopidogrel 75 mg tablet 75 mg PO QAM #30 tabs 12/07/24 12/24/24 Rx nitroglycerin 0.4 mg sublingual 0.4 mg sublingual Q5M PRN chest 12/07/24 12/24/24 Rx tablet (Nitrostat) pain #7 tabs aspirin 81 mg tablet,delayed 81 mg PO QAM 12/24/24 12/24/24 History release Past Med/Surg History Problem List (Updated 12/25/24 @ 04:05 by Nando Rojas PA-C) Status post insertion of drug-eluting stent into left anterior descending (LAD) artery (Acute) Degenerative disc disease, cervical Equivocal stress echocardiogram BROWN (dyspnea on exertion) Depression Dyslipidemia Acute pain of left shoulder (Acute) Left-sided chest pain (Acute) Chest pain Severe obstructive sleep apnea Medical History Sore throat Back pain Ureteral calculus Renal colic Thoracic back pain COVID-19 Intractable back pain Bulging discs Nocturnal hypoxemia Surgical History History of lumbar surgery S/P arthroscopic knee surgery Social History Smoking Status: Never smoker Second Hand Exposure: No; Do You Dip or Chew Tobacco: No; Hx Alcohol Use: Yes Alcohol type: beer Hx Substance Use: No Preferred Language: [place] Communication Ability: Effective 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 Beliefs That Will Affect Care: None Current Living Situation: Spouse Other Information That Helps Us Care for You: No Feels Safe at Home: Yes Safety Concerns: Feels Safe At This Time Assistive Devices: CPAP Review of Systems Review of Systems: As per HPI, all other systems reviewed and negative Physical Exam Physical Exam: GENERAL: Comfortable, pleasant, obese, no respiratory distress SKIN: Normal color, warm HEENT: Partial alopecia, pink palpebral conjunctivae, no ptosis, moist buccal mucosa NECK : Supple, no tenderness CHEST : CTA, no tenderness HEART : RRR, no obvious murmurs ABDOMEN: Some distention, nontender EXTREMITIES : No LE swelling, minimal left foot tenderness, mobile subcutaneous mass over L foot dorsum, palpable pulses, no other conspicuous deformities noted NEUROLOGIC : Coherent, no facial asymmetry, no other gross focality Results & Data Results & Data Vital Signs (Past 12 Hours) Vital Signs Temp Pulse Resp BP Pulse Ox O2 Del Method O2 Flow Rate 12/24/24 23:11 85 16 126/78 93 Room Air 12/24/24 22:30 74 18 116/84 93 12/24/24 22:30 76 19 116/84 94 12/24/24 22:00 74 18 128/87 93 12/24/24 21:41 68 18 98 Room Air 12/24/24 21:41 98 Room Air 0 12/24/24 21:30 73 16 121/82 94 12/24/24 21:00 77 125/90 95 12/24/24 18:49 36.5 C 101 H 20 157/83 H 91 Room Air Laboratory Results Laboratory Results WBC 7.30 K/ul (4.8-10.8) 12/24/24 18:56 RBC 4.74 M/uL (4.70-6.10) 12/24/24 18:56 Hgb 14.5 g/dl (14.0-18.0) 12/24/24 18:56 Hct 42.0 % (42.0-52.0) 12/24/24 18:56 MCV 88.6 fL (80.0-100.0) 12/24/24 18:56 MCH 30.6 pg (25.0-34.0) 12/24/24 18:56 MCHC 34.5 g/dL (32.0-36.0) 12/24/24 18:56 RDW Std Deviation 43.1 fL (36.4-46.3) 12/24/24 18:56 RDW Coeff of Elizabeth 13.1 % (11.5-14.5) 12/24/24 18:56 Plt Count 228 K/uL (130-400) 12/24/24 18:56 MPV 10.9 fL (9.4-12.4) 12/24/24 18:56 Immature Gran % (Auto) 0.1 % 12/24/24 18:56 Neut % (Auto) 58.0 % 12/24/24 18:56 Lymph % (Auto) 33.2 % 12/24/24 18:56 Mcdonough % (Auto) 6.0 % 12/24/24 18:56 Eos % (Auto) 2.3 % 12/24/24 18:56 Baso % (Auto) 0.4 % 12/24/24 18:56 Neut # (Auto) 4.23 K/uL (1.40-6.50) 12/24/24 18:56 Lymph # (Auto) 2.42 K/uL (1.20-3.40) 12/24/24 18:56 Mcdonough # (Auto) 0.44 K/uL (0.11-0.59) 12/24/24 18:56 Eos # (Auto) 0.17 K/uL (0.00-0.50) 12/24/24 18:56 Baso # (Auto) 0.03 K/uL (0.00-0.20) 12/24/24 18:56 Immature Gran # (Auto) 0.01 K/uL (0.01-0.20) 12/24/24 18:56 PT 10.7 Seconds (9.0-12.0) 12/24/24 18:56 INR 1.0 (0.9-1.1) 12/24/24 18:56 APTT 26 Seconds (21-31) 12/24/24 18:56 PTT Ratio 1.0 12/24/24 18:56 Sodium 140 mmol/L (136-145) 12/24/24 18:56 Potassium 4.0 mmol/L (3.5-5.1) 12/24/24 18:56 Chloride 104 mmol/L (98-107) 12/24/24 18:56 Carbon Dioxide 26 mmol/L (21-32) 12/24/24 18:56 Anion Gap 10 (3-11) 12/24/24 18:56 BUN 15 mg/dl (6-23) 12/24/24 18:56 Creatinine 1.09 mg/dl (0.6-1.4) 12/24/24 18:56 Est Cr Clr Drug Dosing 95.1 ml/min 12/24/24 18:56 eGFR 79.65 12/24/24 18:56 BUN/Creatinine Ratio 13.8 (10-20) 12/24/24 18:56 Glucose 150 mg/dl (70-99(Fasting)) H 12/24/24 18:56 Calcium 9.2 mg/dl (8.6-10.3) 12/24/24 18:56 Total Bilirubin 0.3 mg/dl (0.2-1.0) 12/24/24 18:56 AST 22 U/L (13-39) 12/24/24 18:56 ALT 25 U/L (7-52) 12/24/24 18:56 Alkaline Phosphatase 61 U/L (34-104) 12/24/24 18:56 Troponin I High Sens 7.0 pg/ml (0-20) 12/24/24 18:56 Total Protein 7.4 gm/dl (6.0-8.3) 12/24/24 18:56 Albumin 4.0 gm/dl (3.4-5.0) 12/24/24 18:56 Globulin 3.4 gm/dl (2.5-4.0) 12/24/24 18:56 Albumin/Globulin Ratio 1.2 (0.9-2) 12/24/24 18:56 Impressions Chest X-Ray 12/24/24 18:52 EXAM: XR chest 1V not portable CLINICAL HISTORY: Chest pain, nonspecific TECHNIQUE: An X-ray image of the chest is obtained in AP projection. COMPARISON: comparison with the previous study dated 12/05/2024. FINDINGS: Pulmonary Parenchyma: Lungs are clear bilaterally. No evidence of consolidation, collapse, or focal opacities. No pulmonary nodules are identified. No evidence of pleural effusion or pleural thickening. Heart and Mediastinum: Heart size and shape are normal. No mediastinal widening or masses. No hilar or mediastinal lymphadenopathy. Bony Thorax: Bony thorax appears intact without fractures or deformities. Soft Tissues: Soft tissues overlying the chest wall are unremarkable. IMPRESSION: 1. No acute cardiopulmonary abnormalities are identified. 2. Non-visualization of the previously noted minimal left-sided pleural effusion. Electronically signed by Rj Billingsley 12-24-2024 8:25 PM Diagnostic Findings EKG as per my interpretation :Rate 75, NSR, normal axis, no ischemia
[2024-12-25] MEDS ORDERED: PROMETHAZINE 12.5 MG/50.5 ML BAG IV PRN (00:17)
[2024-12-25] MEDS ORDERED: LORazepam 0.5 MG TAB PO PRN (00:17)
[2024-12-25] MEDS ORDERED: MoRPHine SULFATE 4 MG/ML 1 ML CARP\\VIAL IV PRN (00:17)
[2024-12-25] MEDS ORDERED: NITROGLYCERIN SL 0.4 MG/TAB TAB SL PRN (00:20)
[2024-12-25 00:44] LABS: Creatine Kinase 205.0 U/L (30-223)
[2024-12-25] MEDS: LACTATED RINGER'S 1,000 ML IV STA (01:09)
--- NOTE | 2024-12-25 01:42 | XRay Report ---
EXAM: XR foot LT min 3V routine CLINICAL HISTORY: Pain. TECHNIQUE: X-ray images of the left foot were obtained in anteroposterior (AP), lateral, and oblique projections. COMPARISON: No prior studies available for comparison. FINDINGS: Bone Structure: Bone structure is normal and aligned. No evidence of fracture or dislocation. No osseous lesions or abnormalities were identified. A small detached bone fragment was seen related to the anterior aspect of the head of the talus, likely a detached osteophyte. There is a small focus of irregular calcification at the insertion of the Achilles tendon, representing insertional calcific tendinopathy Joint Spaces: Joint spaces are normal. No evidence of joint effusion or subluxation. Soft Tissues: There is mild soft tissue thickening seen at the dorsum of the foot, mainly superficial to the talonavicular joint region. A tiny metallic density foreign body shadow was seen in the soft tissue of the proximal phalanx of the second toe. Additional Findings: No signs of osteoarthritis, bone spurs, lytic or sclerotic lesions. IMPRESSION: 1. No evidence of acute fracture or dislocation. 2. A tiny metallic density foreign body shadow is seen in the soft tissue of the proximal phalanx of the second toe. 3. A small detached bone fragment is seen related to the anterior aspect of the head of the talus, likely a detached osteophyte. 4. There is a small focus of irregular calcification at the insertion of the Achilles tendon, representing insertional calcific tendinopathy. 5. There is mild soft tissue thickening seen at the dorsum of the foot, mainly superficial to the talonavicular joint region. Disclaimer: A subtle bone abnormality or fracture may not be readily apparent on X-rays, thus clinical correlation and further imaging including follow-up CT, MRI, or follow-up X-rays are advised as needed. Electronically signed by Rj Billingsley 12-25-2024 01:42 AM
[2024-12-25] MEDS: VENLAFAXINE HCL XR 75 MG CAPXR PO SCH (01:45)
[2024-12-25] MEDS: ROSUVASTATIN CALCIUM 20 MG TAB PO SCH (01:45)
--- NOTE | 2024-12-25 04:37 | Ultrasound Report ---
EXAM: US venous doppler LE LT CLINICAL HISTORY: pain TECHNIQUE: Ultrasound examination of left lower extremity veins was performed in real time and duplex. One or more of the following were performed- spectral analysis, resistive index, waveform analysis, and pulsed Doppler. COMPARISON: None. FINDINGS: Normal phasic, non-pulsatile and spontaneous flow is noted in left common femoral, superficial femoral, popliteal and posterior tibial and peroneal veins. Visualized veins of left lower extremity demonstrate normal compressibility. No sonographic evidence of acute deep vein thrombosis (DVT) is detected in the visualized veins of lower extremity. Compression and Augmentation: All evaluated veins compress fully with applied transducer pressure. Augmentation of venous flow is noted with distal compression. Additional Findings: No evidence of intraluminal thrombus. IMPRESSION: No sonographic evidence of acute DVT detected at the time of examination. Disclaimer: DVT could be missed early in the disease when clot burden is minimal. For patients with moderate and high pretest probability of DVT and negative ultrasound, the [place] [employer] clinical guidelines recommend testing with a D-dimer assay or repeat ultrasound in 5-7 days. If symptoms worsen, the Society of radiologists in ultrasound recommends repeating ultrasound even earlier. Electronically signed by Rj Billingsley 12-25-2024 04:37 AM
--- NOTE | 2024-12-25 06:21 | CT Scan Report ---
EXAM: CT foot LT wo con CLINICAL HISTORY: pain TECHNIQUE: Contiguous axial CT images of left foot were obtained without intravenous contrast. Coronal and sagittal reconstructions were likewise performed and indicated to increase the sensitivity for detecting clinically relevant pathology. CT scan was performed according to ALARA (as low as reasonably achievable). COMPARISON: none FINDINGS: Few small foci of cacification seen in Achilles tendon near calcaneal attachment. Os supratalare and os trigonum is noted. Age indeterminate undisplaced fracture of distal phalanx of 4th toe is seen. No any other acute fracture or dislocation. No destructive osseous lesion. The visualized muscles and tendons appear grossly unremarkable. No cortical destruction to suggest osteomyelitis. No abscess formation. No significant joint effusion. There are no soft tissue masses. Normal subcutaneous adipose space. IMPRESSION: 1. Few small foci of cacification seen in Achilles tendon near calcaneal attachment- possible calcific tendinitis. 2. Os supratalare and os trigonum is noted. 3. Age indeterminate undisplaced fracture of distal phalanx of 4th toe is seen. 4. No any other acute fracture or dislocation. Electronically signed by Manuel Spencer 12-25-2024 06:21 AM
[2024-12-25 07:41] LABS: Hematocrit (blood only) 40.3 % (42.0-52.0); Hemoglobin 13.4 g/dl (14.0-18.0); Immature Granulocytes # (auto) 0.01 K/uL (0.01-0.20); Immature Granulocytes % (auto) 0.2 %; Mean Corpuscular Hemoglobin 30.3 pg (25.0-34.0); Mean Corpuscular Volume 91.2 fL (80.0-100.0); Platelet Count 197 K/uL (130-400); RDW Standard Deviation 45.5 fL (36.4-46.3); Red Blood Count 4.42 M/uL (4.70-6.10); White Blood Count 5.51 K/ul (4.8-10.8)
[2024-12-25 08:00] LABS: Anion Gap 4.0 (3-11); Blood Urea Nitrogen 17.0 mg/dl (6-23); Calcium 8.7 mg/dl (8.6-10.3); Carbon Dioxide 31.0 mmol/L (21-32); Chloride 107.0 mmol/L (98-107); Creatinine Clr Calc Pharmacy 105.7 ml/min; Glucose 96.0 mg/dl (70-99(Fasting)); Potassium 3.9 mmol/L (3.5-5.1); Sodium 142.0 mmol/L (136-145)
[2024-12-25 08:09] VITALS: RESP 21
[2024-12-25 08:12] LABS: Partial Thromboplastin Time 27 Seconds (21-31)
--- NOTE | 2024-12-25 08:33 | Electrocardiogram Report ---
Test Reason : Blood Pressure : */* mmHG Vent. Rate : 77 BPM Atrial Rate : 77 BPM P-R Int : 176 ms QRS Dur : 88 ms QT Int : 376 ms P-R-T Axes : 23 49 56 degrees QTcB Int : 425 ms Normal sinus rhythm Normal ECG When compared with ECG of 24-Dec-2024 18:53, (unconfirmed) No significant change was found Confirmed by Gil Tapia ([id number]) on 12/25/2024 8:32:56 AM Referred By: REFERRED SELF Confirmed By: Gil Tapia
--- NOTE | 2024-12-25 08:39 | Electrocardiogram Report ---
Test Reason : Blood Pressure : */* mmHG Vent. Rate : 65 BPM Atrial Rate : 65 BPM P-R Int : 186 ms QRS Dur : 88 ms QT Int : 404 ms P-R-T Axes : 21 50 37 degrees QTcB Int : 420 ms Normal sinus rhythm Normal ECG When compared with ECG of 24-Dec-2024 21:47, (unconfirmed) No significant change was found Confirmed by Gil Tapia ([id number]) on 12/25/2024 8:39:01 AM Referred By: REFERRED SELF Confirmed By: Gil Tapia
[2024-12-25] MEDS: ENOXAPARIN INJ 40 MG/0.4 ML SYR SQ SCH (08:50)
[2024-12-25] MEDS: ASPIRIN 81 MG ECTAB PO SCH (08:50)
[2024-12-25] MEDS: METOPROLOL SUCC 25MG EXT REL TAB PO SCH (08:50)
[2024-12-25] MEDS: VENLAFAXINE HCL XR 150 MG CAPXR PO SCH (08:50)
[2024-12-25] MEDS: CLOPIDOGREL BISULFATE 75 MG TAB PO SCH (08:50)
[2024-12-25] MEDS ORDERED: METOPROLOL SUCC 25MG EXT REL TAB PO SCH (09:45)
--- NOTE | 2024-12-25 09:59 | Cardiology Consultation ---
Date of Consultation December 25, 2024 Assessment & Plan (1) Left-sided chest pain: (2) Status post insertion of drug-eluting stent into left anterior descending (LAD) artery: (3) Dyslipidemia: (4) Severe obstructive sleep apnea: Plan 54-year-old male presents with left-sided, atypical, sharp chest discomfort. Discomfort somewhat reproducible on exam. Possible musculoskeletal etiology. No evidence of acute coronary syndrome/stent thrombosis with negative high- sensitivity troponin, normal ECG, and normal echocardiogram. Recommend continue dual antiplatelet therapy. Reviewed importance of compliance with recent drug-eluting stent implantation. Add Toprol-XL 25 mg daily. Continue high intensity statin therapy. Patient will increase activity/ambulate in the halls this morning. Discharge to home with cardiology follow-up in 1 to 2 weeks. Appropriate for sublingual nitroglycerin reviewed. Thank you for allow me to participate in care of your patient. Ruben Chang DO, [facility] History of Present Illness Reason for Consultation: chest pain Requesting Physician: Dr. Marcell Johnson Attending Physician: Jacinta Bray MD History of Present Illness 54-year-old male presents to the emergency department with chest pain. Recently hospitalized due to shoulder discomfort and equivocal stress testing. Cardiac catheterization demonstrated severe mid LAD stenosis. A drug-eluting stent was implanted with 'jailed' diagonal branch vessel. Residual moderate RCA and moderate ostial PDA CAD managed medically. Patient describes working in his yard yesterday including raking and using his [place] and lawnmower. When he came indoors afterwards he developed an acute sharp left-sided discomfort. Describes the pain as sharp and stabbing. He took nitroglycerin which change the character of the pain somewhat. At that point he described more of a "deep pain". Due to ongoing discomfort he came to the ER for further evaluation and treatment. 2 sets of high-sensitivity troponin within normal limits. ECG without ischemic changes. Patient slept well overnight utilizing CPAP for treatment of his severe sleep apnea. Admits to compliance with dual antiplatelet therapy and statin since stent implantation. Participated in cardiac rehab on Tuesday without exertional symptoms. Notes a mild 1-2 residual left-sided chest discomfort which is somewhat reproducible with palpation. Repeat ECG this morning without ischemic changes. Telemetry reveals sinus rhythm. Allergies Allergy/AdvReac Type Severity Reaction Status Date / Time prednisone AdvReac Intermediate Pt states Verified 12/06/24 07:40 "I get mean", AGGRESSIVE Home Medications Medication Instructions Recorded Confirmed Type rosuvastatin 20 mg tablet 20 mg PO QPM 12/05/24 12/24/24 History venlafaxine 75 mg tablet 75 mg PO HS 12/05/24 12/24/24 History venlafaxine 75 mg tablet 150 mg PO QAM 12/05/24 12/24/24 History nitroglycerin 0.4 mg sublingual 0.4 mg sublingual Q5M PRN chest 12/07/24 12/24/24 Rx tablet (Nitrostat) pain #7 tabs aspirin 81 mg tablet,delayed 81 mg PO QAM 12/24/24 12/24/24 History release clopidogrel 75 mg tablet 75 mg PO QAM #30 tabs 12/25/24 Rx metoprolol succinate 25 mg 25 mg PO QAM #30 tabs 12/25/24 Rx tablet,extended release 24 hr Patient History Medical History Sore throat Back pain Ureteral calculus Renal colic Thoracic back pain COVID-19 Intractable back pain Bulging discs Nocturnal hypoxemia Surgical History History of lumbar surgery S/P arthroscopic knee surgery Social History Smoking Status: Never smoker Second Hand Exposure: No; Do You Dip or Chew Tobacco: No; Hx Alcohol Use: Yes Alcohol type: beer Hx Substance Use: No Preferred Language: Portuguese Communication Ability: Effective 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 Beliefs That Will Affect Care: None Current Living Situation: Spouse Feels Safe at Home: Yes Assistive Devices: CPAP Review of Systems Review of Systems: All systems reviewed & are unremarkable except as noted in Subjective Physical Exam Constitutional: well nourished; no acute distress Respiratory: no respiratory distress, no labored breathing and no retractions Auscultation: lungs clear to auscultation bilaterally; no crackles, no rales, no rhonchi and no wheezes Cardiovascular: Rate/Rhythm: regular rate and regular rhythm Heart Sounds: normal S1 and normal S2; no murmur Vessels: no JVD and no carotid bruit Extremities: no edema Gastrointestinal (Abdomen): Inspection/Auscultation: normal bowel sounds; abdomen not distended Percussion/Palpation: abdomen soft; abdomen nontender, no guarding and abdomen not rigid Neurologic: CN's II-XI intact bilaterally and moves all extremities; no focal motor deficits Psychiatric: A+Ox3, euthymic affect Results & Data Vital Signs (Past 12 Hours) Vital Signs Temp Pulse Pulse Resp BP BP Pulse Ox 12/25/24 09:34 68 12/25/24 08:08 66 21 116/71 96 12/25/24 04:03 36.5 C 68 18 113/68 95 12/25/24 01:15 12/25/24 01:03 36.4 C L 70 20 120/69 92 12/25/24 01:00 78 12/25/24 00:36 36.6 C 12/25/24 00:33 74 14 120/76 94 12/25/24 00:00 75 15 135/69 94 12/24/24 23:30 77 22 125/77 94 12/24/24 23:11 85 16 126/78 93 12/24/24 23:09 85 23 126/78 94 12/24/24 22:30 74 18 116/84 93 12/24/24 22:30 76 19 116/84 94 12/24/24 22:00 74 18 128/87 93 O2 Del Method 12/25/24 09:34 12/25/24 08:08 CPAP 12/25/24 04:03 CPAP 12/25/24 01:15 Room Air, CPAP 12/25/24 01:03 Room Air 12/25/24 01:00 12/25/24 00:36 12/25/24 00:33 Room Air 12/25/24 00:00 Room Air 12/24/24 23:30 Room Air 12/24/24 23:11 Room Air 12/24/24 23:09 Room Air 12/24/24 22:30 12/24/24 22:30 12/24/24 22:00 Laboratory Results Cardiac Enzymes 12/24/24 12/24/24 12/25/24 Range/Units 18:56 23:42 06:51 AST 22 (13-39) U/L Troponin I High Sens 7.0 7.9 11.7 (0-20) pg/ml Coagulation 12/24/24 12/25/24 Range/Units 18:56 06:51 PT 10.7 (9.0-12.0) Seconds APTT 26 27 (21-31) Seconds CBC 12/24/24 12/25/24 Range/Units 18:56 06:51 WBC 7.30 5.51 (4.8-10.8) K/ul RBC 4.74 4.42 L (4.70-6.10) M/uL Hgb 14.5 13.4 L (14.0-18.0) g/dl Hct 42.0 40.3 L (42.0-52.0) % Plt Count 228 197 (130-400) K/uL Neut # (Auto) 4.23 2.23 (1.40-6.50) K/uL Lymph # (Auto) 2.42 2.47 (1.20-3.40) K/uL [place] # (Auto) 0.44 0.54 (0.11-0.59) K/uL Eos # (Auto) 0.17 0.21 (0.00-0.50) K/uL Baso # (Auto) 0.03 0.05 (0.00-0.20) K/uL Comprehensive Metabolic Panel 12/24/24 12/25/24 Range/Units 18:56 06:51 Sodium 140 142 (136-145) mmol/L Potassium 4.0 3.9 (3.5-5.1) mmol/L Chloride 104 107 (98-107) mmol/L Carbon Dioxide 26 31 (21-32) mmol/L BUN 15 17 (6-23) mg/dl Creatinine 1.09 0.98 (0.6-1.4) mg/dl Glucose 150 H 96 (70-99(Fasting)) mg/dl Calcium 9.2 8.7 (8.6-10.3) mg/dl AST 22 (13-39) U/L ALT 25 (7-52) U/L Alkaline Phosphatase 61 (34-104) U/L Total Protein 7.4 (6.0-8.3) gm/dl Albumin 4.0 (3.4-5.0) gm/dl Intake and Output 12/24/24 12/25/24 12/25/24 22:59 06:59 14:59 Other: Other Intake Source NPO # Unmeasured Voids 1 Weight 112.6 kg 112.4 kg Weight Measurement Method Built in [facility] Care Time/CCT Total # of Minutes Spent Total Time Spent with Patient: Total time spent is greater than 50% in coordination of care (as documented) at patient's floor/unit and/or counseling patient: Coding Level of Care Code 93783 IN/OBS CONSULT LVL 5,80M Diagnoses Left-sided chest pain R07.9 Status post insertion of drug-eluting stent into left anterior descending (LAD) artery Z95.5 Dyslipidemia E78.5 Severe obstructive sleep apnea G47.33
[2024-12-25 11:48] VITALS: BP 118/75; TEMP 98.2; O2SAT 94
--- NOTE | 2024-12-25 13:57 | Hospitalist Progress Note ---
Date of Service December 25, 2024 Assessment & Plan (1) Chest pain: Plan: Assessment and plan below following discussion of case with ED provider and reviewing patient history/pertinent normal/abnormal diagnostic test results. Worsening chest pain Multivessel CAD on recent diagnostic cardiac catheterization LAD status post PCI on 12/06/2024 Appreciate cardiology input and recommendation ACS has been ruled out by serial markers and EKG Echo of the heart shows LVEF 55 to 60%, mild concentric LVH, LV wall motion is normal, grade diastolic dysfunction and there is trace mitral regurgitation Discussed with him and he wants to be discharged He was advised to walk around in the hallway and if he remains free from any symptoms he will be discharged this afternoon Beta-debra was added by the clerical order filler and will be continued Hypertension, stable, patient currently not on maintenance medications, unclear why beta-debra not initiated for CAD during recent confinement Hyperlipidemia, on statin Rx KELLEE on CPAP, patient compliant Mood disorder, stable. Hyperglycemia secondary to prediabetes, hemoglobin A1c of 6.2 from last month Left foot pain of sudden onset, etiology to be determined LLE pain rule out DVT LLE venous Dopplers rule out DVT [facility] Admission and Anticipated Discharge Date Admission Date: December 24, 2024 Subjective 12/25/2024 The patient was seen and examined in telemetry unit He is a status post cardiac stent recently and came in with chest pain and shortness of breath with exertion and also at rest Evaluated by the clerical order filler and advised that he could go home Still has minimal discomfort and he is very anxious and still wanted to go home Review of Systems Review of Systems: All systems reviewed and are unremarkable except as noted below Physical Exam Physical Exam: Lying in bed without any acute distress Constitutional: well developed, well nourished and + obese Eyes: PERRL, conjunctivae normal, anicteric sclerae ENMT: external ear and nose normal, oropharynx normal Neck: trachea midline, no thyromegaly Respiratory: no respiratory distress Auscultation: lungs clear to auscultation bilaterally Cardiovascular: Rate/Rhythm: regular rate and regular rhythm; not tachycardic Heart Sounds: normal S1 and normal S2; no murmur Extremities: no edema Gastrointestinal (Abdomen): Inspection/Auscultation: normal bowel sounds; abdomen not distended Percussion/Palpation: abdomen soft; abdomen nontender Musculoskeletal: No acute arthritis involving any of the joint Neurologic: normal touch/pain/proprioception and moves all extremities; no focal motor deficits Psychiatric: A+Ox3, euthymic affect Lymphatic: no cervical or axillary lymphadenopathy Results & Data Results & Data Vital Signs (Past 12 Hours) Vital Signs Temp Pulse Pulse Resp BP Pulse Ox O2 Del Method 12/25/24 11:47 36.8 C 66 21 118/75 94 Room Air 12/25/24 09:34 68 12/25/24 08:08 66 21 116/71 96 CPAP 12/25/24 04:03 36.5 C 68 18 113/68 95 CPAP Laboratory Results 1 Short CBC 12/24/24 12/25/24 Range/Units 18:56 06:51 WBC 7.30 5.51 (4.8-10.8) K/ul Hgb 14.5 13.4 L (14.0-18.0) g/dl Hct 42.0 40.3 L (42.0-52.0) % Plt Count 228 197 (130-400) K/uL BMP 12/24/24 12/25/24 18:56 06:51 Sodium 140 142 Potassium 4.0 3.9 Chloride 104 107 Carbon Dioxide 26 31 BUN 15 17 Creatinine 1.09 0.98 Glucose 150 H 96 Calcium 9.2 8.7 Cardiac Enzymes 12/24/24 Range/Units 23:42 Total Creatine Kinase 205 (30-223) U/L Liver Function 12/24/24 Range/Units 18:56 Total Bilirubin 0.3 (0.2-1.0) mg/dl AST 22 (13-39) U/L ALT 25 (7-52) U/L Alkaline Phosphatase 61 (34-104) U/L Albumin 4.0 (3.4-5.0) gm/dl Medications Administered Current Inpatient Medications Aspirin (Aspirin 81 Mg Ectab) 81 mg PO [facility] Stop: 01/24/25 08:59 Last Admin: 12/25/24 08:50 Dose: 81 mg Clopidogrel Bisulfate (Clopidogrel Bisulfate 75 Mg Tab) 75 mg PO [facility] Stop: 01/24/25 08:59 Last Admin: 12/25/24 08:50 Dose: 75 mg Enoxaparin Sodium (Enoxaparin Inj 40 Mg/0.4 Ml Syr) 40 mg SQ [facility] Stop: 01/24/25 08:59 Last Admin: 12/25/24 09:13 Dose: Not Given Promethazine HCl (Phenergan) 12.5 mg in 50.5 mls @ 202 mls/hr IV Q6H PRN PRN Reason: Nausea And Vomiting Stop: 01/24/25 00:16 Lactated Ringer's (Lr) 1,000 mls @ 60 mls/hr IV .[id number] STA Stop: 12/25/24 17:03 Last Admin: 12/25/24 01:09 Dose: 60 mls/hr Lorazepam (Lorazepam 0.5 Mg Tab) 0.5 mg PO TID PRN PRN Reason: Anxiety Stop: 01/24/25 00:16 Metoprolol Succinate (Metoprolol Succ 25mg Ext Rel Tab) 25 mg PO QAM ALEN Stop: 01/24/25 08:59 Last Admin: 12/25/24 08:50 Dose: 25 mg Morphine Sulfate (Morphine Sulfate 4 Mg/Ml 1 Ml Carp\Vial) 4 mg IV Q4H PRN PRN Reason: Pain Stop: 01/08/25 00:16 Nitroglycerin (Nitroglycerin Sl 0.4 Mg/Tab Tab) 0.4 mg SL Q5M PRN PRN Reason: chest pain Stop: 01/24/25 00:19 Oxycodone HCl (Oxycodone Hcl Ir 5 Mg Tab (Immediate Release)) 5 - 10 mg PO QID PRN PRN Reason: Pain Stop: 01/08/25 00:16 Last Admin: 12/25/24 10:38 Dose: 5 mg Rosuvastatin Calcium (Rosuvastatin Calcium 20 Mg Tab) 20 mg PO QPM ALEN Stop: 01/24/25 01:29 Last Admin: 12/25/24 01:45 Dose: 20 mg Venlafaxine HCl (Venlafaxine Hcl Xr 150 Mg Capxr) 150 mg PO QAM ALEN Stop: 01/24/25 08:59 Last Admin: 12/25/24 08:50 Dose: 150 mg Venlafaxine HCl (Venlafaxine Hcl Xr 75 Mg Capxr) 75 mg PO HS ALEN Stop: 01/24/25 01:29 Last Admin: 12/25/24 01:45 Dose: 75 mg
[2024-12-25 15:26] VITALS: PULSE 76
[2024-12-25] MEDS ORDERED: VENLAFAXINE HCL XR 75 MG CAPXR PO SCH (21:00)
[2024-12-25] MEDS ORDERED: ROSUVASTATIN CALCIUM 20 MG TAB PO SCH (21:00)
--- NOTE | 2025-01-15 09:22 | Discharge Summary ---
Date of Service January 15, 2025 Delayed Discharge Summary for 12/25/2024 Admission HPI Per Admitting Provider History obtained from patient and records. Medical history significant for CAD status post recent stent, hypertension, hyperlipidemia, KELLEE on CPAP, mood disorder. Recent confinement 2 weeks ago for multivessel CAD. Calcified, diffuse prox-mid LAD disease up to 90% at takeoff of D2, 40-50% mid RCA. 60-70% ostial RPDA. 40-50% ostial RPAV as per cath report. PCI of LAD lesion with single XIOMY done. Patient still with mild chest pain/SOB symptoms following discharge from the hospital. Patient discharged on new aspirin and statin Rx meds. Yesterday, patient noted left foot pain which later radiated to left lower leg. More pronounced bump on foot dorsum as per patient. No recollection of recent trauma. Patient experienced more intense achy chest pain going to his left arm while doing yard work today. Nonpleuritic. No cough. Some SOB. Compliant with home meds. Chest discomfort partially improved with nitroglycerin intake at home. Headache symptoms after nitro intake. Patient brought to ER by for evaluation. Medical History as above Surgical History : Urologic procedure, back surgery, knee surgery, umbilical hernia repair Family History : DM, colon cancer; negative heart disease Personal/Social history : Non-smoker, occasional EtOH intake, disabled Principal Diagnosis Chest painno ACS, likely musculoskeletal, CAD status post LAD stent placement recently Discharge Exam Lying in bed without any acute distress Constitutional well developed, well nourished and + obese Eyes PERRL, conjunctivae normal, anicteric sclerae ENMT external ear and nose normal, oropharynx normal Neck trachea midline, no thyromegaly Respiratory no respiratory distress Auscultation: lungs clear to auscultation bilaterally Cardiovascular Rate/Rhythm: regular rate and regular rhythm; not tachycardic Heart Sounds: normal S1 and normal S2; no murmur Extremities: no edema Gastrointestinal (Abdomen) Inspection/Auscultation: normal bowel sounds; abdomen not distended Percussion/Palpation: abdomen soft; abdomen nontender Neurologic normal touch/pain/proprioception and moves all extremities; no focal motor deficits Psychiatric A+Ox3, euthymic affect Lymphatic no cervical or axillary lymphadenopathy Discharge Data Allergies Allergy/AdvReac Type Severity Reaction Status Date / Time prednisone AdvReac Intermediate Pt states Verified 12/06/24 07:40 "I get mean", AGGRESSIVE Consultations 12/24/24 21:51 ED Decision to Admit Stat 12/25/24 01:03 Consult Cardiology Routine Ordered Studies 12/25/24 00:19 US venous doppler LE LT Stat 12/25/24 05:00 CT foot LT wo con Stat Hospital Course (1) Chest pain: Assessment and plan below following discussion of case with ED provider and reviewing patient history/pertinent normal/abnormal diagnostic test results. Worsening chest pain Multivessel CAD on recent diagnostic cardiac catheterization LAD status post PCI on 12/06/2024 Appreciate cardiology input and recommendation ACS has been ruled out by serial markers and EKG Echo of the heart shows LVEF 55 to 60%, mild concentric LVH, LV wall motion is normal, grade diastolic dysfunction and there is trace mitral regurgitation Discussed with him and he wants to be discharged He was advised to walk around in the hallway and if he remains free from any symptoms he will be discharged this afternoon Beta-debra was added by the oil tanker captain and will be continued Hypertension, stable, patient currently not on maintenance medications, unclear why beta-debra not initiated for CAD during recent confinement Hyperlipidemia, on statin Rx KELLEE on CPAP, patient compliant Mood disorder, stable. Hyperglycemia secondary to prediabetes, hemoglobin A1c of 6.2 from last month Left foot pain of sudden onset, etiology to be determined LLE pain rule out DVT LLE venous Dopplers rule out DVT DVT prophylaxis. Lovenox subcu Full code Total Time Total Time Spent Total Time Spent (In Minutes): 35 Minutes Discharge Plan Discharge Items Patient Disposition: Home - Self-Care Reason For Visit: CP Discharge Diagnosis: Chest painno ACS, likely musculoskeletal, CAD status post LAD stent placement recently Condition on Discharge: Fair Activity: Resume your previous activity Non-emergency contact: Primary Care Provider Call non-emergency contact if: you have any medication questions and your symptoms worsen Follow-up/Referrals: Kan Cunningham MD [Primary Care Provider] - 12/31/24 11:20 am Diet: Heart Healthy Addtl Attending Provider Instructions: Please take precautions to avoid falls Take your medications as advised- do not miss any aspirin and/or Plavix The cardiology office will call you with an appointment within 2 weeks Please keep appointments with your healthcare provider Pending Studies at Discharge: No Stand-Alone Forms: My [employer]_ Media, Smoking Cessation Medications and DC Order Prescriptions: New metoprolol succinate 25 mg Tablet Extended Release 24 Hr 25 mg PO QAM Qty: 30 0RF Continued rosuvastatin 20 mg tablet 20 mg PO QPM venlafaxine 75 mg tablet 75 mg PO HS venlafaxine 75 mg tablet 150 mg PO QAM nitroglycerin [Nitrostat] 0.4 mg Tablet, Sublingual 0.4 mg sublingual Q5M PRN (Reason: chest pain ) Qty: 7 0RF aspirin 81 mg tablet,delayed release (DR/EC) 81 mg PO QAM clopidogrel 75 mg Tablet 75 mg PO QAM Qty: 30 0RF Discharge Orders: Discharge Order (Routine); Ordered 12/25/24 Ordered By: Jacinta Bray Admission Data Admit Date/Time: 12/24/24 23:49 Attending Provider: Jacinta Bray Admit Provider: Marcell Johnson Primary Care Provider: Kan Cunningham Other Providers: Ruben Chang Other Interventions: Discharge Summary Assessment (RN) Last Done: 12/25/24 15:03
== END 2024-12-25 16:08 | disposition home or self-care (01) ==
LOC: 2S 18:44 → ED 18:44 → 2S 12-25 00:36